=== PATIENT | female | born 2000 | race Caucasian/White ===

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

== ENCOUNTER 2022-04-24 11:17 | Emergency (ER) | payer BC, SELFPAY ==
--- NOTE | ~2022-04-24 | CT_ITS ---
EXAMINATION: CT abdomen pelvis w con DATE: 04/24/2022 15:12 INDICATION: Urinary tract infection TECHNIQUE: Computed tomography (CT) of the abdomen and pelvis was performed with 100 cc Omnipaque 350 intravenous contrast. The dose-length product was 177.50 mGy-cm. Automated exposure control and iter ative reconstruction technique were employed. COMPARISON: None. FINDINGS: Lung bases are unremarkable. Heart size normal. No significant pleural or pericardial effus ion. There is mild periportal edema. Gallbladder is contracted. There is an atrophic right kidney wit h compensatory hypertrophy of the left kidney. There are subtle geographic areas of hypoperfusion in the upper pole of the right kidney, suspicious for pyelonephritis. There is a left extrarenal pelvis. Bladder is unremarkable. The spleen, pancreas, adrenal glands are unremarkable. Nonobstructive bowel gas pattern. No free air or free fluid. No acute osseous abnormality. IMPRESSION: 1. Geographic hypoperfusion upper pole of the left kidney, suspicious for pyelonephritis. 2: Atrophic right kidney. Reviewed, dictated and finalized at location A. IMPRESSION: 1. Geographic hypoperfusion upper pole of the left kidney, suspicious for pyelo nephritis. 2: Atrophic right kidney.
[2022-04-24 11:53] VITALS: BP 138/84; PULSE 88; RESP 19; TEMP 36.7; O2SAT 100
[2022-04-24 13:29] LABS: Appearance Urine Slightly Cloudy (Clear); Bilirubin Urine 1+ (Negative); Blood Urine 2+ (Negative); Color Urine Yellow (Yellow); Glucose Urine UA Negative (Negative); Ketones Urine 3+ mg/dL (Negative); Leukocyte Esterase Ur 1+ LEU/UL (Negative); Nitrate Urine Negative (Negative); Protein Urine Negative (Negative); Specific Grav Ur 1.015 (1.001-1.035)
[2022-04-24 13:34] LABS: Mucus Urine Rare /lpf; Squamous Epithelial Cell Urine Moderate /hpf (Few); WBC Clumps Urine Present /HPF; WBC Urine 51-75 /hpf
[2022-04-24 13:36] LABS: Add Urine Microscopic? YES
[2022-04-24 13:36] LABS: Basophils Percent Auto 0.2 % (0.2-1.2); Eosinophils Absolute Auto 0.1 K/mm3 (0-0.3); Eosinophils Percent Auto 1.5 % (0-4.4); Hematocrit 34.9 % (37.0-47.0); Hemoglobin 10.5 g/dL (12.0-15.0); Immature Granulocyte Absolute 0.01 K/mm3 (0.00-0.031); Immature Granulocyte Percent A 0.1 % (0-0.5); Lymphocytes Absolute Auto 1.34 K/mm3 (0.9-3.2); Lymphocytes Percent Auto 16.6 % (18.3-44.2); Mean Corpuscular HGB Conc 30.1 g/dl (32-36); Mean Corpuscular Hemoglobin 22.1 pg (26-34); Mean Corpuscular Volume 73.5 fl (80-100); Mean Platelet Volume 11.2 fl (7.4-10.4); Monocytes Absolute Auto 0.8 K/mm3 (0.1-0.6); Monocytes Percent Auto 9.4 % (2.6-8.5); Neutrophils Absolute Auto 5.8 K/mm3 (1.3-6.7); Neutrophils Percent Auto 72.2 % (45.5-73.1); Platelet Count Result 364 k/mm3 (150-375); Red Blood Count 4.75 M/mm3 (4.2-5.4); Red Cell Distribution Width 14.6 % (11.5-14.5); White Blood Count 8.1 K/mm3 (4.5-10.0)
[2022-04-24 13:45] LABS: Alanine Aminotransferase 12 U/L (6-35); Alkaline Phosphatase 67 U/L (38-126); Anion Gap 9 mmol/L (8-16); Aspartate Amino Transferase 23 U/L (14-36); Bilirubin,Total 0.5 mg/dL (0.2-1.3); Blood Urea Nitrogen 8 mg/dL (7-17); Calcium 9.4 mg/dL (8.4-10.2); Carbon Dioxide 25 mmol/L (22-30); Chloride 103 mmol/L (98-107); Estimated CRCL calculation 110 ml/min; Estimated Glomerular Filt Rate > 60; Glucose 98 mg/dL (65-110); Potassium 3.7 mmol/L (3.4-5.0); Sodium 137 mmol/L (137-145)
--- NOTE | 2022-04-24 13:56 | ED.FEMALEGU ---
HPI - Female Genitourinary General Chief complaint: Urogenital-Female <Lisandra Pisano PA-C - Last Filed: 04/24/22 17:05> Stated complaint: bladder, kidney infection <ELÍAS Oakes Last Filed: 04/24/22 17:05> Time Seen by Provider: 04/24/22 13:23 <Lisandra Pisano PA-C - Last Filed: 04/24/22 17:05> Source: patient <ELÍAS Oakes Last Filed: 04/24/22 17:05> Mode of arrival: ambulatory <ELÍAS Oakes Last Filed: 04/24/22 17:05> Limitations: no limitations <ELÍAS Oakes Last Filed: 04/24/22 17:05> History of Present Illness HPI Narrative: Patient is a 22-year-old female who presents to the ED with report of bilateral flank pain. Patient reports she first developed flank pain, dysuria, urinary frequency 6 days ago. She was seen at an urgent care 3 days ago and told she had a urinary tract infection and possible kidney infection. She did not have lab work or imaging performed at that time. She was started on Macrobid and has been taking this as prescribed. Today, the pain became worse, prompting her evaluation in the ED. She has been taking Tylenol at home for the pain, but has not taken anything today. Also reports nausea, but denies vomiting, fever, chills, hematuria, diarrhea, constipation, abdominal pain. <Lisandra Pisano PA-C - Last Filed: 04/24/22 17:05> Related Data Allergies/Adverse reactions: Allergies Allergy/AdvReac Type Severity Reaction Status Date / Time No Known Allergies Allergy Mild Unverified 06/21/21 09:46 <ELÍAS Oakes Last Filed: 04/24/22 17:05> Review of Systems Review of Systems: CONSTITUTIONAL: Denies fever, chills, or sweats. CARDIOVASCULAR: Denies chest pain. RESPIRATORY: Denies cough or dyspnea. GASTROINTESTINAL: Reports nausea. Denies abdominal pain, constipation, vomiting, or diarrhea. GENITOURINARY: Reports dysuria, urinary frequency. Denies hematuria. MUSCULOSKELETAL: Reports bilateral flank pain. NEUROLOGIC: Denies headache, numbness, or weakness. <Lisandra Pisano PA-C - Last Filed: 04/24/22 17:05> All systems reviewed & are unremarkable except as noted in HPI and below <Lisandra Pisano PA-C - Last Filed: 04/24/22 17:05> PMFSH Past Medical History Medical History: Medical History Congenital tlizvv-hpoqaps-twxed reflux History of strep sore throat <Lisandra Pisano PA-C - Last Filed: 04/24/22 17:05> Surgical History Surgical History: Surgical History S/P tonsillectomy and adenoidectomy <Lisandra Pisano PA-C - Last Filed: 04/24/22 17:05> Family History Family History: Family History (Updated 06/21/21 @ 10:23 by Davina Gutierrez NP) Father Hypertension Heart disease Mother Asthma <Lisandra Pisano PA-C - Last Filed: 04/24/22 17:05> Social History Social History: Social History Tobacco type: e-cigarettes/vaping Alcohol intake: never Substance use: never Gender identity (if verbalized by the patient): Female <Lisandra Pisano PA-C - Last Filed: 04/24/22 17:05> Exam Narrative: GENERAL: Well appearing, well-nourished, non-toxic, in no acute distress. HEAD: Normocephalic, atraumatic. NECK: Supple. No adenopathy, no masses. RESPIRATORY: Airway patent, respirations nonlabored. Clear to auscultation bilaterally, no rales, rhonchi, wheezing. CARDIOVASCULAR: Regular rate and rhythm without murmurs, rubs, or gallops. Peripheral pulses 2+ and equal bilaterally. ABDOMINAL: Soft, mild tenderness palpation over suprapubic region. Nondistended, no hepatosplenomegaly. Normoactive BS. Bilateral CVA tenderness to percussion, L > R. MUSCULOSKELETAL: Moves all extremities. Strength/ROM intact without gross deformities. Mild tenderness to palpation in the lower lumbar region bilaterally. No midline thoracic or lumba
[2022-04-24 14:02] LABS: Anisocytosis 1+ (NORMAL); Hypochromasia 1+ (NORMAL); Platelet Estimate Adequate (Adequate)
[2022-04-24] MEDS: SODIUM CHLORIDE 0.9% IV 1,000 ML 999 ML IV CONT ×2 (14:11→15:15)
[2022-04-24] MEDS: ONDANSETRON INJ 4 MG/2 ML VIAL IV PUSH (14:12)
[2022-04-24 15:26] VITALS: BP 122/78; PULSE 76; RESP 18; O2SAT 99
== END 2022-04-24 16:34 | disposition home or self-care (01) ==
PROVIDERS: Physician Assistant; Emergency Provider Emergency Medicine
DX: N12 Tubulo-interstitial nephritis, not specified as acute or chronic (principal); F17.290 Nicotine dependence, other tobacco product, uncomplicated; Z87.718 Personal history of other specified (corrected) congenital malformations of genitourinary system; N26.1 Atrophy of kidney (terminal)
CPT/HCPCS: 36415; 74177; 80053; 81001; 81025; 85025; 87086; 87088; 96361; 96365; 96367; 96375; 99284; J0131; J0696; J2405; J7030; Q9967

== ENCOUNTER 2022-07-02 19:20 | Emergency (ER) | payer BC, SELFPAY ==
--- NOTE | ~2022-07-02 | CT_ITS ---
EXAMINATION: CT abdomen pelvis w con DATE: 07/02/2022 21:00 INDICATION: Left flank pain. TECHNIQUE: Computed tomography (CT) of the abdomen and pelvis was performed with 100 mL Omnipaque 350 intravenous contrast. Automated exposure control and iterative reconstruction technique were employe d. The dose-length product was 189.54 mGy-cm. COMPARISON: CT abdomen and pelvis 04/24/2022 FINDINGS: The visualized portions of the lung bases are clear without pneumonia or pleural effusion. The heart size is normal. No pericardial effusion. The liver, gallbladder, spleen, pancreas, and adre nal glands are normal. There is moderate atrophy of right kidney. There is mild atrophy of left kidne y. There is urothelial thickening and enhancement throughout the left ureter, consistent with pyeliti s. There are no dilated loops of bowel. The appendix is normal. There are no pathologically enlarged lymph nodes. There is physiologic fluid in the pelvis. There is a benign bone island in proximal righ t femur. IMPRESSION: 1. Left-sided pyelitis. 2. Moderate atrophy of right kidney and mild atrophy of left kidney. Reviewed, dictated and finalized at location A.
[2022-07-02 19:25] VITALS: BP 134/85; PULSE 102; RESP 18; TEMP 36.8; O2SAT 99
--- NOTE | 2022-07-02 19:44 | PC.NURSE ---
Patient states she is having pain in the left flank area. patient has history of kidney inflammation and bladder infections. patient denies pain with urination or urgency
[2022-07-02 20:16] LABS: Basophils Percent Auto 0.4 % (0.2-1.2); Eosinophils Absolute Auto 0.2 K/mm3 (0-0.3); Eosinophils Percent Auto 1.3 % (0-4.4); Hematocrit 35.3 % (37.0-47.0); Hemoglobin 10.4 g/dL (12.0-15.0); Immature Granulocyte Absolute 0.04 K/mm3 (0.00-0.031); Immature Granulocyte Percent A 0.4 % (0-0.5); Lymphocytes Absolute Auto 1.29 K/mm3 (0.9-3.2); Lymphocytes Percent Auto 11.5 % (18.3-44.2); Mean Corpuscular HGB Conc 29.5 g/dl (32-36); Mean Corpuscular Hemoglobin 21.1 pg (26-34); Mean Corpuscular Volume 71.7 fl (80-100); Mean Platelet Volume 10.8 fl (7.4-10.4); Monocytes Absolute Auto 0.9 K/mm3 (0.1-0.6); Monocytes Percent Auto 7.7 % (2.6-8.5); Neutrophils Absolute Auto 8.9 K/mm3 (1.3-6.7); Neutrophils Percent Auto 78.7 % (45.5-73.1); Platelet Count Result 412 k/mm3 (150-375); Red Blood Count 4.92 M/mm3 (4.2-5.4); Red Cell Distribution Width 15.8 % (11.5-14.5); White Blood Count 11.3 K/mm3 (4.5-10.0)
[2022-07-02 20:17] LABS: Appearance Urine Clear (Clear); Bilirubin Urine Negative (Negative); Color Urine Yellow (Yellow); Glucose Urine UA Negative (Negative); Ketones Urine Negative (Negative); Leukocyte Esterase Ur 1+ LEU/UL (Negative); Nitrate Urine Negative (Negative); Protein Urine 2+ mg/dL (Negative); Urobilinogen Urine 0.2 mg/dL (<2.0)
[2022-07-02] MEDS: ONDANSETRON INJ 4 MG/2 ML VIAL IV PUSH (20:20)
[2022-07-02] MEDS: KETOROLAC 15 MG/ML VIAL (*BKC) IV PUSH (20:20)
[2022-07-02 20:21] LABS: Bacteria Urine Trace /hpf; Mucus Urine Rare /lpf; Squamous Epithelial Cell Urine Rare /hpf (Few); WBC Urine >75 /hpf
[2022-07-02 20:26] LABS: Alanine Aminotransferase 17 U/L (6-35); Albumin Level 5.1 g/dL (3.5-5.1); Alkaline Phosphatase 49 U/L (38-126); Anion Gap 15 mmol/L (8-16); Aspartate Amino Transferase 33 U/L (14-36); Bilirubin,Total 0.4 mg/dL (0.2-1.3); Blood Urea Nitrogen 8 mg/dL (7-17); Calcium 9.8 mg/dL (8.4-10.2); Carbon Dioxide 22 mmol/L (22-30); Chloride 103 mmol/L (98-107); Estimated Glomerular Filt Rate > 60; Glucose 82 mg/dL (65-110); Potassium 3.8 mmol/L (3.4-5.0); Sodium 140 mmol/L (137-145)
[2022-07-02 20:28] LABS: Add Urine Microscopic? YES; Blood Urine Trace-Intact (Negative)
--- NOTE | 2022-07-02 20:29 | ED.BACK ---
HPI - Back Pain/Injury General Chief Complaint: Back Pain/Injury Stated Complaint: flank pain Time Seen by Provider: 07/02/22 19:35 History of Present Illness HPI Narrative: 22-year-old female here with history of congenital vesicoureteral reflux for evaluation of back pain over the past several days. States that the pain is present in her left flank and does not radiate. She notes a history of this pain when she was diagnosed with a kidney infection 3 months ago at this hospital. Patient reports dysuria but no urgency or frequency, hematuria, fevers or chills. Has not taken any medication for her pain. Reports some nausea but no vomiting or abdominal pain. Related Data Allergies Allergy/AdvReac Type Severity Reaction Status Date / Time No Known Allergies Allergy Mild Unverified 07/02/22 19:41 Review of Systems Review of Systems: Gen.: Denies fevers or chills Eyes: Denies eye pain or visual change ENT: Denies congestion Respiratory: Denies shortness of breath or cough CV: Denies chest pain or palpitations GI: Denies abdominal pain nausea, emesis or diarrhea reports burning. Musculoskeletal: Reports left sided flank pain. Neuro: Denies numbness, tingling, weakness or focal weakness Skin: Denies rash Except as documented, all other systems reviewed and negative PMFSH Past Medical History Medical History Congenital nhyfbs-zvqdkdm-fpoti reflux History of strep sore throat Surgical History Surgical History S/P tonsillectomy and adenoidectomy Family History Family History (Updated 06/21/21 @ 10:23 by Davina Gutierrez NP) Father Hypertension Heart disease Mother Asthma Social History Social History Tobacco type: e-cigarettes/vaping Alcohol intake: never Substance use: never Gender identity (if verbalized by the patient): Female Exam Narrative: APPEARANCE: Well appearing, no pain in distress, well-nourished. Head: Normocephalic and atraumatic. EYES: PERRLA/EOMI, conjunctivae clear NOSE: No nasal drainage EARS: External ear normal in appearance THROAT: Oropharynx is clear. Mucous membranes are moist. NECK: Supple. No adenopathy, no masses. RESPIRATORY: Airway patent, respirations nonlabored. Clear to auscultation bilaterally, no rales, rhonchi, wheezing. CARDIOVASCULAR: Regular rate and rhythm without murmurs, rubs, or gallops. ABDOMINAL: Normoactive bowel sounds. Soft, nontender, nondistended. No rebound tenderness or guarding. MUSCULOSKELETAL: Left-sided CVA tenderness. Extremities are warm and well-perfused. Moves all extremities well. No edema. NEURO: Normal speech. No focal neurologic deficits. SKIN: Skin is warm and dry. No rashes. PSYCHIATRIC: Normal affect/mood. Course Vital Signs Vital signs: Vital Signs Temperature 98.2 F 07/02/22 19:25 Pulse Rate 102 H 07/02/22 19:25 Respiratory Rate 18 07/02/22 19:25 Blood Pressure 134/85 07/02/22 19:25 Pulse Oximetry 99 07/02/22 19:25 Oxygen Delivery Room Air 07/02/22 19:25 Temperature 98.2 F 07/02/22 19:25 Pulse Rate 72 07/02/22 22:05 Respiratory Rate 18 07/02/22 22:05 Blood Pressure 132/85 07/02/22 22:05 Pulse Oximetry 100 07/02/22 22:05 Oxygen Delivery Room Air 07/02/22 19:25 MDM - Back Pain/Injury MDM Narrative Medical decision making narrative: 22-year-old female here for evaluation of left flank pain and urinary symptoms over the past several days. Here she is nontoxic-appearing, initially slightly tachycardic to 102 which resolved with IV fluids. She has left CVA tenderness. Work-up significant for leukocytosis to 11.3, urinalysis with over 75 white blood cells and leuks consistent with UTI. Normal lactic. Normal kidney function. CT abdomen pelvis with evidence of pyelitis and atrophy of the kidneys,
[2022-07-02 20:39] LABS: Hypochromasia 2+ (NORMAL)
[2022-07-02 20:40] LABS: Microcytosis 1+ (NORMAL)
[2022-07-02] MEDS: SODIUM CHLORIDE 0.9% IV 1,000 ML 999 ML IV CONT (21:28)
[2022-07-02 21:41] LABS: Lactic Acid Reflex 0.8 mmol/L (0.7-2.0)
[2022-07-02 22:05] VITALS: BP 132/85; PULSE 72; RESP 18; O2SAT 100
--- NOTE | 2022-07-20 08:23 | PC.NURSE ---
LATE ENTRY This note is being entered to document information to the patient's record. The following information was omitted on [07/02/22], by [Dinah CARLSON]. NS stopped at [id number].
== END 2022-07-02 22:15 | disposition home or self-care (01) ==
PROVIDERS: Physician Assistant; Emergency Provider Emergency Medicine
DX: N10 Acute pyelonephritis (principal); N39.0 Urinary tract infection, site not specified; B96.89 Other specified bacterial agents as the cause of diseases classified elsewhere; Z16.23 Resistance to quinolones and fluoroquinolones; Q62.7 Congenital vesico-uretero-renal reflux; F17.290 Nicotine dependence, other tobacco product, uncomplicated
CPT/HCPCS: 36415; 74177; 80053; 81001; 81025; 83605; 85025; 87077; 87086; 87147; 87181; 87186; 96361; 96365; 96375; 99284; J0696; J1885; J2405; J7030; Q9967

== ENCOUNTER 2022-07-14 18:31 | Emergency (ER) | payer BC, SELFPAY ==
[2022-07-14] VITALS (7 sets, daily range): BP systolic 122–138; BP diastolic 74–84; PULSE 80–93; RESP 16; TEMP 36.5; O2SAT 96–100
--- NOTE | ~2022-07-14 | CT_ITS ---
EXAMINATION: CT abdomen pelvis w con DATE: 07/14/2022 20:29 INDICATION: Bilateral flank pain. Recent pyelonephritis. TECHNIQUE: Computed tomography (CT) of the abdomen and pelvis was performed with 100 mL Omnipaque-350 intravenous contrast. Automated exposure control and iterative reconstruction technique were employe d. The dose-length product was 177.41 mGy-cm. COMPARISON: 07/02/2022 FINDINGS: Lung bases are clear. Heart size is normal. No pericardial or pleural effusion. Liver, gallbladder, s pleen, pancreas and bilateral adrenal glands are normal. Cortical atrophy at both kidneys, moderate o n the right and mild on the left. The prior thickening enhancing urothelium at the left renal pelvis has resolved. Bladder, uterus and bilateral adnexa are unremarkable. Tampon within vaginal vault. [place] els including the appendix are normal. No free intraperitoneal gas or fluid. No pathologically enlarg ed abdominal or pelvic lymphadenopathy. Bone island at the right femoral neck. IMPRESSION: 1. No acute intra-abdominal/pelvic process. 2. Cortical scarring at the bilateral kidneys, moderate on the right and mild on the left likely sequ geri of prior infections. Reviewed, dictated and finalized at location A. IMPRESSION: 1. No acute intra-abdominal/pelvic process. 2. Cortical scarring at the bilateral kidneys, moderate on the right and mild o n the left likely sequela of prior infections.
--- NOTE | 2022-07-14 19:06 | ED.GENADULT ---
HPI - General Adult General Chief complaint: Back Pain/Injury <Lisandra Key PA-C - Last Filed: 07/14/22 22:00> Stated complaint: lower back pain <ELÍAS Stanley Last Filed: 07/14/22 22:00> Time Seen by Provider: 07/14/22 18:46 <ELÍAS Stanley Last Filed: 07/14/22 22:00> Source: patient and old records reviewed <ELÍAS Stanley Last Filed: 07/14/22 22:00> Mode of arrival: ambulatory <ELÍAS Stanley Last Filed: 07/14/22 22:00> Limitations: no limitations <ELÍAS Stanley Last Filed: 07/14/22 22:00> History of Present Illness HPI narrative: Patient is a 22-year-old female, with PMHx of congenital vesicoureteral reflux, who presents the ED with report of bilateral flank pain. Per patient's records, patient was seen in the ED on 07/02 for similar symptoms and diagnosed with acute left-sided pyelitis with urinary tract infection. She was given a dose of Ceftriaxone in the ED and prescribed ciprofloxacin initially, however culture resulted to be resistant to Cipro. The provider tried to call patient to inform Bactrim being was being sent to the pharmacy however patient was unaware of this. Culture was sensitive to Ceftriaxone. Patient reports she has felt improved since the last time she was here, however over the last 2 days she has had worsening pain in her flanks bilaterally. Last took Tylenol earlier today without relief. Denies any fever, nausea, vomiting, dysuria, hematuria, abdominal pain. <ELÍAS Stanley Last Filed: 07/14/22 22:00> Related Data Allergies/adverse reactions: Allergies Allergy/AdvReac Type Severity Reaction Status Date / Time No Known Allergies Allergy Mild Verified 07/14/22 18:45 <ELÍAS Stanley Last Filed: 07/14/22 22:00> Review of Systems Review of Systems: CONSTITUTIONAL: Denies fever, chills, or sweats. CARDIOVASCULAR: Denies chest pain. RESPIRATORY: Denies dyspnea. GASTROINTESTINAL: Denies abdominal pain, nausea, vomiting, or diarrhea. GENITOURINARY: Denies dysuria or hematuria. MUSCULOSKELETAL: Reports bilateral flank pain. <Lisandra Key PA-C - Last Filed: 07/14/22 22:00> All systems reviewed & are unremarkable except as noted in HPI and below <Lisandra Key PA-C - Last Filed: 07/14/22 22:00> [facility] Past Medical History Medical History: Medical History Congenital bhiyhy-ftuausu-wehar reflux History of strep sore throat <Lisandra Key PA-C - Last Filed: 07/14/22 22:00> Surgical History Surgical History: Surgical History S/P tonsillectomy and adenoidectomy <Lisandra Key PA-C - Last Filed: 07/14/22 22:00> Family History Family History: Family History (Updated 06/21/21 @ 10:23 by Davina Gutierrez NP) Father Hypertension Heart disease Mother Asthma <Lisandra Key PA-C - Last Filed: 07/14/22 22:00> Social History Social History: Social History Tobacco type: e-cigarettes/vaping Alcohol intake: never Substance use: never Gender identity (if verbalized by the patient): Female <Lisandra Key PA-C - Last Filed: 07/14/22 22:00> Exam Narrative: GENERAL: Well appearing, thin, non-toxic, in no acute distress. HEAD: Normocephalic, atraumatic. NECK: Supple. No adenopathy, no masses. RESPIRATORY: Airway patent, respirations nonlabored. Clear to auscultation bilaterally, no rales, rhonchi, wheezing. CARDIOVASCULAR: Regular rate and rhythm without murmurs, rubs, or gallops. Peripheral pulses 2+ and equal bilaterally. ABDOMINAL: Soft, no significant tenderness palpation, nondistended, no hepatosplenomegaly. Normoactive BS. Bilateral CVA tenderness to percussion, worse on left. MUSCULOSKELETAL: M
[2022-07-14 19:19] LABS: Basophils Percent Auto 0.5 % (0.2-1.2); Eosinophils Absolute Auto 0.3 K/mm3 (0-0.3); Eosinophils Percent Auto 4.1 % (0-4.4); Hematocrit 37.4 % (37.0-47.0); Hemoglobin 11.1 g/dL (12.0-15.0); Immature Granulocyte Absolute 0.02 K/mm3 (0.00-0.031); Immature Granulocyte Percent A 0.3 % (0-0.5); Lymphocytes Absolute Auto 1.64 K/mm3 (0.9-3.2); Mean Corpuscular HGB Conc 29.7 g/dl (32-36); Mean Corpuscular Hemoglobin 21.4 pg (26-34); Mean Corpuscular Volume 72.1 fl (80-100); Mean Platelet Volume 11.3 fl (7.4-10.4); Monocytes Absolute Auto 0.7 K/mm3 (0.1-0.6); Monocytes Percent Auto 11.1 % (2.6-8.5); Neutrophils Absolute Auto 3.9 K/mm3 (1.3-6.7); Platelet Count Result 430 k/mm3 (150-375); Red Blood Count 5.19 M/mm3 (4.2-5.4); Red Cell Distribution Width 15.7 % (11.5-14.5); White Blood Count 6.6 K/mm3 (4.5-10.0)
[2022-07-14 19:37] LABS: Alanine Aminotransferase 19 U/L (6-35); Albumin Level 5.2 g/dL (3.5-5.1); Alkaline Phosphatase 51 U/L (38-126); Anion Gap 12 mmol/L (8-16); Aspartate Amino Transferase 36 U/L (14-36); Bilirubin,Total 0.4 mg/dL (0.2-1.3); Blood Urea Nitrogen 8 mg/dL (7-17); Carbon Dioxide 23 mmol/L (22-30); Chloride 105 mmol/L (98-107); Estimated CRCL calculation 91 ml/min; Estimated Glomerular Filt Rate > 60; Glucose 94 mg/dL (65-110); Potassium 3.8 mmol/L (3.4-5.0); Sodium 140 mmol/L (137-145)
[2022-07-14 19:51] LABS: Anisocytosis 1+ (NORMAL); Hypochromasia 1+ (NORMAL); Microcytosis 2+ (NORMAL); Ovalocytes 1+ (NORMAL); Platelet Estimate Increased (Adequate); Schistocytes None Seen (NORMAL)
[2022-07-14 19:59] LABS: Appearance Urine Clear (Clear); Bilirubin Urine Negative (Negative); Blood Urine 2+ (Negative); Color Urine Yellow (Yellow); Glucose Urine UA Negative (Negative); Ketones Urine Negative (Negative); Leukocyte Esterase Ur Negative LEU/UL (Negative); Nitrate Urine Negative (Negative); Protein Urine Negative (Negative); Specific Grav Ur >= 1.030 (1.001-1.035); Urobilinogen Urine 0.2 mg/dL (<2.0); pH Urine 6.5 (5.0-9.0)
[2022-07-14] MEDS: ONDANSETRON INJ 4 MG/2 ML VIAL IV PUSH (19:59)
[2022-07-14] MEDS: SODIUM CHLORIDE 0.9% IV 1,000 ML 999 ML IV CONT (19:59)
[2022-07-14 20:08] LABS: Bacteria Urine Trace /hpf; Mucus Urine Rare /lpf; RBC Urine 0-2 /hpf (0-2); Squamous Epithelial Cell Urine Occasional /hpf (Few); WBC Urine 0-3 /hpf
[2022-07-14 20:10] LABS: Add Urine Microscopic? YES
== END 2022-07-14 21:59 | disposition home or self-care (01) ==
PROVIDERS: Emergency Medicine; Emergency Provider Emergency Medicine
DX: R10.9 Unspecified abdominal pain (principal); F17.290 Nicotine dependence, other tobacco product, uncomplicated; Q62.7 Congenital vesico-uretero-renal reflux
CPT/HCPCS: 36415; 74177; 80053; 81001; 81025; 85025; 96361; 96365; 96375; 99284; J0131; J2405; J7030; Q9967

== ENCOUNTER 2022-08-27 11:06 | Emergency (ER) | payer SELFPAY ==
--- NOTE | ~2022-08-27 | CT_ITS ---
EXAMINATION: CT abdomen pelvis w con INDICATION: Bilateral flank pain, dysuria TECHNIQUE: Computed tomographic images of the abdomen and pelvis were obtained after the administrati on of 95 cc of Omnipaque 350 intravenous contrast. The dose-length product (DLP) was 177.74 mGy-cm. A utomated exposure control and iterative reconstruction technique were employed. COMPARISON: 07/14/2022 FINDINGS: The lung bases are clear. The heart size is normal. The liver, spleen, pancreas, gallbladde r, and adrenal glands are normal. There are multiple areas of chronic cortical scarring in the kidney s, right greater than left. There is mild inflammatory change surrounding the urinary bladder. The ap pendix is normal. No pathologically enlarged abdominal or pelvic lymph nodes are identified. There is no free intraperitoneal gas or evidence of bowel obstruction. IMPRESSION: 1. Mild inflammatory change surrounding the urinary bladder, consistent with cystitis. 2. Chronic cortical scarring of the kidneys. Reviewed, dictated and finalized at location B. T LINER IMPRESSION: 1. Mild inflammatory change surrounding the urinary bladder, consistent with cy stitis. 2. Chronic cortical scarring of the kidneys.
[2022-08-27 11:10] VITALS: BP 123/80; PULSE 97; RESP 16; TEMP 36.9; O2SAT 97
[2022-08-27 11:38] LABS: Alanine Aminotransferase 16 U/L (6-35); Albumin Level 4.9 g/dL (3.5-5.1); Alkaline Phosphatase 50 U/L (38-126); Anion Gap 11 mmol/L (8-16); Aspartate Amino Transferase 23 U/L (14-36); Bilirubin,Total 0.9 mg/dL (0.2-1.3); Blood Urea Nitrogen 13 mg/dL (7-17); Carbon Dioxide 22 mmol/L (22-30); Chloride 103 mmol/L (98-107); Estimated CRCL calculation 107 ml/min; Estimated Glomerular Filt Rate > 60; Glucose 103 mg/dL (65-110); Lipase 72 U/L (23-300); Potassium 3.9 mmol/L (3.4-5.0); Sodium 136 mmol/L (137-145)
[2022-08-27 11:43] LABS: Basophils Percent Auto 0.2 % (0.2-1.2); Eosinophils Absolute Auto 0.2 K/mm3 (0-0.3); Eosinophils Percent Auto 2.2 % (0-4.4); Hematocrit 35.7 % (37.0-47.0); Hemoglobin 10.4 g/dL (12.0-15.0); Immature Granulocyte Absolute 0.04 K/mm3 (0.00-0.031); Immature Granulocyte Percent A 0.4 % (0-0.5); Immature Platelet Fraction Pct 2.9 % (0.9-11.2); Lymphocytes Absolute Auto 0.43 K/mm3 (0.9-3.2); Lymphocytes Percent Auto 4.2 % (18.3-44.2); Mean Corpuscular HGB Conc 29.1 g/dl (32-36); Mean Corpuscular Hemoglobin 21.1 pg (26-34); Mean Corpuscular Volume 72.4 fl (80-100); Mean Platelet Volume 11.2 fl (7.4-10.4); Monocytes Absolute Auto 0.4 K/mm3 (0.1-0.6); Monocytes Percent Auto 4.3 % (2.6-8.5); Neutrophils Absolute Auto 9.1 K/mm3 (1.3-6.7); Neutrophils Percent Auto 88.7 % (45.5-73.1); Platelet Count Result 269 k/mm3 (150-375); Red Blood Count 4.93 M/mm3 (4.2-5.4); Red Cell Distribution Width 15.7 % (11.5-14.5); White Blood Count 10.3 K/mm3 (4.5-10.0)
[2022-08-27 11:45] LABS: Appearance Urine Clear (Clear); Bilirubin Urine 1+ (Negative); Blood Urine Trace-lysed (Negative); Color Urine Yellow (Yellow); Glucose Urine UA Negative (Negative); Ketones Urine 1+ mg/dL (Negative); Leukocyte Esterase Ur Trace LEU/UL (Negative); Nitrate Urine Negative (Negative); Protein Urine Negative (Negative); Urobilinogen Urine 0.2 mg/dL (<2.0); pH Urine 5.5 (5.0-9.0)
[2022-08-27 11:52] LABS: Mucus Urine Rare /lpf; Squamous Epithelial Cell Urine Few /hpf (Few); WBC Clumps Urine Present /HPF; WBC Urine 16-20 /hpf
[2022-08-27 12:12] LABS: Add Urine Microscopic? YES
[2022-08-27 12:47] LABS: Hypochromasia 2+ (NORMAL); Platelet Estimate Adequate (Adequate)
[2022-08-27 12:48] LABS: Anisocytosis 2+ (NORMAL); Ovalocytes 1+ (NORMAL); Schistocytes 1+ (NORMAL)
[2022-08-27 12:50] LABS: Poikilocytosis 1+ (NORMAL); Stomatocytes 1+ (NORMAL)
--- NOTE | 2022-08-27 14:50 | ED.GENADULT ---
HPI - General Adult General Chief complaint: Nausea/Vomiting/Diarrhea <ELÍAS Stalney Last Filed: 08/27/22 17:46> Stated complaint: vomiting <ELÍAS Stanley Last Filed: 08/27/22 17:46> Time Seen by Provider: 08/27/22 14:47 <ELÍAS Stanley Last Filed: 08/27/22 17:46> Source: patient and old records reviewed <ELÍAS Stanley Last Filed: 08/27/22 17:46> Mode of arrival: ambulatory <ELÍAS Stanley Last Filed: 08/27/22 17:46> Limitations: no limitations <ELÍAS Stanley Last Filed: 08/27/22 17:46> History of Present Illness HPI narrative: Patient is a 22 y/o female, with past medical history of ureterovesical reflux, frequent urinary tract infections/pyelonephritis, who presents to the ED with c/o bilateral flank pain. Patient reports having pain for the last 2 days. She took Tylenol yesterday for her pain, but has not taken anything else. Reports nausea and vomiting this morning and dysuria, denies hematuria, fevers, diarrhea, constipation. Denies abdominal pain. Patient has not followed up with urology. <ELÍAS Stanley Last Filed: 08/27/22 17:46> Related Data Allergies/adverse reactions: Allergies Allergy/AdvReac Type Severity Reaction Status Date / Time No Known Allergies Allergy Mild Verified 07/14/22 18:45 <ELÍAS Stanley Last Filed: 08/27/22 17:46> Review of Systems Review of Systems: CONSTITUTIONAL: Denies fever, chills, or sweats. CARDIOVASCULAR: Denies chest pain. RESPIRATORY: Denies dyspnea. GASTROINTESTINAL: Reports N/V. Denies abdominal pain, constipation, or diarrhea. GENITOURINARY: Reports dysuria. Denies hematuria. MUSCULOSKELETAL: Reports bilateral flank pain. <ELÍAS Stanley Last Filed: 08/27/22 17:46> All systems reviewed & are unremarkable except as noted in HPI and below <Lisandra Key PA-C - Last Filed: 08/27/22 17:46> [facility] Past Medical History Medical History: Medical History Congenital muqhrz-rlvxymd-pgzjv reflux History of strep sore throat <Lisandra Key PA-C - Last Filed: 08/27/22 17:46> Surgical History Surgical History: Surgical History S/P tonsillectomy and adenoidectomy <Lisandra Key PA-C - Last Filed: 08/27/22 17:46> Family History Family History: Family History (Updated 06/21/21 @ 10:23 by Davina Gutierrez NP) Father Hypertension Heart disease Mother Asthma <Lisandra Key PA-C - Last Filed: 08/27/22 17:46> Social History Social History: Social History Tobacco type: e-cigarettes/vaping Alcohol intake: never Substance use: never Gender identity (if verbalized by the patient): Female <Lisandra Key PA-C - Last Filed: 08/27/22 17:46> Exam Narrative: GENERAL: Well appearing, thin, non-toxic, in no acute distress. HEAD: Normocephalic, atraumatic. NECK: Supple. No adenopathy, no masses. RESPIRATORY: Airway patent, respirations nonlabored. Clear to auscultation bilaterally, no rales, rhonchi, wheezing. CARDIOVASCULAR: Regular rate and rhythm without murmurs, rubs, or gallops. Peripheral pulses 2+ and equal bilaterally. ABDOMINAL: Soft, no significant tenderness to palpation, nondistended, no hepatosplenomegaly. Normoactive BS. Bilateral CVA tenderness to palpation and percussion. MUSCULOSKELETAL: Moves all extremities. Strength/ROM intact without gross deformities. SKIN: Warm, dry, normal color. No rashes. NEURO: A&O X3. Speech clear. Cranial nerves II-XII grossly intact. Steady gait. No ataxic movements. PSYCHIATRIC: Appropriate mood and affect. Normal interaction. <Lisandra Key PA-C - Last Filed: 08/27/22 17:46> Course TAX COLLECTION COORDINATOR/PA Physician Supervis
[2022-08-27] MEDS: SODIUM CHLORIDE 0.9% IV 1,000 ML 999 ML IV CONT (16:08)
[2022-08-27] MEDS: ONDANSETRON INJ 4 MG/2 ML VIAL IV PUSH (16:09)
[2022-08-27 17:35] VITALS: TEMP 36.9
[2022-08-27 17:43] VITALS: BP 133/74; PULSE 90; RESP 18; O2SAT 99
== END 2022-08-27 17:43 | disposition home or self-care (01) ==
LOC: ANHED 16:36
PROVIDERS: Emergency Medicine; Emergency Provider Preventive Medicine Aerospace Medicine
DX: N30.01 Acute cystitis with hematuria (principal); F17.290 Nicotine dependence, other tobacco product, uncomplicated; Z87.718 Personal history of other specified (corrected) congenital malformations of genitourinary system
CPT/HCPCS: 36415; 74177; 80053; 81001; 81025; 83690; 85025; 85055; 87077; 87086; 87088; 96361; 96365; 96375; 99284; J0131; J0696; J2405; J7030; Q9967

== ENCOUNTER 2023-05-12 06:42 | Emergency (ER) | payer BC, SELFPAY ==
--- NOTE | ~2023-05-12 | CT_ITS ---
CT of the Abdomen and Pelvis: Indication: Bilateral flank pain Technique: 2.5 mm axial scans were obtained through the abdomen and pelvis following intravenous adm inistration of 100 cc of Omnipaque 350. Dose reduction technique was used on this scan by utilizing a utomated exposure control and iterative reconstruction technique. The dose-length product (DLP) was 1 90.62 mGy-cm. COMPARISON: 08/27/2022 Findings: Scans through the lung bases are unremarkable. The liver, spleen, pancreas, gallbladder, and adrenal glands are within normal limits. Stable areas o f chronic right renal parenchymal scarring are noted. Probable additional focal parenchymal scarring at the left upper renal pole. No evidence of aortic aneurysm. No lymphadenopathy. No bowel obstruction or bowel wall thickening. There is no evidence to suggest acute appendicitis. Images through the pelvis were performed. Urinary bladder unremarkable. No adnexal mass evident. Trac e free fluid present in the pelvis. Impression: No acute abnormality. Bilateral chronic renal parenchymal scarring, right worse than left, unchanged. Reviewed, dictated and finalized at [facility]. Impression: No acute abnormality. Bilateral chronic renal parenchymal scarring, right worse than left, unchanged.
[2023-05-12 06:49] VITALS: BP 144/106; PULSE 104; RESP 15; O2SAT 100
[2023-05-12 07:01] VITALS: BP 126/98; O2SAT 100
[2023-05-12 07:03] LABS: Basophils Percent Auto 0.3 % (0.2-1.2); Eosinophils Absolute Auto 0.2 K/mm3 (0-0.3); Eosinophils Percent Auto 3.4 % (0-4.4); Hematocrit 39.5 % (37.0-47.0); Hemoglobin 11.4 g/dL (12.0-15.0); Immature Granulocyte Absolute 0.02 K/mm3 (0.00-0.031); Immature Granulocyte Percent A 0.3 % (0-0.5); Lymphocytes Absolute Auto 2.01 K/mm3 (0.9-3.2); Lymphocytes Percent Auto 28.6 % (18.3-44.2); Mean Corpuscular HGB Conc 28.9 g/dl (32-36); Mean Corpuscular Hemoglobin 21.3 pg (26-34); Mean Corpuscular Volume 73.7 fl (80-100); Mean Platelet Volume 10.2 fl (7.4-10.4); Monocytes Absolute Auto 0.6 K/mm3 (0.1-0.6); Monocytes Percent Auto 8.9 % (2.6-8.5); Neutrophils Absolute Auto 4.1 K/mm3 (1.3-6.7); Neutrophils Percent Auto 58.5 % (45.5-73.1); Platelet Count Result 371 k/mm3 (150-375); Red Blood Count 5.36 M/mm3 (4.2-5.4); Red Cell Distribution Width 16.8 % (11.5-14.5)
[2023-05-12 07:14] LABS: Alanine Aminotransferase 17 U/L (6-35); Albumin Level 4.8 g/dL (3.5-5.1); Alkaline Phosphatase 55 U/L (38-126); Anion Gap 11 mmol/L (8-16); Aspartate Amino Transferase 33 U/L (14-36); Bilirubin,Total 0.5 mg/dL (0.2-1.3); Blood Urea Nitrogen 10 mg/dL (7-17); Calcium 9.2 mg/dL (8.4-10.2); Carbon Dioxide 25 mmol/L (22-30); Chloride 103 mmol/L (98-107); Estimated CRCL calculation 105 ml/min; Estimated Glomerular Filt Rate > 60; Glucose 98 mg/dL (65-110); Lipase 453 U/L (23-300); Potassium 3.7 mmol/L (3.4-5.0); Sodium 139 mmol/L (137-145)
--- NOTE | 2023-05-12 07:24 | ED.ABDPAIN ---
HPI - Abdominal Pain General Chief Complaint: Abdominal Pain Stated Complaint: flank pain Time Seen by Provider: 05/12/23 07:24 Source: patient Mode of arrival: ambulatory Limitations: no limitations History of Present Illness HPI narrative: Patient drove herself to the emergency room complaining of flank pain bilaterally mainly at the left side started yesterday, denies aggravating or relieving factors, working at [employer], was quite a bit of lifting and standing. She denies any fever, chills, nausea, vomiting, radiation of pain, urinary symptoms. Related Data Allergies Allergy/AdvReac Type Severity Reaction Status Date / Time No Known Allergies Allergy Mild Verified 05/12/23 06:52 Review of Systems Review of Systems: All systems reviewed & are unremarkable except as noted in HPI and below PMFSH Past Medical History Medical History Congenital dhgxum-noqhsqj-hplro reflux History of strep sore throat Surgical History Surgical History S/P tonsillectomy and adenoidectomy Family History Family History Father Hypertension Heart disease Mother Asthma Social History Social History Tobacco type: e-cigarettes/vaping Alcohol intake: never Substance use: never Living arrangements: with family Gender identity (if verbalized by the patient): Female Exam Narrative: General appearance: Well-developed, well-nourished Skin: Normal color Head: Normocephalic, nontraumatic Eyes: Clear conjunctiva ENT: Oropharynx normal, ears normal, nose normal Neck: Supple, nontender Chest and respiratory: Airway patent, no respiratory distress, no accessory muscle use Heart: Regular rate/rhythm Abdomen: Soft, nontender, no organomegaly, quiet bowel sounds Vascular: Normal peripheral pulses, normal capillary refill. Musculoskeletal: Diffuse tenderness of the lower back bilaterally in the flank area bilaterally. 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, no gross motor deficit Course Vital Signs Vital signs: Vital Signs Pulse Rate 104 H 05/12/23 06:49 Respiratory Rate 15 05/12/23 06:49 Blood Pressure 144/106 H 05/12/23 06:49 Pulse Oximetry 100 05/12/23 06:49 Oxygen Delivery Room Air 05/12/23 06:49 Pulse Rate 104 H 05/12/23 06:49 Respiratory Rate 15 05/12/23 06:49 Blood Pressure 126/98 H 05/12/23 07:01 Pulse Oximetry 100 05/12/23 07:01 Oxygen Delivery Room Air 05/12/23 06:49 MDM - Abdominal Pain MDM Narrative Medical decision making narrative: Patient presents with flank pain bilaterally mainly on the left side, physical exam is consistent with diffuse tenderness across lower back and flank area bilaterally. Work-up today include CBC, CMP, lipase, urine analysis which showed elevated lipase 453, patient does not have any nausea or vomiting or abdominal pain. CT abdomen and pelvis showed bilateral chronic renal parenchymal scarring, right worse than left, unchanged from previous CT scan. Musculoskeletal lower back pain is my concern. Patient to be discharged on naproxen and Flexeril and to be excused of work for 2 days. Differential Diagnosis Differential diagnosis: Likely calculus of kidney and other (Musculoskeletal pain, urinary tract infection) Medical Records Attestation: I reviewed the patient's medical records. Lab Data Attestation: I reviewed the patient's lab results. 05/12/23 06:57 05/12/23 06:57 Labs: Lab
[2023-05-12 07:25] LABS: Hypochromasia 1+ (NORMAL); Platelet Estimate Adequate (Adequate)
[2023-05-12 07:26] LABS: Anisocytosis 1+ (NORMAL); Microcytosis 1+ (NORMAL); Schistocytes None Seen (NORMAL)
[2023-05-12 07:33] LABS: Appearance Urine Clear (Clear); Bacteria Urine None Seen /hpf; Bilirubin Urine Negative (Negative); Blood Urine Negative (Negative); Color Urine Yellow (Yellow); Glucose Urine UA Negative (Negative); Ketones Urine Negative (Negative); Leukocyte Esterase Ur Trace LEU/UL (Negative); Nitrate Urine Negative (Negative); Non Pathogenic Casts 0-2; Protein Urine Negative (Negative); RBC Urine 0-2 /hpf (0-2); Squamous Epithelial Cell Urine Few /hpf (Few)
[2023-05-12 07:55] LABS: Add Urine Microscopic? YES
[2023-05-12 08:00] VITALS: BP 118/74; PULSE 76; RESP 16; TEMP 36.4; O2SAT 100
[2023-05-12] MEDS: SODIUM CHLORIDE 0.9% IV 1,000 ML 999 ML IV CONT (08:09)
[2023-05-12 09:00] VITALS: BP 116/68; PULSE 72; RESP 16; TEMP 36.6; O2SAT 99
== END 2023-05-12 09:50 | disposition home or self-care (01) ==
PROVIDERS: Emergency Medicine; Emergency Provider Emergency Medicine
DX: M54.50 Low back pain, unspecified (principal); F17.290 Nicotine dependence, other tobacco product, uncomplicated
CPT/HCPCS: 36415; 74177; 80053; 81001; 81025; 83690; 85025; 87086; 96360; 99284; J7030; Q9967

== ENCOUNTER 2023-08-27 16:15 | Emergency (ER) | payer BC, SELFPAY ==
[2023-08-27 16:16] VITALS: BP 133/96; PULSE 107; RESP 19; TEMP 36.9; O2SAT 99
--- NOTE | 2023-08-27 16:29 | ED.DENTAL ---
HPI - Dental/Oral General Chief complaint: Dental/Oral Stated complaint: mouth irritation Time Seen by Provider: 08/27/23 16:21 Source: patient Mode of arrival: ambulatory Limitations: no limitations History of Present Illness HPI Narrative: this is a 23-year-old female with a recent dental work and currently having tender and swollen submandibular glands with some gum inflammation and swelling with some pain with swallowing, currently no arch no fever chills, there is some nausea with no vomiting no headache no abdominal pain no chest pain no shortness of breath Complaint: tooth pain Onset (ago): day(s) Duration: constant Severity: moderate Relieving factors: nothing Exacerbating factors: nothing Context: other Associated symptoms: pain with swallowing Treatment prior to arrival: none Related Data Allergies Allergy/AdvReac Type Severity Reaction Status Date / Time No Known Allergies Allergy Mild Verified 08/27/23 16:19 Review of Systems Review of Systems: All systems reviewed & are unremarkable except as noted in HPI and below PMFSH Past Medical History Medical History Congenital karhaf-avlenns-uwwad reflux History of strep sore throat Surgical History Surgical History S/P tonsillectomy and adenoidectomy Family History Family History Father Hypertension Heart disease Mother Asthma Social History Social History Tobacco type: e-cigarettes/vaping Alcohol intake: never Substance use: never Living arrangements: with family Gender identity (if verbalized by the patient): Female Exam Const: General: healthy appearing and no acute distress HENMT: Other: has dental pain with some gum inflammation and swelling with tender swollen submandibular glands bilaterally Chest: Chest palpation & inspection: normal inspection of the chest Resp: Effort & Inspection: normal respiratory effort Auscultation: clear to auscultation bilaterally Cardio: Rate: regular rate Rhythm: regular rhythm GI: GI Palp: Yes Soft to palpation Course Course Emergency Course: patient received a dose of Augmentin, viscous lidocaine, patient is afebrile has tender submandibular glands advised patient to take Tylenol or Motrin along with prescribed medication. Vital Signs Vital signs: Vital Signs Temperature 36.9 C 08/27/23 16:16 Pulse Rate 107 H 08/27/23 16:16 Respiratory Rate 19 08/27/23 16:16 Blood Pressure 133/96 H 08/27/23 16:16 Pulse Oximetry 99 08/27/23 16:16 Oxygen Delivery Room Air 08/27/23 16:16 Temperature 36.9 C 08/27/23 16:16 Pulse Rate 107 H 08/27/23 16:16 Respiratory Rate 19 08/27/23 16:16 Blood Pressure 133/96 H 08/27/23 16:16 Pulse Oximetry 99 08/27/23 16:16 Oxygen Delivery Room Air 08/27/23 16:16 Critical Care Time Critical Care Time Critical Care Time: No Discharge Plan Discharge Clinical Impression: Dental abscess Patient Disposition: Home, Self-Care Condition: Stable Instructions: Antibiotic Form, Dental Abscess (ED) Additional Instructions: Advised take medicine as prescribed and follow-up with Primary/dentist within 1 to 2 weeks for further evaluation and treatment. can also take Tylenol or Motrin for pain and inflammation. Prescriptions: New lidocaine HCl [Lidocaine Viscous] 2 % solution 1 applic mucous membrane QID PRN (Reason: pain) 5 Days Qty: 100 0RF amoxicillin-pot clavulanate [Augmentin] 500-125 mg tablet 1 tablet PO TID Qty: 30 0RF ondansetron 4 mg tablet,disintegrating 4 mg PO Q6H PRN (Reason: nausea and vomiting) Qty: 14 0RF Follow-up/Referrals: PHYSICIAN,NURSE EXECUTIVE [Primary Care Provider] - Stand Alone Forms: Work/School Release IP Time of Disposition: 16:33
[2023-08-27] MEDS: LIDOCAINE HCL 2% VISC SOLN 15 ML UDC PO (16:33)
[2023-08-27] MEDS: AMOXICILLIN/CLAVULANATE K 875-125 MG TAB 1 TABLET PO (16:33)
--- NOTE | 2023-08-27 16:36 | PC.NURSE ---
On 08/27/23, the student, [sukh [email or web address] ], provided care and completed [facility] documentation on this patient. I have reviewed the student's documentation and agree with the findings.
[2023-08-27 17:02] VITALS: BP 124/85; PULSE 99; RESP 18; TEMP 36.8; O2SAT 98
== END 2023-08-27 17:07 | disposition home or self-care (01) ==
PROVIDERS: Emergency Provider Emergency Medicine
DX: K04.7 Periapical abscess without sinus (principal); F17.290 Nicotine dependence, other tobacco product, uncomplicated
CPT/HCPCS: 99283; A9270

== ENCOUNTER 2023-08-30 17:59 | Emergency (ER) | payer BC, SELFPAY ==
[2023-08-30 18:04] VITALS: BP 144/98; PULSE 129; RESP 18; TEMP 36.4; O2SAT 99
[2023-08-30 20:05] VITALS: BP 130/90; PULSE 72; RESP 15; TEMP 36.3; O2SAT 100
--- NOTE | 2023-08-30 20:06 | PC.NURSE ---
Patient states she has been on Amoxicillin PO, but she is not able to keep anything down. Patient states if possible she would like IV antibiotics or the liquid form.
[2023-08-30] MEDS: ONDANSETRON HCL ODT 4 MG TABLET PO (21:39)
--- NOTE | 2023-08-30 21:46 | PC.NURSE ---
Patient was given magic mouth wash and instructed to swish and spit.
--- NOTE | 2023-08-30 22:37 | ED.DENTAL ---
HPI - Dental/Oral General Chief complaint: Dental/Oral Stated complaint: mouth infection Time Seen by Provider: 08/30/23 20:11 History of Present Illness HPI Narrative: Patient had a tooth extracted at the dentist this week. She developed ulcers throughout the entire side of her mouth and lips. She has been unable to drink or eat anything due to the pain. She was given liquid lidocaine every time she tries she throws up. She cannot talk due to the swelling and pain. She appears very uncomfortable. Her friend contribute to the history for her. She is also having chest discomfort Related Data Allergies Allergy/AdvReac Type Severity Reaction Status Date / Time No Known Allergies Allergy Mild Verified 08/27/23 16:19 Review of Systems Review of Systems: Additional review of systems negative except for what is documented in the [facility] Past Medical History Medical History Congenital svklmr-abrnluw-muamj reflux History of strep sore throat Surgical History Surgical History S/P tonsillectomy and adenoidectomy Family History Family History Father Hypertension Heart disease Mother Asthma Social History Social History Tobacco type: e-cigarettes/vaping Alcohol intake: never Substance use: never Living arrangements: with family Gender identity (if verbalized by the patient): Female Exam Narrative: GENERAL: Well-appearing, uncomfortable HEAD: Normocephalic, atraumatic. EYES: PERRLA and EOMI. ENT: Nares clear, no rhinorrhea or epistaxis. Severe ulcers with yellow patches on lips and throughout mouth NECK: Supple. CHEST: Clear to auscultation. No respiratory distress. HEART: Tachycardic ABDOMEN: Soft, nontender, nondistended. EXTREMITIES: Normal range of motion. No edema. SKIN: Warm, dry, no rash. NEURO: No focal deficits. Alert and oriented x3. PSYCH: Normal mood and affect. Course Vital Signs Vital signs: Vital Signs Temperature 36.4 C L 08/30/23 18:04 Pulse Rate 129 H 08/30/23 18:04 Respiratory Rate 18 08/30/23 18:04 Blood Pressure 144/98 H 08/30/23 18:04 Pulse Oximetry 99 08/30/23 18:04 Temperature 36.3 C L 08/30/23 20:05 Pulse Rate 72 08/30/23 20:05 Respiratory Rate 15 08/30/23 20:05 Blood Pressure 130/90 08/30/23 20:05 Pulse Oximetry 100 08/30/23 20:05 MDM - Dental/Oral MDM Narrative Medical decision making narrative: The patient initially gargled Magic mouthwash then was able to take p.o. Zofran. She has now swallowed Magic mouthwash and is eating pudding. Overall feeling much better although still discomfort present. Concern for chest discomfort with mouth lesions. Will DC with clinda for infection. Also Vicodin for pain and Magic mouthwash as needed Discharge Plan Discharge Clinical Impression: Other oral mucositis (ulcerative) Patient Disposition: Home, Self-Care Condition: Stable Instructions: Gingivostomatitis (ED) Prescriptions: New Magic Mouthwash (Dr. Garber) 120 mL suspension 5 ml PO Q4-6H Qty: 120 0RF Rx Instructions: diphenhydramine 12.5 mg/5 mL oral elixir 40 mL; Lidocaine Viscous 2 % mucosal solution 40 mL; Maalox 200 mg-200 mg-20 mg/5 mL oral suspension 40 mL; Per 120 mL hydrocodone-acetaminophen 7.5-325 mg/15 mL solution 10 ml PO Q6H PRN (Reason: pain) Qty: 200 0RF clindamycin HCl 300 mg capsule 300 mg PO Q8H Qty: 20 0RF ondansetron 4 mg tablet,disintegrating 4 mg PO Q8H PRN (Reason: nausea and vomiting) Qty: 20 0RF No Action lidocaine HCl [Lidocaine Viscous] 2 % solution 1 applic mucous membrane QID PRN (Reason: pain) 5 Days Qty: 100 0RF amoxicillin-pot clavulanate [Augmentin] 500-125 mg tablet 1 tablet PO TID Qty: 30 0RF ondansetron
[2023-08-31] MEDS: CLINDAMYCIN HCL 150 MG CAP 300 MG PO
== END 2023-08-31 00:26 | disposition home or self-care (01) ==
PROVIDERS: Emergency Provider Emergency Medicine
DX: K12.39 Other oral mucositis (ulcerative) (principal); F17.290 Nicotine dependence, other tobacco product, uncomplicated
CPT/HCPCS: 99283; A9270

== ENCOUNTER 2024-01-22 19:50 | Emergency (ER) | payer BC, SELFPAY ==
[2024-01-22 19:52] VITALS: BP 140/73; PULSE 109; RESP 14; TEMP 36.2; O2SAT 100
[2024-01-22 20:26] LABS: Basophils Percent Auto 0.1 % (0.2-1.2); Eosinophils Absolute Auto 0.1 K/mm3 (0-0.3); Eosinophils Percent Auto 0.8 % (0-4.4); Hemoglobin 10.7 g/dL (12.0-15.0); Immature Granulocyte Absolute 0.02 K/mm3 (0.00-0.031); Immature Granulocyte Percent A 0.2 % (0-0.5); Lymphocytes Absolute Auto 1.25 K/mm3 (0.9-3.2); Lymphocytes Percent Auto 12.9 % (18.3-44.2); Mean Corpuscular HGB Conc 31.5 g/dl (32-36); Mean Corpuscular Hemoglobin 23.7 pg (26-34); Mean Corpuscular Volume 75.4 fl (80-100); Mean Platelet Volume 11.3 fl (7.4-10.4); Monocytes Absolute Auto 0.6 K/mm3 (0.1-0.6); Monocytes Percent Auto 5.7 % (2.6-8.5); Neutrophils Absolute Auto 7.8 K/mm3 (1.3-6.7); Neutrophils Percent Auto 80.3 % (45.5-73.1); Platelet Count Result 293 k/mm3 (150-375); Red Blood Count 4.51 M/mm3 (4.2-5.4); Red Cell Distribution Width 16.4 % (11.5-14.5); White Blood Count 9.7 K/mm3 (4.5-10.0)
[2024-01-22 20:36] LABS: Alanine Aminotransferase 20 U/L (6-35); Albumin Level 4.5 g/dL (3.5-5.1); Alkaline Phosphatase 48 U/L (38-126); Anion Gap 7 mmol/L (4-12); Aspartate Amino Transferase 29 U/L (14-36); Bilirubin,Total 0.4 mg/dL (0.2-1.3); Blood Urea Nitrogen 7 mg/dL (7-17); Calcium 9.7 mg/dL (8.4-10.2); Carbon Dioxide 24 mmol/L (22-30); Chloride 106 mmol/L (98-107); Estimated CRCL calculation 138 ml/min; Estimated Glomerular Filt Rate > 60; Glucose 103 mg/dL (65-110); Potassium 3.6 mmol/L (3.4-5.0); Sodium 137 mmol/L (137-145)
[2024-01-22 20:48] LABS: Appearance Urine Clear (Clear); Bacteria Urine 3+ /hpf; Bilirubin Urine Negative (Negative); Blood Urine Negative (Negative); Color Urine Yellow (Yellow); Glucose Urine UA Negative (Negative); Ketones Urine 2+ mg/dL (Negative); Leukocyte Esterase Ur 1+ LEU/UL (Negative); Nitrate Urine Negative (Negative); Non Pathogenic Casts 0-2; Protein Urine Trace mg/dL (Negative); RBC Urine 0-2 /hpf (0-2); Specific Grav Ur 1.022 (1.001-1.035); Squamous Epithelial Cell Urine Few /hpf (Few); WBC Urine 51-100 /hpf (0-3)
[2024-01-22 20:50] LABS: Add Urine Microscopic? YES
[2024-01-22 22:09] VITALS: PULSE 96; RESP 14; O2SAT 99
[2024-01-22 22:45] VITALS: BP 127/59; PULSE 102; RESP 18; O2SAT 100
--- NOTE | 2024-01-22 22:56 | ED.GENADULT ---
HPI - General Adult General Chief complaint: Back Pain/Injury Stated complaint: Lower back pain, 12 weeks preg Time Seen by Provider: 01/22/24 22:19 History of Present Illness HPI narrative: Patient 23-year-old female presents emergency department chief complaint of back pain. The patient reports that she is approximately 12 weeks and sees her 1st patient reports he has prior history of ureteral reflux through the reasons had kidney infections before in the past patient denies fever but does report that she has aching in her back similar to whenever she has had a strain and also had infection in the past. Patient denies discharge denies vomiting reports that she has been taking Tylenol without relief of the pain. Related Data Allergies Allergy/AdvReac Type Severity Reaction Status Date / Time No Known Allergies Allergy Mild Verified 01/22/24 22:09 Review of Systems Review of Systems: A 10 system review of systems was completed on the patient and is negative except for what is stated in the HPI. Nursing and ancillary documentation was reviewed. [facility] Past Medical History Medical History Congenital mbfloq-jwtawjp-arkar reflux History of strep sore throat Surgical History Surgical History S/P tonsillectomy and adenoidectomy Family History Family History Father Hypertension Heart disease Mother Asthma Social History Social History Tobacco type: e-cigarettes/vaping Alcohol intake: never Substance use: never Living arrangements: with family Gender identity (if verbalized by the patient): Female Exam Narrative: GENERAL: Well-appearing, well-nourished, and in no acute distress. HEAD: Normocephalic, atraumatic. EYES: PERRLA and EOMI. ENT: Nares clear, no rhinorrhea or epistaxis. Mucous membranes moist. NECK: Supple. CHEST: Clear to auscultation. No respiratory distress. HEART: Regular rate and rhythm. No murmur heard. Normal peripheral pulses. ABDOMEN: Soft, nontender, nondistended, normal active bowel sounds. Back: Bilateral CVA tenderness EXTREMITIES: Normal range of motion. No edema. SKIN: Warm, dry, no rash. NEURO: No focal deficits. Alert and oriented x3. PSYCH: Normal mood and affect. Course Vital Signs Vital signs: Vital Signs Temperature 36.2 C L 01/22/24 19:52 Pulse Rate 109 H 01/22/24 19:52 Respiratory Rate 14 01/22/24 19:52 Blood Pressure 140/73 01/22/24 19:52 Pulse Oximetry 100 01/22/24 19:52 Oxygen Delivery Room Air 01/22/24 19:52 Temperature 36.2 C L 01/22/24 19:52 Pulse Rate 94 01/23/24 00:28 Respiratory Rate 14 01/23/24 00:28 Blood Pressure 115/75 01/23/24 00:28 Pulse Oximetry 98 01/23/24 00:28 Oxygen Delivery Room Air 01/22/24 19:52 Medical Decision Making MDM Narrative Medical decision making narrative: Differential diagnosis includes pyelonephritis, UTI, kidney stone, Bedside ultrasound was performed by me and showed a intrauterine with good cardiac activity good movement. Laboratory studies were obtained the patient showed a normal CBC white count 9.7 electrolytes showed a creatinine of 0.4 and BUN of 7 liver enzymes are within normal limits urinalysis showed 2+ ketones 1+ leukocyte esterase and 51-100 white blood cells in the urine with 3+ bacteria. Patient was given a g Rocephin in the emergency department urine culture has been sent the patient was also given a L normal saline. The patient will be started on Keflex and a t.i.d. dosing and patient should follow-up with her OBGYN. Vital Signs Vital Signs: Vital Signs Temperature 36.2 C L 01/22/24 19:52 Pulse Rate 109 H 01/22/24 19:52 Respiratory Rate 14 01/22/24
[2024-01-22] MEDS: SODIUM CHLORIDE 0.9% IV 1,000 ML 999 ML IV CONT (23:15)
[2024-01-23 00:28] VITALS: BP 115/75; PULSE 94; RESP 14; O2SAT 98
== END 2024-01-23 00:44 | disposition home or self-care (01) ==
PROVIDERS: Emergency Provider Emergency Medicine; Referring Provider Family Medicine
DX: O23.41 Unspecified infection of urinary tract in pregnancy, first trimester (principal); N39.0 Urinary tract infection, site not specified; O26.891 Other specified pregnancy related conditions, first trimester; R10.9 Unspecified abdominal pain; O99.891 Other specified diseases and conditions complicating pregnancy; Q62.7 Congenital vesico-uretero-renal reflux; O99.331 Smoking (tobacco) complicating pregnancy, first trimester; F17.290 Nicotine dependence, other tobacco product, uncomplicated; Z3A.12 12 weeks gestation of pregnancy
CPT/HCPCS: 36415; 80053; 81001; 81025; 85025; 87077; 87086; 87186; 96365; 99284; J0696; J7030

== ENCOUNTER 2024-04-16 14:16 | Observation (INO) | payer BC, SELFPAY ==
[2024-04-16] VITALS (11 sets, daily range): BP systolic 109–131; BP diastolic 59–97; PULSE 67–103; TEMP 36.9; BMI 22.8
[2024-04-16 14:38] LABS: Appearance Urine Cloudy (Clear); Bacteria Urine 1+ /hpf; Bilirubin Urine Negative (Negative); Blood Urine Negative (Negative); Color Urine Yellow (Yellow); Glucose Urine UA Negative (Negative); Ketones Urine Negative (Negative); Leukocyte Esterase Ur Trace LEU/UL (Negative); Need Manual Microscopic Reviewed; Nitrate Urine Negative (Negative); Non Pathogenic Casts 0-2; Protein Urine 2+ mg/dL (Negative); RBC Urine 21-50 /hpf (0-2); Specific Grav Ur 1.019 (1.001-1.035); Squamous Epithelial Cell Urine Few /hpf (Few); Urobilinogen Urine 0.2 mg/dL (<2.0); WBC Urine 21-50 /hpf (0-3); pH Urine 6.5 (5.0-9.0)
[2024-04-16 14:39] LABS: Add Urine Microscopic? YES
[2024-04-16] MEDS: LACTATED RINGERS 500 ML 999 ML IV CONT (15:15)
--- NOTE | 2024-04-16 15:21 | OBADM ---
This patient, Carline Marti, admitted to the OB room OB Post [facility] for observation. Patient/family oriented to hospital policies and general routines including ID bracelet, bed and alarms, visiting hours, pain management, procedures, bathroom and other care routines, personal items, smoking policy, room service/diet, and visiting hours. Patient/Family are encouraged to report perceived risks to care and to ask questions if they do not understand what they are told or what they should do.
--- NOTE | 2024-04-16 16:31 | PC.NURSE ---
1630: RN phoned Dr. Bowie to inform OB of patient's pain of 7 out of 10, IV fluids are finished, and vital signs. Orders to discharge patient home with an order fro Keflex 500 mg 4 times daily for 5 days. Orders to stop the Cefalexin until the Keflex is finished, then restart the Cefalexin.
--- NOTE | 2024-04-19 10:48 | P.PNOB_ITS ---
OB - Triage/Final Diagnosis Visit Information Comments/Additional reasons for admission: I have assessed the risk for this patient, Carline Marti, and determined that she would benefit from observation care. Evaluation Laboratory results: Laboratory Tests 04/16/24 14:19 Urine Color Yellow Urine Appearance Cloudy H Urine pH 6.5 Ur Specific [place] 1.019 Urine Protein 2+ H Urine Glucose (UA) Negative Urine Ketones Negative Ur Blood (Man) Negative Urine Nitrate Negative Urine Bilirubin Negative Urine Urobilinogen 0.2 Add Ur Microanalysis Reviewed Leukocyte Esterase Rfl Trace H Urine RBC 21-50 H Urine WBC 21-50 H Ur Squamous Epith Cells Few Urine Bacteria 1+ H Urine Casts 0-2 Final Diagnosis (1) Back pain affecting : Code(s): O99.891 - Other specified diseases and conditions complicating ; M54.9 - Dorsalgia, unspecified Status: Acute
== END 2024-04-16 17:00 | disposition home or self-care (01) ==
PROVIDERS: Admitting Provider Obstetrics & Gynecology; PCP Nurse Practitioner Family; Visit Provider Obstetrics & Gynecology
DX: O99.891 Other specified diseases and conditions complicating pregnancy (principal); M54.9 Dorsalgia, unspecified; Z3A.24 24 weeks gestation of pregnancy
CPT/HCPCS: 59025; 81001; 87077; 87086; 87088; G0378; G0379; J7120

== ENCOUNTER 2024-04-27 12:50 | Outpatient (CLI) | payer BC, SELFPAY ==
--- NOTE | 2024-04-27 | ECHO_ITS ---
Patient Info Name: Carline Marti Age: 24 years : 2000 Gender: Female Ht: 61 in Wt: 121 lbs BSA: 1.54 m2 HR: 94 bpm BP: 130 / 99 mmHg Heart Rhythm: Sinus Rhythm Technical Quality: Good Exam Date: 04/27/2024 1:09 PM Exam Location: Echo Lab Patient Status: Outpatient Admit Date: 04/27/2024 Staff Ordering Physician: Rajinder Bowie MD Event Marketing Coordinator: Guadalupe Esteban RDCS Attending Provider: Rajinder Bowie MD Referring Physician: Jamir SMITH; Exam Type: CA echo doppler color flow Study Info Indications - fm hx heart disease Complete two-dimensional, color flow and Doppler transthoracic echocardiogram is performed. Summary 1. Complete two-dimensional, color flow and Doppler transthoracic echocardiogram is performed. 2. Left ventricular chamber dimension is normal. 3. Left ventricular systolic function is normal, estimated at 65-70%. 4. The left ventricular diastolic function is normal. 5. E/e' 5 is not elevated. 6. No pulmonary hypertension, estimated pulmonary arterial systolic pressure is 21 mmHg. Left Ventricle E/e' 5 is not elevated. Left ventricular chamber dimension is normal. Left ventricular systolic function is normal, estimated at 65-70%. The left ventricular diastolic function is normal. Right Ventricle Right ventricular systolic function is normal and with normal TAPSE 2.1 cm. Right ventricular chamber dimension is normal. Left Atria Left atrial chamber dimension is normal. Right Atria Right atrial chamber dimension is normal. Aortic Valve The aortic valve is trileaflet. There is no aortic valve stenosis. There is no aortic valve regurgitation. Pulmonic Valve There is no pulmonic regurgitation. Mitral Valve There is no mitral valve stenosis. There is no mitral valve regurgitation. Tricuspid Valve There is no tricuspid valve regurgitation. No pulmonary hypertension, estimated pulmonary arterial systolic pressure is 21 mmHg. Pericardium/Pleural There is no pericardial effusion. Inferior Vena Cava Normal inferior vena cava with >50% collapse upon inspiration consistent with normal right atrial pressure, 5 mmHg. Aorta The aortic root size at the sinus of Valsalva is normal. Left Ventricular Outflow Tract Name Value Normal LVOT 2D LVOT Diameter 2.0 cm LVOT Doppler LVOT Peak Gradient 5 mmHg LVOT Mean Gradient 3 mmHg LVOT VTI 17 cm LVOT VTI/AV VTI Ratio 0.9 LVOT Stroke Volume 55 ml LVOT CO 4.6 l/min LVOT CI 3.0 l/min/m2 Pulmonic Valve Name Value Normal RVOT Doppler RVOT Peak Gradient 2 mmHg PV Doppler PV Peak Gradient 3 mmHg Mitral Valve
== END 2024-04-27 12:51 | disposition home or self-care (01) ==
LOC: ANHCARD 12:52
PROVIDERS: PCP Nurse Practitioner Family; Visit Provider Obstetrics & Gynecology
DX: Z82.49 Family history of ischemic heart disease and other diseases of the circulatory system (principal)
CPT/HCPCS: 93306

== ENCOUNTER 2024-05-08 11:56 | Outpatient (CLI) | payer BC, SELFPAY ==
[2024-05-08] VITALS (8 sets, daily range): BP systolic 125–135; BP diastolic 61–95; PULSE 63–94; BMI 22.5
--- NOTE | 2024-05-08 12:30 | PC.NURSE ---
Dr. Bowie on unit and informed of this pt at 27 wks sent over from [facility] after having a non-reactive NST and BPP 6/8 in the office. Pt has had elevated BP's and IUGR.
[2024-05-08 12:57] LABS: Appearance Urine Clear (Clear); Bacteria Urine None Seen /hpf; Bilirubin Urine Negative (Negative); Blood Urine Negative (Negative); Color Urine Yellow (Yellow); Glucose Urine UA Negative (Negative); Ketones Urine Negative (Negative); Leukocyte Esterase Ur 1+ LEU/UL (Negative); Nitrate Urine Negative (Negative); Non Pathogenic Casts 0-2; Protein Urine Negative (Negative); RBC Urine 0-2 /hpf (0-2); Specific Grav Ur 1.011 (1.001-1.035); Squamous Epithelial Cell Urine Moderate /hpf (Few); Urobilinogen Urine 0.2 mg/dL (<2.0)
[2024-05-08 12:58] LABS: Creatinine Urine 82.3 mg/dL
[2024-05-08 12:58] LABS: Basophils Percent Auto 0.2 % (0.2-1.2); Eosinophils Percent Auto 0.2 % (0-4.4); Hematocrit 34.8 % (37.0-47.0); Hemoglobin 11.7 g/dL (12.0-15.0); Immature Granulocyte Absolute 0.01 K/mm3 (0.00-0.031); Immature Granulocyte Percent A 0.1 % (0-0.5); Lymphocytes Absolute Auto 1.36 K/mm3 (0.9-3.2); Lymphocytes Percent Auto 16.6 % (18.3-44.2); Mean Corpuscular HGB Conc 33.6 g/dl (32-36); Mean Corpuscular Hemoglobin 28.6 pg (26-34); Mean Corpuscular Volume 85.1 fl (80-100); Mean Platelet Volume 11.2 fl (7.4-10.4); Monocytes Absolute Auto 0.7 K/mm3 (0.1-0.6); Monocytes Percent Auto 8.7 % (2.6-8.5); Neutrophils Absolute Auto 6.1 K/mm3 (1.3-6.7); Neutrophils Percent Auto 74.2 % (45.5-73.1); Platelet Count Result 245 k/mm3 (150-375); Red Blood Count 4.09 M/mm3 (4.2-5.4); Red Cell Distribution Width 14.4 % (11.5-14.5); White Blood Count 8.2 K/mm3 (4.5-10.0)
[2024-05-08 13:02] LABS: Total Protein Urine Random < 5 mg/dL; Ur Ttl Prot Creatinine Ratio < 0.06 mg/mg (0-0.20)
[2024-05-08 13:02] LABS: Alanine Aminotransferase 17 U/L (6-35); Albumin Level 3.6 g/dL (3.5-5.1); Alkaline Phosphatase 74 U/L (38-126); Anion Gap 9 mmol/L (4-12); Aspartate Amino Transferase 25 U/L (14-36); Bilirubin,Total 0.3 mg/dL (0.2-1.3); Blood Urea Nitrogen 5 mg/dL (7-17); Calcium 8.9 mg/dL (8.4-10.2); Carbon Dioxide 21 mmol/L (22-30); Chloride 105 mmol/L (98-107); Estimated Glomerular Filt Rate > 60; Glucose 74 mg/dL (65-110); Sodium 135 mmol/L (137-145); Uric Acid 3.4 mg/dL (2.5-7.5)
[2024-05-08 13:14] LABS: Add Urine Microscopic? YES
--- NOTE | 2024-05-08 13:51 | PC.NURSE ---
Dr. Bowie reviewed FHR tracing from office- reactive with 10 beat accels and no signs of any decelerations. Informed of BP's and lab results. OK to discharge to home and keep scheduled appointments.
== END 2024-05-08 13:55 | disposition home or self-care (01) ==
LOC: ANHOBOP 12:03 → ANHOBPP 12:12
PROVIDERS: Visit Provider Obstetrics & Gynecology
DX: O13.9 Gestational [pregnancy-induced] hypertension without significant proteinuria, unspecified trimester (principal); Z3A.00 Weeks of gestation of pregnancy not specified
CPT/HCPCS: 36415; 59025; 80053; 81001; 82570; 84156; 84550; 85025; 87086; 99199

== ENCOUNTER 2024-05-21 14:19 | Outpatient (CLI) | payer BC, SELFPAY ==
[2024-05-21] VITALS (16 sets, daily range): BP systolic 134–147; BP diastolic 71–101; PULSE 90–112; O2SAT 97–100
[2024-05-21 14:55] LABS: Basophils Percent Auto 0.1 % (0.2-1.2); Eosinophils Percent Auto 0.1 % (0-4.4); Hematocrit 35.2 % (37.0-47.0); Hemoglobin 12.1 g/dL (12.0-15.0); Immature Granulocyte Absolute 0.02 K/mm3 (0.00-0.031); Immature Granulocyte Percent A 0.3 % (0-0.5); Lymphocytes Absolute Auto 1.09 K/mm3 (0.9-3.2); Lymphocytes Percent Auto 13.7 % (18.3-44.2); Mean Corpuscular HGB Conc 34.4 g/dl (32-36); Mean Corpuscular Hemoglobin 29.2 pg (26-34); Mean Platelet Volume 11.2 fl (7.4-10.4); Monocytes Absolute Auto 0.8 K/mm3 (0.1-0.6); Monocytes Percent Auto 10.5 % (2.6-8.5); Neutrophils Percent Auto 75.3 % (45.5-73.1); Platelet Count Result 255 k/mm3 (150-375); Red Blood Count 4.14 M/mm3 (4.2-5.4)
[2024-05-21 14:59] LABS: Add Urine Microscopic? YES; Appearance Urine Clear (Clear); Bacteria Urine None Seen /hpf; Bilirubin Urine Negative (Negative); Blood Urine Negative (Negative); Color Urine Yellow (Yellow); Glucose Urine UA Negative (Negative); Ketones Urine Negative (Negative); Leukocyte Esterase Ur 2+ LEU/UL (Negative); Nitrate Urine Negative (Negative); Non Pathogenic Casts 0-2; Protein Urine Negative (Negative); RBC Urine 0-2 /hpf (0-2); Specific Grav Ur 1.009 (1.001-1.035); Squamous Epithelial Cell Urine Occasional /hpf (Few); Urobilinogen Urine 0.2 mg/dL (<2.0); WBC Urine 21-50 /hpf (0-3); pH Urine 6.5 (5.0-9.0)
[2024-05-21 15:02] LABS: Creatinine Urine 79.2 mg/dL; Total Protein Urine Random 18 mg/dL; Ur Ttl Prot Creatinine Ratio 0.23 mg/mg (0-0.20)
[2024-05-21 16:06] LABS: Anion Gap 9 mmol/L (4-12); Aspartate Amino Transferase 29 U/L (14-36); Bilirubin,Total 0.3 mg/dL (0.2-1.3); Blood Urea Nitrogen 7 mg/dL (7-17); Carbon Dioxide 21 mmol/L (22-30); Chloride 104 mmol/L (98-107); Estimated Glomerular Filt Rate > 60; Glucose 58 mg/dL (65-110); Potassium 3.6 mmol/L (3.4-5.0); Sodium 134 mmol/L (137-145); Uric Acid 4.2 mg/dL (2.5-7.5)
[2024-05-21 16:07] LABS: Alanine Aminotransferase 23 U/L (6-35); Albumin Level 3.8 g/dL (3.5-5.1); Alkaline Phosphatase 90 U/L (38-126)
== END 2024-05-21 16:35 | disposition home or self-care (01) ==
LOC: ANHOBOP 14:26 → ANHLDR 14:30
PROVIDERS: Visit Provider Obstetrics & Gynecology
DX: O13.9 Gestational [pregnancy-induced] hypertension without significant proteinuria, unspecified trimester (principal); Z3A.00 Weeks of gestation of pregnancy not specified
CPT/HCPCS: 36415; 59025; 80053; 81001; 81050; 82570; 82575; 84156; 84550; 85025; 87086; 87088; 99199

== ENCOUNTER 2024-05-22 19:32 | Outpatient (NON) | payer BC, SELFPAY ==
[2024-05-22 20:16] VITALS: BMI 22.6
[2024-05-22 21:34] LABS: Collection Time Urine 24 HOURS; Total Volume 24 Hour Urine 575 ml
[2024-05-22 21:45] LABS: Total Protein Urine 24 Hr 74 mg/24hr (28-141); Total Protein Urine Random 13 mg/dL
[2024-05-22 22:00] LABS: Patient Weight 120 Lbs
[2024-05-22 22:16] LABS: Total Volume 24 Hour Urine 575 ml
== END 2024-05-22 19:33 | disposition home or self-care (01) ==
LOC: ANHOBOP 19:41
PROVIDERS: Visit Provider Obstetrics & Gynecology
DX: Z34.90 Encounter for supervision of normal pregnancy, unspecified, unspecified trimester (principal); Z3A.00 Weeks of gestation of pregnancy not specified
CPT/HCPCS: 81050; 82575; 84156

== ENCOUNTER 2024-06-06 17:09 | Emergency (ER) | payer BC, MEDICAID, SELFPAY ==
--- NOTE | 2024-06-06 17:13 | ED.ABDPAIN ---
HPI - Abdominal Pain General Chief Complaint: Wound/Laceration Stated Complaint: INCISION ISSUE Time Seen by Provider: 06/06/24 17:13 Source: patient Mode of arrival: ambulatory Limitations: no limitations History of Present Illness HPI narrative: 24-year-old female 6 days , status post for preeclampsia delivered healthy baby 10 weeks premature who is currently in NICU presents to the ED with -- redness around the supraumbilical incision. No fever or chills. No purulent discharge. No abdominal pain -- patient is hypertensive and is on hydralazine and Procardia. -- Patient was severely anemic and received 1 unit of packed red blood cells perioperatively. Patient denied headache. No focal neuro deficits. No nausea/ vomiting/ Diarrhea no urinary incontinence. Related Data Home Medications Medication Instructions Recorded Confirmed hydralazine 25 mg tablet 25 mg PO QID 06/06/24 06/06/24 nifedipine 30 mg tablet,extended 30 mg PO DAILY 06/06/24 06/06/24 release 24 hr (Procardia XL) Allergies Allergy/AdvReac Type Severity Reaction Status Date / Time No Known Allergies Allergy Mild Verified 06/06/24 17:25 [facility] Past Medical History Medical History Congenital buskyf-qzrogdt-fciql reflux History of strep sore throat Surgical History Surgical History S/P tonsillectomy and adenoidectomy Family History Family History Father Hypertension Heart disease Mother Asthma Social History Social History Tobacco type: e-cigarettes/vaping Alcohol intake: never Substance use: never Living arrangements: with family Gender identity (if verbalized by the patient): Female Course Course Emergency Course: wound infection-- patient is afebrile. Wound looks healthy. Anemia of -- patient is noted to have an H&H of 9.4/28.1 Vital Signs Vital signs: Vital Signs Temperature 36.7 C 06/06/24 17:16 Pulse Rate 127 H 06/06/24 17:16 Respiratory Rate 18 08/21/24 17:16 Blood Pressure 139/94 H 06/06/24 17:16 Pulse Oximetry 98 06/06/24 17:16 Oxygen Delivery Room Air 06/06/24 17:16 Temperature 36.7 C 06/06/24 17:16 Pulse Rate 127 H 06/06/24 17:16 Respiratory Rate 18 06/06/24 17:16 Blood Pressure 139/94 H 06/06/24 17:16 Pulse Oximetry 98 06/06/24 17:16 Oxygen Delivery Room Air 06/06/24 17:16 MDM - Abdominal Pain MDM Narrative Medical decision making narrative: anemia of abdominal wound pain preeclampsia-- patient continues to be on hydralazine and Procardia XL. The patient had normal blood counts with normal platelets, normal creatinine, normal liver chemistries and insignificant proteinuria. Differential Diagnosis Differential diagnosis: Likely endometriosis Lab Data Attestation: I reviewed the patient's lab results. 06/06/24 17:39 06/06/24 17:39 Labs: Lab Results 06/06/24 06/06/24 Range/Units 17:29 17:39 WBC 13.7 H (4.8-10.8) K/mm3 RBC 3.19 L (4.20-5.40) M/mm3 Hgb 9.4 L (12.0-15.0) g/dL Hct 28.1 L (35.0-49.0) % MCV 88.1 (78.0-102.0) fL MCH 29.5 (27.0-31.0) pg MCHC 33.5 (32-36) g/dL RDW 14.3 (11.6-14.4) % Plt Count 279 (150-420) K/mm3 MPV 9.1 L (9.2-11.8) fl Immature Gran % (Auto) 0.7 H (0.0-0.0) % Neut % (Auto) 82.8 H (50.0-70.0) % Lymph % (Auto) 8.8 L (18.0-42.0) % [place] % (Auto) 7.2 (2.0-11.0) % Eos % (Auto) 0.3 L (1.0-6.0) % Baso % (Auto) 0.2 (0.0-1.0) % Lymph # (Auto) 1.20 (1.10-4.50) K/mm3 [place] # (Auto) 0.99 H (0.10-0.90) K/mm3 Eos # (Auto) 0.04 (0.02-0.50) K/mm3 Baso # (Auto) 0.03 (0.00-0.10) K/mm3 Abs Immat Gran (auto) 0.09
[2024-06-06 17:16] VITALS: BP 139/94; PULSE 127; RESP 18; TEMP 36.7; O2SAT 98
[2024-06-06 17:42] LABS: Add Urine Microscopic? YES; Appearance Urine Clear (Clear); Bilirubin Urine Negative (Negative); Blood Urine Negative (Negative); Color Urine Light Yellow (Yellow); Glucose Urine UA Negative (Negative); Ketones Urine Negative (Negative); Leukocyte Esterase Ur Trace LEU/UL (Negative); Nitrate Urine Negative (Negative); Protein Urine Trace (Negative); pH Urine 7.5 (5.0-8.0)
[2024-06-06 17:55] LABS: Basophils Absolute Auto 0.03 K/mm3 (0.00-0.10); Basophils Percent Auto 0.2 % (0.0-1.0); Eosinophils Absolute Auto 0.04 K/mm3 (0.02-0.50); Eosinophils Percent Auto 0.3 % (1.0-6.0); Hematocrit 28.1 % (35.0-49.0); Hemoglobin 9.4 g/dL (12.0-15.0); Immature Granulocyte Absolute 0.09 K/mm3 (0.00-0.00); Immature Granulocyte Percent A 0.7 % (0.0-0.0); Lymphocytes Percent Auto 8.8 % (18.0-42.0); Mean Corpuscular HGB Conc 33.5 g/dL (32-36); Mean Corpuscular Hemoglobin 29.5 pg (27.0-31.0); Mean Corpuscular Volume 88.1 fL (78.0-102.0); Mean Platelet Volume 9.1 fl (9.2-11.8); Monocytes Absolute Auto 0.99 K/mm3 (0.10-0.90); Monocytes Percent Auto 7.2 % (2.0-11.0); Neutrophils Absolute Auto 11.33 K/mm3 (1.70-7.20); Neutrophils Percent Auto 82.8 % (50.0-70.0); Platelet Count Result 279 K/mm3 (150-420); Red Blood Count 3.19 M/mm3 (4.20-5.40); Red Cell Distribution Width 14.3 % (11.6-14.4); White Blood Count 13.7 K/mm3 (4.8-10.8)
[2024-06-06 18:09] LABS: Alanine Aminotransferase 51 U/L (14-59); Albumin Level 2.7 g/dL (3.4-5.0); Alkaline Phosphatase 92 U/L (46-116); Anion Gap 8 mmol/L (4-12); Aspartate Amino Transferase 24 U/L (15-37); Bilirubin,Total 0.6 mg/dL (0.00-1.00); Blood Urea Nitrogen 10 mg/dL (7-18); Calcium 8.8 mg/dL (8.5-10.1); Carbon Dioxide 25 mmol/L (21-32); Chloride 102 mmol/L (98-108); Estimated CRCL calculation 115 ml/min; Estimated Glomerular Filt Rate > 60; Glucose 82 mg/dL (70-99); Osmolality Calculated 278 mOsm/kg (285-295); Sodium 135 mmol/L (136-145); Total Protein 6.2 g/dL (6.4-8.2)
[2024-06-06 18:17] LABS: Amorphous Sediment Urine Few; Bacteria Urine 1+ /hpf; RBC Urine 0-2 /hpf (0-2); Squamous Epithelial Cell Urine Moderate /hpf (Few)
[2024-06-06 18:38] VITALS: BP 136/93; PULSE 122; RESP 20; TEMP 36.6; O2SAT 97
== END 2024-06-06 18:39 | disposition home or self-care (01) ==
PROVIDERS: Emergency Provider Internal Medicine Critical Care Medicine; PCP Obstetrics & Gynecology
DX: Z48.01 Encounter for change or removal of surgical wound dressing (principal); Z79.899 Other long term (current) drug therapy
CPT/HCPCS: 36415; 80053; 81001; 85025; 99283

== ENCOUNTER 2024-09-21 13:37 | Emergency (ER) | payer BC, OTHER, SELFPAY ==
--- NOTE | 2024-09-21 13:41 | ED.URI ---
HPI - URI/Sore Throat General Chief Complaint: Upper Respiratory Infection Stated Complaint: cough Time Seen by Provider: 09/21/24 13:40 Source: patient Mode of arrival: ambulatory Limitations: no limitations History of Present Illness HPI Narrative: patient is a 24-year-old female with cough congestion and not feeling well for the past 2 days. She had exposure to strep and influenza A. MD elicited complaint: cough, sore throat and nasal congestion Pertinent past history: other ( Recurrent kidney infections; no complaints today of UTI or kidney) Onset (ago): day(s) (2) Consistency: constant Severity: moderate Pain scale (0-10): 2 Description of mucous: clear and watery Able to tolerate fluids by mouth: Yes Exacerbating factors: nothing Relieving factors: nothing Context: sick contacts Associated symptoms: fever, chills, myalgias, headache, nasal congestion, sore throat and cough Treatments prior to arrival: none Related Data Home Medications Medication Instructions Recorded Confirmed No Home Medications 09/21/24 09/21/24 Allergies Allergy/AdvReac Type Severity Reaction Status Date / Time No Known Allergies Allergy Mild Verified 06/06/24 17:25 Review of Systems Review of Systems: All systems reviewed & are unremarkable except as noted in HPI and below Constitutional: Constitutional: Reports no additional constitutional complaints Eyes: Eyes: Reports no additional eye complaints ENT: Reports system reviewed and no additional complaints, except as documented Cardiovascular: Cardiovascular: Reports no additional cardiovascular complaints Respiratory: Respiratory: Reports no additional respiratory complaints Gastrointestinal: Gastrointestinal: Reports no additional gastrointestinal complaints Genitourinary: Genitourinary: Reports no additional female genitourinary complaints Musculoskeletal: Musculoskeletal: Reports no additional musculoskeletal complaints Integumentary/Breasts: Skin/Breast: Reports system reviewed and no additional complaints, except as docu Neurologic: Reports system reviewed and no additional complaints, except as documented Psychiatric: Psychiatric: Reports no additional psychiatric complaints Endocrine: Endocrine: Reports no additional endocrine complaints Hematologic/Lymphatic: Hematologic/Lymphatic: Reports no additional hematologic/lymphatic complaints Allergic/Immunologic: Allergic/Immunologic: Reports no additional allergic/immunologic complaints PMFSH Past Medical History Medical History Congenital xwxbcz-kxnzmgl-jgbjg reflux History of strep sore throat Surgical History Surgical History S/P tonsillectomy and adenoidectomy Family History Family History Father Hypertension Heart disease Mother Asthma Social History Social History Tobacco type: e-cigarettes/vaping Alcohol intake: never Substance use: never Living arrangements: with family Gender identity (if verbalized by the patient): Female Exam Const: General: ill appearing Nutritional Appearance: well nourished Orientation/consciousness: patient oriented x3 Limitations: no limitations HENMT: Head: normal to inspection Ears: external ears normal Face/Nose/Sinus: Normal external nose present Eyes: Conjunctivae: conjunctivae normal Pupils: Equal, round and reactive pupils present EOM: EOMs intact bilaterally Neck: Neck: normal visual inspection Chest: Chest palpation & inspection: normal inspection of the chest Resp: Effort & Inspection: normal respiratory effort and not labored Auscultation: clear to auscultation bilaterally and no crackles Cardio: Rate: abnormal rate and tachycardic Rhythm: regular rhythm Heart sounds: no murmurs GI: Inspection: non-distended GI Palp: Yes Soft to palpation and No Tenderness to palpation present (GI) Auscultation: normal bowel sounds : General: Yes bladder normal to palpation Back/Spine/Pelvis: Back: no CVA tenderness Skin: General skin exam: normal color Rashes: no rashes Wounds: no wounds Neuro: General: patient oriented x3 Cranial nerves: Yes Nystagmus not present Speech: normal speech Extrem: General: normal to inspection Psych: Mental Status: mental status grossly normal Affect: normal affect Attitude: cooperative Course Vital Signs Vital signs: Vital Signs Temperature 37.4 C 09/21/24 13:49 Pulse Rate 121 H 09/21/24 13:49 Respiratory Rate 20 09/21/24 13:49 Blood Pressure 139/88 09/21/24 13:49 Oxygen Delivery Room Air 09/21/24 13:49 Temperature 37.4 C 09/21/24 13:49 Pulse Rate 121 H 09/21/24 13:49 Respiratory Rate 20 09/21/24 13:49 Blood Pressure 139/88 09/21/24 13:49 Oxygen Delivery Room Air 09/21/24 13:49 MDM - URI/Sore Throat MDM Narrative Medical decision making narrative: patient is a 24-year-old female that is not feeling well for the past 2 days. She was positive for influenza A. We will add Tamiflu. No kidney or urinary complaints at this time. 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 Lab Data Attestation: I reviewed the patient's lab results. Labs: Lab Results 09/21/24 Range/Units 13:41 Influenza A (RT-PCR) Positive A (Negative) Influenza B (RT-PCR) Negative (Negative) RSV (RT-PCR) Negative (Negative) SARS-CoV-2 RNA (RT-PCR) Negative (Negative) Group A Strep (PCR) Not detected (Negative) Discharge Plan Discharge Clinical Impression: Influenza A Patient Disposition: Home, Self-Care Condition: Stable Instructions: Influenza (DC) Prescriptions: No Action No Home Medications Follow-up/Referrals: Hector Douglass MD [Primary Care Provider] - Time of Disposition: 14:30
[2024-09-21 13:49] VITALS: BP 139/88; PULSE 121; RESP 20; TEMP 37.4
[2024-09-21 14:21] LABS: Strep Group A RT-PCR NOT DETECTED (Negative)
[2024-09-21 14:25] LABS: Influenza A QL RT-PCR Positive (Negative); Influenza B QL RT-PCR Negative (Negative); SARS-CoV-2 RNA PCR Negative (Negative)
[2024-09-21 14:26] LABS: RSV RNA, RT-PCR Negative (Negative)
== END 2024-09-21 14:50 | disposition home or self-care (01) ==
PROVIDERS: Emergency Provider Emergency Medicine; PCP Family Medicine Adolescent Medicine
DX: J10.1 Influenza due to other identified influenza virus with other respiratory manifestations (principal); Z20.822 Contact with and (suspected) exposure to COVID-19
CPT/HCPCS: 87637; 87651; 99283

== ENCOUNTER 2025-03-04 08:44 | Emergency (ER) | payer BC, OTHER, SELFPAY ==
[2025-03-04 08:44] VITALS: BP 135/88; PULSE 99; RESP 16; TEMP 36.3; O2SAT 99
--- OUTSIDE RECORDS SUMMARY | 2025-03-04 08:50 | XMS_ITS | Clinical Summary ---
Author Organization [facility] Address [address] [place] [address] Care Team Providers Care Powder Operator Name Role Phone Unavailable Primary Care Provider Unavailabl e Source Comments [facility],non-owned Affiliates and Associated Physician Practices is amultiple site organization consisting of ambulatory clinics and hospital sitesin [place], [place], [place] and [place]. This disclosure is being madepursuant to the Care Everywhere program and may not contain all information available regarding this patient. Last updated 18.[facility] Allergies No known active allergies Medications * Be aware that medications may not be up to date on this document. Alwaysverify current medications with the patient. Vit-Fe Fumarate-FA ( vitamin) 28-0.8 MG tablet Take 1 (one) tablet by mouth once daily Active cephalexin (Keflex) 500 MG capsuleIndicati ons:Uncomplicat ed Urinary Tract Infection Take 1 (one) capsule by mouth 4 times daily Reasons: Simple Infection of the Urinary Tract Active famotidine (Pepcid) 20 MG tablet Take 1 (one) tablet by mouth 2 times daily 90 tablet 4 4 Active nitrofurantoin monohyd macro crystals (Macrobid) 100 MG capsule Take 1 (one) capsule by mouth once daily 90 capsule 1 4 Active ferrous sulfate 325 (65 FE) MG tablet Take 1 (one) tablet by mouth once daily 100 tablet 4 4 Active Active Problems Problem Noted Date Diagnosed Date growth restriction antepartum 05/06/2024 Overview (05/06/2024): 9.5% with elevated UADs at 24 weeks Iron deficiency 05/06/2024 Heartburn during , antepartum, second t rimester 05/06/2024 Recurrent UTI (urinary tract infection) complicating 05/06/2024 Family history of sleep apnea 05/06/2024 Elevated blood pressure affecting , ant epartum 05/06/2024 Overview (05/06/2024): BP 11 weeks 114/70 Vesicoureteric reflux 12/11/2023 Overview (05/06/2024): ppx keflex due to frequent UTIs Family history of cardiomyopathy 12/11/2023 Overview (05/06/2024): patient's father with hypertrophic cardiomyopathy Immunizations Immunization Administration Dates Next Due DTaP VACCINE IM (6wk-6yrs) 07/08/2006,,2002,07/16,2002 FLU, HISTORIC VACCINE 10/26/2005 HEP A PEDS 2 DOSE 10/26/2005,03/24/2005 HEP B VACCINE, PED/ADOL 06/27/2003,2002, HIB VACCINE 06/27/2003,2002,2002 INFLUENZA VACCINE, QUADR. (F LUZONE; FLULAVAL; FLUARIX; AFLURIA QUADRIVALENT; 6MO+), 0.5 ML (IIV4) 07/23/2016 MENINGOCOCCAL ACWY (MCV4P) VAC IM 07/31/2019,04/2016 MMR VACCINE 07/08/2006,03/20/2003 PNEUMOCOCCAL PCV7 CONJ, PEDS 06/27/2003, 2002,2002,05/08 POLIO IPV 07/08/2006, 3,2002,05/08 VARICELLA 07/08/2006,06/27/2003 Family History Medical History Relation Name Comments Cardiomyopathy Father Hypertension Father Hypertension Mother Relation Name Status Comments Father Alive Mother Alive Social History Tobacco Use Types Packs/Day Years Used Date Smoking Tobacco: Never Smokeless Tobacco: Never Tobacco Cessation:Counseling Given: Not Answered Alcohol Use Standard Drinks/Week Comments Not Currently 0 (1 standard drink = 0.6 oz pur e alcohol) Education Answer Date Recorded What is the highest level of school you have completed or the highest degree you have received? 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 Not on file Not on file Not on file Last Filed Vital Signs Vital Sign Reading Time Taken Comments Blood Pressure 135/92 05/22/2024 9:40 AM CDT Pulse 63 05/22/2024 9:40 AM CDT Temperature - - Respiratory Rate 18 05/16/2024 8:30 AM CDT Oxygen Saturation - - Inhaled Oxygen Concentration - - Weight 54 kg (119 lb) 05/01/2024 9:23 AM CDT Height 156.8 cm (5' 1.75 ) 05/01/2024 9:23 AM CD T Body Mass Index 21.94 05/01/2024 9:23 AM CDT Plan of Treatment Health Maintenance Due Date Last Done Comments PAP SMEAR 2002 DTAP/TDAP/TD VACCINES (6 - Tdap) 2013 07/08/2006, 03/20/2003, 2002, Additional history exists HPV VACCINE (1 - 3-dose series) 2017 CHLAMYDIA/GONORRHEA SCREENING 2018 MENINGOCOCCAL (Group B) VACC INE SHARED DECISION-MAKING (1 of 2 - Standard) 2018 HEPATITIS C SCREENING 03/02/2020 COVID-19 VACCINE ( - 2023-2 5 season) 2024 DEPRESSION SCREENING 10/17/2024 INFLUENZA VACCINE (Season Ended) 2025 07/23/20 16, 10/26/2005 ZOSTER VACCINE (1 of 2) 2052 HEPATITIS B VACCINE Completed 06/27/2003, 2002, 2002 HIB VACCINE Completed 06/27/2003, 06/19, 2002 PNEUMOCOCCAL VACCINE Completed 06/27/2003, 2002, 2002, Additional history exists MENINGOCOCCAL GROUPS A/C/Y/W VACCINE Completed 07/31/2019, 07/23/2016 HIV SCREENING Completed 05/18/2024 Insurance [facility] MEDICA[facility] - [id number]
--- OUTSIDE RECORDS SUMMARY | 2025-03-04 08:50 | XMS_ITS | Clinical Summary ---
Author Organization [facility] [address] Address [address] [place] [address] Care Team Providers Care Dairy Equipment Repairer Name Role Phone Dominique Escalera Primary Care Provider [phone] Allergies No known active allergies Active Problems Problem Noted Date Diagnosed Date Need for meningococcal vaccination 07/31/2019 Assessment & Plan (07/31/2019 10:49 AM CDT): Updated in office Right ear pain 07/31/2019 Assessment & Plan (07/31/2019 10:50 AM CDT): Canals are clear. Take Flonase, Claritin and mucinex daily. If sxs persist may consider ENT. Mom declines at this time because she has no limitations on the weekends. She wants to monitor. Immunizations Immunization Administration Dates Next Due DTaP 07/08/2006, 3,2002,07/16,2002 Hep A, Pediatric 10/26/2005,03/24/2005 Hep B, Adolescent or Pediatric 06/27/2003,2001,2002 HiB 06/27/2003,2002,2002 IPV 07/08/2006, 3,2002,05/08 Influenza, Quadrivalent, Spl it, Preservative Free, Intramuscular 07/23/2016 Influenza, Whole 10/26/2005 MMR 07/08/2006,03/20/2003 Meningococcal MCV4P (Menactra) 07/31/2019,2015 Pneumococcal Conjugate 7-Valent 06/27/20 03,2002,2002,05/08 Varicella 07/08/2006,06/27/2003 Social History Tobacco Use Types Packs/Day Years Used Date Smoking Tobacco: Never Assessed Personal Safety Answer Date Recorded Have you ever been in or are you currently in a harmful physical or emotional relationship or is someone making you feel afraid or unsafe? 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 Gender Identity Not on file Sexual Orientation Not on file Last Filed Vital Signs Vital Sign Reading Time Taken Comments Blood Pressure 137/88 08/24/2023 11:00 PM DINKEY DISPATCHER Pulse 103 08/24/2023 11:00 PM DINKEY DISPATCHER Temperature 36.9 C (98.4 F) 08/24/2023 11:00 PM DINKEY DISPATCHER Respiratory Rate 18 08/24/2023 8:13 PM DINKEY DISPATCHER Oxygen Saturation 99% 08/24/2023 11:00 PM DINKEY DISPATCHER Inhaled Oxygen Concentration - - Weight 52 kg (114 lb 10.2 oz) 08/24/2023 8:13 PM DINKEY DISPATCHER Height 151.1 cm (4' 11.5 ) 07/23/2016 9:00 AM CD T Body Mass Index - - Plan of Treatment Health Maintenance Due Date Last Done Comments Cervical Cancer Screening 2002 Depression Screening 2002 Hepatitis C Screening 2002 DTaP/Tdap/Td Vaccine (6 - Tdap) 2013 07/08/2006, 03/20/2003, 2002, Additional history exists HPV Vaccines (1 - 3-dose series) 2017 Meningococcal B Vaccine (1 o f 2 - Standard) 2018 Regular Well Visit/Exam 18-64 2020 Influenza Vaccine (#1) 2024 07/23/2016, 2005 Hepatitis B Screening Completed 06/27/2003 , 2002, 2002 Pneumococcal vaccine <65 Completed 003, 2002, 2002, Additional history exists Varicella Vaccines Completed 07/08/2006, 06/27/2003 Insurance ANTHEM ACCESS ANTHEM ACCESS CHOICE Care Teams Dairy Equipment Repairer Relationship Specialty Start Date End Date Dominique Escalera PA [address] [place] [address] PCP - General Internal Medicine 07/31/19
--- OUTSIDE RECORDS SUMMARY | 2025-03-04 08:50 | XMS_ITS | Data Portability ---
Author Organization [facility] Address [address] [place] [address] Assessment Encounter Date Assessment Date Assessment LastModified by Organization Details LastModified Time 04/05/2024 04/05/2024 Patient is ___weeks . Discussed plan. [email or web address] Not available 04/05/2024 13:05:23 05/18/2024 05/18/2024 Patient is ___weeks . Discussed plan. [email or web address] Not available 05/18/2024 11:14:30 Plan of Treatment Reminders Order Date Submit Date Provider Last Modified By Organization Details Last Modified Time Details Appointments None recorded. Lab None recorded. Referral None recorded. Procedures None recorded. Surgeries None recorded. Imaging US, obstetric, follow-up 2023 [address], [address], [place], [address], 20:10:07 US, doppler, umbilical artery velocimetry [address], [address], [place], [address], 20:10:07 US, obstetric, transvagina l [address], [address], [place], [address], 20:10:07 US, obstetric, limited 2023 024 [email or web address] [place], [address], [place], [address], 4 19:11:08 US, obstetric, transvagina l 2023 024 [email or web address] [place], [address], [place], [address], 4 19:11:08 Medication Orders None recorded. Patient TargetsNo targets recorded. Patient InstructionsNo instructions recorded. Reason for Referral None Reported. Results Created Date Observation Date Name Description Value Unit Range Abnormal Flag Note LastModifiedBy Organization Detail LastModifiedTime 05/18/2005/18/2024 HEMAT OCRIT (HCT) HCT 37.6 % (based on docume nted legal sex) 34.0-[address] [facility] (Lab) [address] [facility], [place], [address], 05/19/2024 15:57:55 05/18/20 24 05/18/2024 HEMOG LOBIN (HGB) HGB 12.1 g/dL (based on docume nted legal sex) 11.6-[address] [facility] (Lab) [address] [place], [address], 05/19/2024 15:57:56 05/18/20 24 05/18/2024 GTT - GESTA MARGIE L SCREE N, ACOG OB glucose, 1 hour screen 151 mg/dL 70-135 high Not Available [facility] (Lab) [address] [place], [address], 05/19/2024 15:57:56 05/18/20 24 05/18/2024 HIV 1/2 ANTIG EN/AN TIBOD Y, REFLE X CONFI RMATI ON HIV antigen/anti body Nonrea ctive nonrea ctive HIV-1 antig en and HIV-1 /HIV- 2 antib odies were not detec nikhil. No labor atory evide nce of HIV infec tion. Not Available [facility] (Lab) [address] [facility], [place], [address], 05/19/2024 15:57:57 05/18/20 24 05/18/2024 RPR SCREE N, REFLE X TITER /CONF IRMAT ION RPR screen Nonrea ctive nonrea ctive Not Available [facility] (Lab) [address] [facility], [place], [address], 05/19/2024 15:57:57 05/21/20 24 05/21/2024 GTT - GESTA MARGIE L, 3 HOUR, ACOG glucose, fasting acog 80 mg/dL Not Available [facility] (Lab) [address] [facility], [place], [address], 05/24/2024 08:16:43 05/21/20 24 05/21/2024 GTT - GESTA MARGIE L, 3 HOUR, ACOG glucose, 1 hour acog 171 mg/dL 70-179 Not Available [facility] (Lab) [address] [facility], [place], [address], 05/24/2024 08:16:43 05/21/20 24 05/21/2024 GTT - GESTA MARGIE L, 3 HOUR, ACOG glucose, 2 hour acog 137 mg/dL 70-154 Not Available [facility] (Lab) [address] [facility], [place], [address], 05/24/2024 08:16:43 05/21/20 24 05/21/2024 GTT - GESTA MARGIE L, 3 HOUR, ACOG glucose, 3 hour acog 112 mg/dL 70-139 Not Available [facility] (Lab) [address] [facility], [place], [address], 05/24/2024 08:16:43 03/20/20 24 03/20/2024 US, obste tric, 2nd or 3rd trime ster No observ ation record ed. [email or web address] [place] [address], [place], [address], 03/20/2024 12:55:14 03/20/20 24 03/20/2024 US, obste tric, trans vagin al No observ ation record ed. [email or web address] [place] [address], [place], [address], 03/20/2024 12:55:05 03/20/20 24 03/20/2024 US, obste tric, 2nd or 3rd trime ster No observ ation record ed. GEENA Diane [address], [place], [address], 05/11/2024 13:39:18 03/20/20 24 03/20/2024 US, obste tric, 2nd or 3rd trime ster No observ ation record ed. [email or web address] [address], [place], [address], 03/21/2024 07:32:38 04/05/20 24 04/05/2024 US, obste tric, limit ed No observ ation record ed. [email or web address] [place] [address], [place], [address], 04/05/2024 16:43:01 04/05/20 24 04/05/2024 US, obste tric, trans vagin al No observ ation record ed. [email or web address] [place] [address], [place], [address], 04/05/2024 16:42:49 04/05/20 24 04/05/2024 US, obste tric, limit ed No observ ation record ed. [email or web address] [address], [place], [address], 04/05/2024 19:38:22 04/18/20 24 04/18/2024 US, obste tric, follo w-up No observ ation record ed. [facility] [address], [place], [address], 04/18/2024 18:19:22 04/18/20 24 04/18/2024 US, doppl er, umbil ical arter y veloc imetr y No observ ation record ed. [facility] [address], [place], [address], 04/18/2024 18:19:36 04/18/20 24 04/18/2024 US, obste tric, trans vagin al No observ ation record ed. [facility] [address], [place], [address], 04/18/2024 18:19:48 04/18/20 24 04/18/2024 US, obste tric, follo w-up No observ ation record ed. [email or web address] [address] [facility], [place], [address], 04/19/2024 00:12:16 04/27/20 24 04/27/2024 US, echoc ardio gram No observ ation record ed. [facility] [address], [place], [address], 05/11/2024 13:39:17 05/01/20 24 05/01/2024 US, obste tric, follo w-up No observ ation record ed. [email or web address] [facility] [address], [place], [address], 05/02/2024 16:22:30 05/01/20 24 05/01/2024 US, obste tric, follo w-up No observ ation record ed. [email or web address] [facility] [address], [place], [address], 05/01/2024 11:31:42 05/08/20 24 05/08/2024 US, obste tric, follo w-up No observ ation record ed. [email or web address] [place] [address], [place], [address], 05/08/2024 14:23:50 05/08/20 24 05/08/2024 non-s tress test No observ ation record ed. [email or web address] [facility] [address], [place], [address], 05/18/2024 17:20:47 05/17/20 24 05/16/2024 US, obste tric, follo w-up No observ ation record ed. [email or web address] [facility] [address] [facility] [address], [place], [address], 05/18/2024 11:08:47 05/22/20 24 05/22/2024 US, obste tric, follo w-up No observ ation record ed. [email or web address] [facility] [address] [place] [address], [address], 05/28/2024 11:19:44 05/22/20 24 05/22/2024 US, obste tric, follo w-up No observ ation record ed. [email or web address] [place] [address], [place], [address], 05/25/2024 11:05:41 05/22/20 24 05/22/2024 US, obste tric, follo w-up No observ ation record ed. [email or web address] [facility] [address] [facility] [address] [place], [place] [address], [place], [address], 05/25/2024 11:05:35 05/23/20 24 05/23/2024 imagi ng/di agnos tic resul t No observ ation record ed. [email or web address] [facility] [address], [place], [address], 05/24/2024 11:51:05 05/24/2005/24/2024 US, obste tric No observ ation record ed. [email or web address] [facility] [address], [place], [address], 05/25/2024 10:42:15 05/28/20 24 05/28/2024 US, obste tric No observ ation record ed. [email or web address] [facility] [address], [place], [address], 05/30/2024 10:40:01 Result Notes None recorded. Problems Name Problem SNOMED Code Status Onset Date Resolution Date Notes Provider Name and Address Organization Details Recorded Time Vesicour eteric reflux Active 2023 ppx keflex due to frequent UTIs Rosio cota, [facility] 4 16:23:34 Family history of Cardiomy opathy 657669138 Active 2023 patient' s father with hypertro phic cardiomy opathy NATALIIA CRUZ MD [address], [place], [address], [facility] 4 21:52:17 Pregnanc y 67724887 Completed 202308/09/2024 Ricci Martin null, [facility] 4 14:14:15 Vesicour eteric reflux 565217707 Completed 2023 ppx keflex due to frequent UTIs Rosio cota [facility] 4 16:23:34 Family history of Congenit al heart disease 182037323 Completed pt's father with HCM; will order maternal echo oRsio cota, [facility] 4 16:23:34 Family history of Congenit al heart disease 910738575 Active pt's father with HCM; will order maternal echo Rosio cota, [facility] 4 16:23:34 growth restrict ion 01703246 Completed 9.5% with elevated UADs at 24 weeks Rosio cota, [facility] 4 16:23:34 growth restrict ion 90325707 Active 9.5% with elevated UADs at 24 weeks Rosio cota, [facility] 4 16:23:34 Pregnanc y-induce d hyperten halie 72341771 Completed 2023 twice weekly antenata l testing, weekly labs, 37 week inductio n NATALIIA CRUZ MD [address], [place], [address], [facility] 4 14:20:41 Problem Notes None recorded. Procedures Surgical History None recorded. Imaging Results Imaging Date Name Status LastModified by Organization Details LastModified Time 03/20/2024 US, obstetric, 2nd or 3rd trimester completed [email or web address] [place] [address], [place], [address], 03/20/2024 12:55:14 03/20/2024 US, obstetric, transvaginal completed [email or web address] [place] [address], [place], [address], 03/20/2024 12:55:05 03/20/2024 US, obstetric, 2nd or 3rd trimester completed GEENA Diane [address], [place], [address], 05/11/2024 13:39:18 03/20/2024 US, obstetric, 2nd or 3rd trimester completed [email or web address] [address], [place], [address], 03/21/2024 07:32:38 04/05/2024 US, obstetric, limited completed [email or web address] [place] [address], [place], [address], 04/05/2024 16:43:01 04/05/2024 US, obstetric, transvaginal completed [address], [place], [address], 04/05/2024 16:42:49 04/05/2024 US, obstetric, limited completed [email or web address] [address], [place], [address], 04/05/2024 19:38:22 04/18/2024 US, obstetric, follow-up completed [facility] [address], [place], [address], 04/18/2024 18:19:22 04/18/2024 US, doppler, umbilical artery velocimetry completed [facility] [address], [place], [address], 04/18/2024 18:19:36 04/18/2024 US, obstetric, transvaginal completed [facility] [address], [place], [address], 04/18/2024 18:19:48 04/18/2024 US, obstetric, follow-up completed [email or web address] [address], [place], [address], 04/19/2024 00:12:16 04/27/2024 US, echocardiogram completed GEENA Green [address], [place], [address], 05/11/2024 13:39:17 05/01/2024 US, obstetric, follow-up completed [email or web address] [place] [address] [facility] [address] , [place], [address], 05/02/2024 16:22:30 05/01/2024 US, obstetric, follow-up completed [email or web address] [facility] [address] [facility] [address], [place], [address], 05/01/2024 11:31:42 05/08/2024 US, obstetric, follow-up completed [email or web address] [place] [address], [place], [address], 05/08/2024 14:23:50 05/08/2024 non-stress test completed [email or web address] [place] [address] [facility] [address], [place], [address], 05/18/2024 17:20:47 05/16/2024 US, obstetric, follow-up completed [email or web address] [facility] [address] [facility] [address], [place], [address], 05/18/2024 11:08:47 05/22/2024 US, obstetric, follow-up completed [email or web address] [facility] [address], [place], [address], 05/28/2024 11:19:44 05/22/2024 US, obstetric, follow-up completed [email or web address] [facility] [address] [address], [place], [address], 05/25/2024 11:05:41 05/22/2024 US, obstetric, follow-up completed [email or web address] [facility] [address] [address] [place], [address], 05/25/2024 11:05:35 05/23/2024 imaging/diagnostic result completed [email or web address] [facility] [address] [facility], [place], [address], 05/24/2024 11:51:05 05/24/2024 US, obstetric completed [email or web address] [facility] [address], [place], [address], 05/25/2024 10:42:15 05/28/2024 US, obstetric completed [email or web address] [facility] [address] [facility], [place], [address], 05/30/2024 10:40:01 Procedure Notes None recorded. Medical Equipment None Reported. Allergies No known drug allergies Medications Name Sig Start Date Stop Date Status Note LastModified by Organization Details LastModified Time cyclobenzap rine 10 mg tablet Take 1 tablet 3 times a day by oral route. 04/05 completed Not Available Not Available Not Available clindamycin HCl 300 mg capsule 300 MG ORALLY EVERY 8 HOURS 12/07 completed Not Available Not Available Not Available cephalexin 250 mg capsule Take 1 capsule every day by oral route, for UTI preventio n. 04/05 completed Not Available Not Available Not Available ondansetron 8 mg disintegrat ing tablet Place 1 tablet twice a day by transling ual route. 2023 active Not Available Not Available Not Avai lable lidocaine HCl 2 % mucosal solution APPLY TO AFFECTED MUCOSAL AREA FOUR TIMES DAILY NEEDED FOR PAIN FOR 5 DAYS 12/07 completed Not Available Not Available Not Available ondansetron 4 mg disintegrat ing tablet 4 MG ORALLY EVERY 8 HOURS NEEDED FOR NAUSEA AND VOMITING 04/05 completed Not Available Not Available Not Available amoxicillin 500 mg-potassiu m clavulanate 125 mg tablet TAKE 1 TABLET BY MOUTH 3 TIMES A DAY 12/07 completed Not Available Not Available Not Available Gummies active Not Available Not Available Not Available Vitals Date Recorded Body height Body mass index (BMI) Body weight Systolic blood pressure Diastolic blood pressure Provider Name and Address Organization Details Last Updated DateTime 04/05/2024 155.58 cm 22.3 kg/m2 14253.49 203 g 131 mm[Hg] 84 mm[Hg] Luanne Moncada [place] - [facility] 13:06:04 Date Recorded Body height Body mass index (BMI) Systolic blood pressure Diastolic blood pressure Provider Name and Address Organization Details Last Updated DateTime 04/18/2024 155.58 cm 22.7 kg/m2 134 mm[Hg] 85 mm[Hg] Enriqueta Laboy [facility] 04/18/2024 17:22:54 Date Recorded Body weight Provider Name an d Address Organization Details Last Updated DateTime 04/18/2024 52294.08694 g Arthur MORAES [address], [place], [address], [facility] 04/18/2024 17:46:42 Date Recorded Body height Body mass index (BMI) Body weight Systolic blood pressure Diastolic blood pressure Systolic blood pressure Diastolic blood pressure Provider Name and Address Organization Details Last Updated DateTime 155.58 cm 22.7 kg/m2 09730.4 g 183 mm[Hg] 107 mm[Hg] 140 mm[Hg] 90 mm[Hg] Enriqueta Laboy [facility] 11:32:11 Social History Question Answer Notes LastModified by Organizat ion Details LastModified Time In The 14 Days Before Symptom Onset, Have You Had Close Contact With A Laboratory-confirmed COVID-19 While That Case Was Ill? No Information not available 12/07/2023 In The 14 Days Before Symptom Onset, Have You Had Close Contact With A Person Who Is Under Investigation For COVID-19 While That Person Was Ill? No Information not available 12/07/2023 Have You Been To An Area Known To Be High Risk For COVID-19? No Information not available 12/07/2023 Sex: Unknown Functional Status None recorded. Mental Status None recorded. Family History Relationship Description Onset Age of this Age Resolved Age Notes LastModified by Organization Details LastModified Time Father Heart disease [email or web address] Not available 2023 17:39:08 Father Hypercholest erolemia [email or web address] Not available 2023 17:39:21 Father Essential hypertension [email or web address] Not available 17:39:29 Medical History Condition Response Allergies (Food, seasonal, environmental ) N Other N Breast Cancer N Drug/Latex Allergies/Reactions N Blood Transfusion N Dermatologic Disorders N Lung Disease N Defects or Inherited Disease N Breast Problem N Gestational Diabetes N Hematologic disorders N Anesthesia Complications N History of STI N Deep Vein Thrombosis N Polycystic ovary syndrome N Anxiety Disorder N Autoimmune disease N Arthritis N Infertility N Polyps N Acid Reflux (GERD) N History of abnormal pap N Cancer N Stroke N Varicosities N Neurologic/Epilepsy N Endometriosis N High Cholesterol N Headaches N Fibromyalgia N Kidney Disease Y Heart Problems N Kidney or Bladder Problems N Thyroid Problems N GI Problems N Eating Disorder N Anemia N Art (IVF or FET) N Psychiatric Illness N Ovarian Cancer N Diabetes N Pulmonary (TB, Asthma) N Hepatitis/Liver Disease N No Past Medical History N Eczema N Urinary Tract Infection N Abuse/Domestic Violence N Asthma N Trauma/Violence N Depression/ depression N Heart Disease N Pre-Eclampsia N Hypertension N Osteoporosis N Thrombophilias N Gynecological History Statement/Question Response Date of LMP Sexually Active? Y STIs/STDs N HPV Vaccine N Date of Last Pap Smear Sexual Problems? N Current Control Method Desired Control Method None LMP Unknown Obstetrics History GPAL:G 1 P 0 0 0 0 Past Encounters Encounter ID Performer Location Encounter Start Date Encounter Closed Date Diagnosis/Indication Diagnosis SNOMED-CT Code Diagnosis ICD10 Code Diagnosis Note [id number] Kenton Carmichael MD [place] [address],[facility] [place] [address] 12/07/2023 15:57:07 12/07/2023 16:45:33 screening 514208151 Z36.87 Z3A.01 [id number] NATALIIA CRUZ MD [place] [address],[facility] [place] [address] 12/07/2023 16:07:50 12/13/2023 09:00:23 test positive 390933457 Z32.01 1. Exam today within normal limits.2. Ultrasound today shows GS and YS but no FP; will repeat US in 1 week3. GC/Clamydi a testing done: will f/u as indicated. 4. ACOG guidelines and plan of care for reviewed with patient. All questions answered.5 . Return to office in 4 weeks for new OB visit6. Genetic screening: desires. Family his tory of Congenital heart disease 122019629 Z82.79 - patient's father with hypertroph ic cardiomyop athy- plan for maternal echo to evaluate patient Vesicoureteric reflux 19 0909918 N13.9 - pending new OB urine culture, consider ppx abx due to history of recurrent UTIs [id number] Kenton Carmichael MD [place] [address],[place] [address] 12/15/2023 15:53:13 12/15/2023 16:30:54 [id number] NATALIIA CRUZ MD [place] [address],[place] [address] 12/28/2023 14:23:44 01/04/2024 15:23:53 Recurrent urinary tract infection 212063013 N39.0 Family his tory of Cardiomyopathy 098173281 Z82.49 Vesicoureteric reflux 19 1766374 N13.9 - pending new OB urine culture, consider ppx abx due to history of recurrent UTIs Gestation period, 8 weeks 45077298 Z3A.08 [id number] Kenton Carmichael MD [place] [address],[place] [address] 01/23/2024 13:49:16 01/23/2024 14:31:16 screening 825311650 Z36.82 Gestation period, 11 weeks 89797830 Z3A.11 [id number] NATALIIA CRUZ MD [place] [address],[place] [address] 01/23/2024 13:50:40 01/23/2024 16:01:12 Vesicoureteric reflux 646315472 N13.9 Low back p ain in 3696615176 106 O26.899 Gestation period, 11 weeks 71413204 Z3A.11 Recurrent urinary tract infection 154135895 N39.0 [id number] NATALIIA CRUZ MD [place] [address],[place] [address] 02/20/2024 13:53:30 02/20/2024 15:20:10 Family history of Cardiomyopathy 543705345 Z82.49 Vesicoureteric reflux 19 7965300 N13.9 Gestation period, 15 weeks 6078546 Z3A.15 [id number] Kenton Carmichael MD [place] [address],[place] [address] 03/20/2024 10:58:01 03/20/2024 14:27:44 screening for malformation 846823684 Z36.3 Z3A.20 [id number] ANTALIIA CRUZ MD [place] [address],[place] [address] 03/20/2024 10:59:32 03/20/2024 14:02:18 Family history of Cardiomyopathy 693782218 Z82.49 Family his tory of Congenital heart disease 956024477 Z82.79 - patient's father with hypertroph ic cardiomyop athy- plan for maternal echo to evaluate patient Short cerv ical length in 245238271 O26.879 Gestation period, 20 weeks 82080896 Z3A.20 [id number] Kenton Carmichael MD [place] [address],[place] [address] 04/05/2024 12:29:19 04/05/2024 13:34:49 Routine care 692345279 Z34.02 [id number] Kenton Carmichael MD [place] [address],[place] [address] 04/05/2024 12:34:44 04/05/2024 13:54:34 Short cervical length in 416981523 O26.872 Z3A.22 [id number] Kenton Carmichael MD [place] [address],[place] [address] 04/18/2024 16:24:13 04/18/2024 17:12:56 Small for gestational age fetus 520068511 O36.5920 O26.879 Z3A.24 [id number] NATALIIA CRUZ MD [place] [address],[place] [address] 04/18/2024 16:32:26 04/19/2024 08:28:36 Family history of Cardiomyopathy 354962501 Z82.49 Family his tory of Congenital heart disease 277773764 Z82.79 - patient's father with hypertroph ic cardiomyop athy- plan for maternal echo to evaluate patient grow th restriction 12777544 O36.5999 Vesicoureteric reflux 19 9984010 N13.9 Gestation period, 24 weeks 119204862 Z3A.24 [id number] NATALIIA CRUZ MD [place] [address],[place] [address] 05/18/2024 10:56:25 05/22/2024 03:59:04 Family history of Cardiomyopathy 407566426 Z82.49 Family his tory of Congenital heart disease 752278033 Z82.79 - patient's father with hypertroph ic cardiomyop athy- plan for maternal echo to evaluate patient grow th restriction 94371421 O36.5999 - followed by MFM- weekly BPP/UADs, serial growth US - induced hypertension 64060627 O13.9 - twice weekly testing- weekly labs- 37 week induction of labor if stable- discussed risk of progressio n to preeclamps ia and warning signs Gestation period, 28 weeks 57058919 Z3A.28 Health Concerns Section Related Observation LastModified by Organization Detai ls LastModified Time None Recorded Concern Status LastModified by Organization Details LastModified Time None Recorded Advance Directives Directive None Recorded Payers Encounter Date Sequence Insurance Name Policy Number Policy Nash Covered Member ID Nash Member ID Guarantor Name 04/05/2024 1 [place] [id number] 8 Matt E Merritt [id number] BY [id number] Carline Merritt 04/05/2024 1 [place] [id number] Matt E Merritt [id number] BY [id number] Carline Merritt 04/18/2024 1 [place] [id number] 8 Matt E Merritt [id number] BY [id number] Carline Merritt 04/18/2024 1 [place] [employer] [id number] Matt E Merritt [id number] BY [id number] 8BY Carline Merritt 05/18/2024 1 [place] [id number] 8 Matt E Merritt [id number] BY [id number] 8BY Carline Marti OBGyn Episode Ob Episode Information Episode Created Date Number of Fetuses Patient Bloodtype Patient rh Status Prepregnancy Weight lbs Domestic Partner Domestic Partner Phone Father Name 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 Address [address] [place] [address] Care Team Providers Care Human Projectile Name Role Phone None, Provider Primary Care Provider Unavaila ble Allergies No known active allergies Social History Tobacco Use Types Packs/Day Years Used Date Smoking Tobacco: Never Assessed Comments Unknown Sex and Gender Information Value Date Recorded Sex Assigned at Not on file Legal Sex Female 7:42 PM VP CORPORATE DEVELOPMENT Gender Identity Not on file Sexual Orientation Not on file Last Filed Vital Signs Vital Sign Reading Time Taken Comments Blood Pressure 130/94 12/06/2022 7:48 PM VP CORPORATE DEVELOPMENT Pulse 106 12/06/2022 7:48 PM VP CORPORATE DEVELOPMENT Temperature 36.6 C (97.9 F) 12/06/2022 7:48 PM VP CORPORATE DEVELOPMENT Respiratory Rate 20 12/06/2022 7:48 PM VP CORPORATE DEVELOPMENT Oxygen Saturation 98% 12/06/2022 7:48 PM VP CORPORATE DEVELOPMENT Inhaled Oxygen Concentration - - Weight 45.4 kg (100 lb) 12/06/2022 7:48 PM VP CORPORATE DEVELOPMENT Height 154.9 cm (5' 1 ) 12/06/2022 7:48 PM VP CORPORATE DEVELOPMENT Body Mass Index 18.89 12/06/2022 7:48 PM VP CORPORATE DEVELOPMENT Plan of Treatment Health Maintenance Due Date Last Done Comments Cervical Cancer Screening Pap Smear (Age 21 to 29) Every 3 Years 2002 Cervical Cancer Screening 2002 Annual Physical 2005 DTaP, Tdap and Td Vaccines (6 - Tdap) 2013 07/08/2006, 03/20/2003, 2002, Additional history exists HPV Vaccines (1 - 3-dose series) 2017 Meningococcal B Vaccine (1 of 2 - Standard) 2018 Hepatitis C 2020 COVID-19 Vaccine (2023- season) 2024 Hepatitis B Vaccines Completed 06/27/2003, 2002, 2002 Pneumococcal Vaccine: Pediatrics (0 to 5 Years) and At-Risk Patients (6 to 49 Years) Aged Out 06/27/2003, 2002, 2002, Additional history exists No longer eligible based on patient's age to complete this topic Meningococcal Vaccine Completed 07/31/2019 RSV Immunizations Under 20 Months Aged Out No longer eligible based on patient's age to complete this topic Care Teams Human Projectile Relationship Specialty Start Date End Date None, Provider, PCP - General UNKNOWN PHYSICIAN SPECIALTY 12/06/22 "
--- OUTSIDE RECORDS SUMMARY | 2025-03-04 08:50 | XMS_ITS | Referral Summary ---
Author Organization [facility] [address] Address [address] [place] [address] Care Team Providers Care Equipment Service Lead Name Role Phone Dominique Escalera Primary Care Provider +1- [phone] Allergies No known active allergies Active Problems [...] on file Legal Sex Female 7:15 PM DIAPER FOLDER Gender Identity Not on file Sexual Orientation Not on file Last Filed Vital Signs Vital Sign Reading Time Taken Comments Blood Pressure 137/88 08/24/2023 11:00 PM DIAPER FOLDER Pulse 103 08/24/2023 11:00 PM DIAPER FOLDER Temperature 36.9 C (98.4 F) 08/24/2023 11:00 PM DIAPER FOLDER Respiratory Rate 18 08/24/2023 8:13 PM DIAPER FOLDER Oxygen Saturation 99% 08/24/2023 11:00 PM DIAPER FOLDER Inhaled Oxygen Concentration - - Weight 52 kg (114 lb 10.2 oz) 08/24/2023 8:13 PM DIAPER FOLDER Height 151.1 cm (4' 11.5 ) 07/23/2016 9:00 AM CD T Body Mass Index - - Plan of Treatment Not on file Insurance [facility] ANTHEM ACCESS CHOICE Care Teams Equipment Service Lead Relationship Specialty Start Date End Date Dominique Escalera PA [address] [place] [address] PCP - General Internal Medicine 07/31/19
--- OUTSIDE RECORDS SUMMARY | 2025-03-04 08:50 | XMS_ITS | Clinical Summary ---
Author Organization [facility] Address [address] [facility] [place] [address] Phone Care Team Providers Care Director Of Design Name Role Phone Unavailable Primary Care Provider Unavailabl e Allergies No known active allergies Medications vits15/iron/folic /dss ( VIT 59-[id number]-DSS ORAL) Take by mouth daily. Active famotidine (PEPCID) 20 mg tablet Take 20 mg by mouth 2 times daily. Active nitrofurantoin macrocrystaL (MACRODANTIN) 100 mg Capsule Take 100 mg by mouth 4 times daily with meals and at bedtime. Active ferrous sulfate 325 mg (65 mg iron) tablet Take 325 mg by mouth daily. Active docusate sodium (COLACE) 100 mg capsule Starting 06/06: Take 1 Capsule (100 mg) by mouth 2 times daily. 60 Capsule 06/05/2024 11:01 PM CDT 4 Active hydrALAZINE (APRESOLINE) 25 mg tablet Starting 06/06: Take 1 Tablet (25 mg) by mouth every 6 hours. 120 Tablet 06/05/2024 11:01 PM CDT 4 Active NIFEdipine (PROCARDIA XL) 30 mg Extended Release 24 hour tablet Starting 06/06: Take 1 Tablet (30 mg) by mouth every 12 hours. 60 Tablet 06/05/2024 11:01 PM CDT 4 Active oxyCODONE (ROXICODONE) 5 mg tabletIndications :Delivery of by section Take 1 Tablet (5 mg) by mouth every 4 hours as needed for pain. Max Daily Amount: 6 tablets 5 Tablet 06/05/2024 11:01 PM CDT Active Active Problems Problem Noted Date Diagnosed Date Preeclampsia in period 06/04/2024 Delivery of by section 2023 Severe pre-eclampsia in third trimester 05/28/20 24 Gestational hypertension, third trimester 2023 MFMtx(Jose Francisco)/OBH: pLTCS, PreE w SF, boy (nicu ) 05/23/2024 Encounters Date Type Department Care Team Description 02/19/2025 External Device Data [facility] ABSTRACTION Provider, Abstract 02/19/2025 External Device Data [facility] ABSTRACTION Provider, Abstract 01/08/2025 External Device Data [facility] ABSTRACTION Provider, Abstract 01/02/2025 External Device Data [facility] ABSTRACTION Provider, Abstract 12/24/2024 External Device Data [facility] ABSTRACTION Provider, Abstract 12/22/2024 External Device Data [facility] ABSTRACTION Provider, Abstract 12/21/2024 External Device Data [facility] ABSTRACTION Provider, Abstract 12/18/2024 External Device Data [facility] ABSTRACTION Provider, Abstract 12/05/2024 External Device Data [facility] ABSTRACTION Provider, Abstract from Last 3 Months Social History Tobacco Use Types Packs/Day Years Used Date Smoking Tobacco: Never Passive Smoke Exposure: Never Smokeless Tobacco: Never Tobacco Cessation:Counseling Given: Yes Alcohol Use Standard Drinks/Week Comments Not Currently 0 (1 standard drink = 0.6 oz pur e alcohol) Feeling Safe Answer Date Recorded Are you in a relationship wi th someone who hurts you emotionally and/or physically? Patient unable to answer 05/24/2024 Comments No Sex and Gender Information Value Date Recorded Sex Assigned at Not on file Legal Sex Female 11:40 AM CDT Gender Identity Not on file Sexual Orientation Not on file Last Filed Vital Signs Vital Sign Reading Time Taken Comments Blood Pressure 137/85 06/05/2024 9:14 PM CDT Pulse 123 06/05/2024 9:14 PM CDT Temperature 36.7 C (98 F) 06/05/2024 9:14 PM CDT Respiratory Rate 18 06/05/2024 9:14 PM CDT Oxygen Saturation 100% 06/05/2024 9:14 PM CDT Inhaled Oxygen Concentration - - Weight 55.3 kg (122 lb) 05/24/2024 7:46 PM CDT Height 154.9 cm (5' 1 ) 05/24/2024 7:46 PM CDT Body Mass Index 23.05 05/24/2024 7:46 PM CDT Plan of Treatment Health Maintenance Due Date Last Done Comments CHLAMYDIA SCREENING (ANNUAL) 11-24 YEARS 2013 DTAP/TDAP/TD VACCINES (6 - Tdap) 2013 07/08/2006, 03/20/2003, 2002, Additional history exists HPV VACCINES (1 - 3-dose series) 2017 CERVICAL CANCER SCREENING 2023 HPV/Cotest (21-29) 2023 PAP SMEAR 2023 INFLUENZA VACCINE (#1) 2024 07/23/2016 HEPATITIS B VACCINES Completed 06/27/2003, 2002, 2002 Insurance [employer] [place] Member Subscriber Plan / Payer (Ef fective 2024-Present) Name:Bryn Martinzimacy Maradiagaal Relation to Subscriber:Self Name:Bryn Martinzie Mccartney Payer ID:[id number] (NAIC) Type:PPO Address: [address] OUT OF [facility] RX CABRALES PLANS (INTERNAL) [facility] Internal Plans Advance Directives For more information, please contact: [phone] * Full Code (Latest Code Status on File) Date Activated Date Inactivated Comments 06/01/2024 4:09 AM 06/06/2024 1:26 AM * Full Code Date Activated Date Inactivated Comments 06/01/2024 4:09 AM 06/01/2024 4:09 AM * Full Code Date Activated Date Inactivated Comments 05/27/2024 12:17 AM 05/27/2024 1:09 PM * Full Code Date Activated Date Inactivated Comments 05/24/2024 11:22 PM 05/27/2024 12:17 AM
[2025-03-04 09:05] LABS: Add Urine Microscopic? YES; Bilirubin Urine Negative (Negative); Blood Urine 3+ (Negative); Color Urine Light Yellow (Yellow); Glucose Urine UA Negative (Negative); Ketones Urine Negative (Negative); Leukocyte Esterase Ur 3+ LEU/UL (Negative); Nitrate Urine Negative (Negative); Protein Urine 2+ (Negative); Urobilinogen Urine 0.2 mg/dL (0.2-1.0)
[2025-03-04 09:27] LABS: Appearance Urine Turbid (Clear); Bacteria Urine Trace /hpf; Squamous Epithelial Cell Urine Moderate /hpf (Few); WBC Urine >100 /hpf (0-3)
--- OUTSIDE RECORDS SUMMARY | 2025-03-04 09:48 | XMS_ITS | Clinical Summary ---
Author Organization [facility] [place] [address] Address [address] [place] [address] Care Team Providers Care Link Trainer Name Role Phone Dominique Escalera Primary Care Provider +1- [phone] Allergies No known active allergies Active Problems [...] on file Legal Sex Female 7:15 PM GENERAL LABOR Gender Identity Not on file Sexual Orientation Not on file Last Filed Vital Signs Vital Sign Reading Time Taken Comments Blood Pressure 137/88 08/24/2023 11:00 PM GENERAL LABOR Pulse 103 08/24/2023 11:00 PM GENERAL LABOR Temperature 36.9 C (98.4 F) 08/24/2023 11:00 PM GENERAL LABOR Respiratory Rate 18 08/24/2023 8:13 PM GENERAL LABOR Oxygen Saturation 99% 08/24/2023 11:00 PM GENERAL LABOR Inhaled Oxygen Concentration - - Weight 52 kg (114 lb 10.2 oz) 08/24/2023 8:13 PM GENERAL LABOR Height 151.1 cm (4' 11.5 ) 07/23/2016 [...] ANTHEM ACCESS ANTHEM ACCESS CHOICE Care Teams Link Trainer Relationship Specialty Start Date End Date Dominique Escalera PA [address] [place] [address] PCP - General Internal Medicine 07/31/19
--- OUTSIDE RECORDS SUMMARY | 2025-03-04 09:48 | XMS_ITS | Clinical Summary ---
Author Organization [email or web address] Address [address] [facility] [place] [address] Care Team Providers Care Senior Director Name Role Phone Unavailable Primary Care Provider Unavailabl e Source Comments [email or web address],non-owned Affiliates and Associated Physician Practices is amultiple site organization consisting of ambulatory clinics and hospital sitesin [place], [place], [place] and [place]. This disclosure is being madepursuant to the Care Everywhere program and may not contain all information available regarding this patient. 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
--- OUTSIDE RECORDS SUMMARY | 2025-03-04 09:48 | XMS_ITS | Clinical Summary ---
Author Organization [facility] Address [address] [place] [facility] [place] [address] Phone Care Team Providers Care Data Software Engineer Name Role Phone Unavailable Primary Care Provider Unavailabl e Allergies No known active allergies Medications vits15/iron/folic /dss ( VIT 35-IROR-ZRUBB-DSS ORAL) Take by mouth daily. Active famotidine [...] Martinzie Mccartney Payer ID:[id number] (NAIC) Type:PPO Address: [address] OUT OF [facility] RX CABRALES PLANS (INTERNAL) [facility] Internal Plans Advance Directives For more information, please contact: [phone] * Full Code (Latest Code Status on [...]
--- OUTSIDE RECORDS SUMMARY | 2025-03-04 09:48 | XMS_ITS | Referral Summary ---
Author Organization [facility] [place] [address] Address [address] [place] [address] Care Team Providers Care Manager Of Exhibitions And Collections Name Role Phone Dominique Escalera Primary Care Provider +1- [phone] Allergies No known active allergies Active Problems [...] on file Legal Sex Female 7:15 PM UNDERGROUND ELECTRICIAN Gender Identity Not on file Sexual Orientation Not on file Last Filed Vital Signs Vital Sign Reading Time Taken Comments Blood Pressure 137/88 08/24/2023 11:00 PM UNDERGROUND ELECTRICIAN Pulse 103 08/24/2023 11:00 PM UNDERGROUND ELECTRICIAN Temperature 36.9 C (98.4 F) 08/24/2023 11:00 PM UNDERGROUND ELECTRICIAN Respiratory Rate 18 08/24/2023 8:13 PM UNDERGROUND ELECTRICIAN Oxygen Saturation 99% 08/24/2023 11:00 PM UNDERGROUND ELECTRICIAN Inhaled Oxygen Concentration - - Weight 52 kg (114 lb 10.2 oz) 08/24/2023 8:13 PM UNDERGROUND ELECTRICIAN Height 151.1 cm (4' 11.5 ) 07/23/2016 9:00 AM CD T Body Mass Index - - Plan of Treatment Not on file Insurance [facility] ANTHEM ACCESS CHOICE Care Teams Manager Of Exhibitions And Collections Relationship Specialty Start Date End Date Dominique Escalera PA [address] [place] [address] PCP - General Internal Medicine 07/31/19
--- OUTSIDE RECORDS SUMMARY | 2025-03-04 09:49 | XMS_ITS | Clinical Summary ---
Author Organization [facility] Address [address] [place] [address] Care Team Providers Care Senior Naval Parachutist Name Role Phone None, Provider MD Primary Care Provider Unavaila ble Allergies No known active allergies Social History Tobacco Use Types Packs/Day Years Used Date Smoking Tobacco: Never Assessed Comments Unknown Sex and Gender Information Value Date Recorded Sex Assigned at Not on file Legal Sex Female 7:42 PM INTERNAL GRINDER SET UP OPERATOR Gender Identity Not on file Sexual Orientation Not on file Last Filed Vital Signs Vital Sign Reading Time Taken Comments Blood Pressure 130/94 12/06/2022 7:48 PM INTERNAL GRINDER SET UP OPERATOR Pulse 106 12/06/2022 7:48 PM INTERNAL GRINDER SET UP OPERATOR Temperature 36.6 C (97.9 F) 12/06/2022 7:48 PM INTERNAL GRINDER SET UP OPERATOR Respiratory Rate 20 12/06/2022 7:48 PM INTERNAL GRINDER SET UP OPERATOR Oxygen Saturation 98% 12/06/2022 7:48 PM INTERNAL GRINDER SET UP OPERATOR Inhaled Oxygen Concentration - - Weight 45.4 kg (100 lb) 12/06/2022 7:48 PM INTERNAL GRINDER SET UP OPERATOR Height 154.9 cm (5' 1 ) 12/06/2022 7:48 PM INTERNAL GRINDER SET UP OPERATOR Body Mass Index 18.89 12/06/2022 7:48 PM INTERNAL GRINDER SET UP OPERATOR Plan of Treatment Health Maintenance Due Date [...] age to complete this topic Care Teams Senior Naval Parachutist Relationship Specialty Start Date End Date None, Provider, PCP - General UNKNOWN PHYSICIAN SPECIALTY 12/06/22
--- NOTE | 2025-03-04 10:19 | ED.GENADULT ---
HPI - General Adult General Chief complaint: Urogenital-Female Stated complaint: UTI Source: patient Mode of arrival: ambulatory Limitations: no limitations History of Present Illness HPI narrative: patient is a 24-year-old white female with history of reflux kidney disease gets multiple urinary tract infections. Complains of dysuria and back pain for last week urinary frequency and she thinks she has another urinary tract infection. Otherwise denies fever cough runny nose sore throat shortness of breath swelling lumps or bumps bleeding or bruising dizziness lightheadedness weakness or numbness or any other complaints. She says she is not sexually active and can not be . She comes in with her 9-month-old child. Related Data Allergies Allergy/AdvReac Type Severity Reaction Status Date / Time No Known Allergies Allergy Mild Verified 03/04/25 09:13 Review of Systems Review of Systems: All systems reviewed & are unremarkable except as noted in HPI and below PMFSH Past Medical History Medical History History of strep sore throat Congenital vkpovt-ggbcsze-talur reflux Surgical History Surgical History S/P tonsillectomy and adenoidectomy Family History Family History Father Hypertension Heart disease Mother Asthma Social History Social History Tobacco type: e-cigarettes/vaping Alcohol intake: never Substance use: never Living arrangements: with family Gender identity (if verbalized by the patient): Female Exam Narrative: White female patient with no apparent distress. Head normocephalic, atraumatic. Eyes conjunctiva pink sclera nonicteric. Extraocular movements are intact. Ears externally normal. Back is nontender. Lungs are clear. Heart is regular rate and rhythm without murmurs gallops or rubs. Chest wall nontender. Abdomen is soft and Has mild suprapubic tenderness. She has no hepatosplenomegaly or masses no CVA tenderness no abdominal bruits. Extremities no cyanosis clubbing or edema. Skin is warm and dry without rashes or lesions. Neurological patient is alert and oriented x4. Motor and sensory grossly intact. Gait is normal. Course Vital Signs Vital signs: Vital Signs Temperature 36.3 C L 03/04/25 08:44 Pulse Rate 99 03/04/25 08:44 Respiratory Rate 16 03/04/25 08:44 Blood Pressure 135/88 03/04/25 08:44 Pulse Oximetry 99 03/04/25 08:44 Oxygen Delivery Room Air 03/04/25 08:44 Temperature 36.3 C L 03/04/25 08:44 Pulse Rate 99 03/04/25 08:44 Respiratory Rate 16 03/04/25 08:44 Blood Pressure 135/88 03/04/25 08:44 Pulse Oximetry 99 03/04/25 08:44 Oxygen Delivery Room Air 03/04/25 08:44 Medical Decision Making MDM Narrative Medical decision making narrative: Patient was placed in Room # 3 History and physical was performed. Urinalysis consistent with a UTI Independent Historian: patient External Source Review: Differential Dx includes but not limited to: urinary tract infection cystitis Medications were Reviewed: Independently Interpreted by me: labs independently interpreted by me. Meds, treatment, ED course: Social Situation Impacting Patients Care: reflux kidney disease Shared decision Making: evaluation was discussed all questions were asked and answered patient agreed with the plan she would follow up with Dr. Haji her primary care provider and get a referral to urologist or machine clerical verifier to discuss preventive treatment for her frequent UTIs. DISCHARGE DIAGNOSIS: acute urinary tract infection DISPOSITION: discharge home CONDITION AT DISCHARGE: stable Vital Signs Vital Signs: Vital Signs Temperature 36.3 C L 03/04/25 08:44 Pulse Rate 99 03/04/25 08:44 Respiratory Rate 16 03/04/25 08:44 Blood Pressure 135/88 03/04/25 08:44 Pulse Oximetry 99 03/04/25 08:44 Oxygen Delivery Room Air 03/04/25 08:44 Temperature 36.3 C L 03/04/25 08:44 Pulse Rate 99 03/04/25 08:44 Respiratory Rate 16 03/04/25 08:44 Blood Pressure 135/88 03/04/25 08:44 Pulse Oximetry 99 03/04/25 08:44 Oxygen Delivery Room Air 03/04/25 08:44 Lab Data Labs: Lab Results 03/04/25 Range/Units 08:56 Urine Color Light yellow (Yellow) Urine Appearance Turbid A (Clear) Urine pH 6.0 (5.0-8.0) Ur Specific [place] 1.020 (1.010-1.020) Urine Protein 2+ H (Negative) Urine Glucose (UA) Negative (Negative) Urine Ketones Negative (Negative) Ur Blood (Man) 3+ H (Negative) Urine Nitrate Negative (Negative) Urine Bilirubin Negative (Negative) Urine Urobilinogen 0.2 (0.2-1.0) mg/dL Leukocyte Esterase Rfl 3+ H (Negative) YEIMY/UL Urine RBC 11-20 H (0-2) /hpf Urine WBC >100 (0-3) /hpf Ur Squamous Epith Cells Moderate H (Few) /hpf Urine Bacteria Trace (None) /hpf Discharge Plan Discharge Clinical Impression: Urinary tract infection Qualifiers: Urinary tract infection type: acute cystitis Hematuria presence: without hematuria Qualified Code(s): N30.00 - Acute cystitis without hematuria Patient Disposition: Home Condition: Stable Instructions: Urinary Tract Infection in Women (ED) Additional Instructions: cephalexin 250 mg 3 times a day for 7 days. Pyridium 200 mg 3 times a day for 2 days with food. Increase her fluids by mouth discussed with your primary care provider Dr. Haji about per medications to prevent your urinary tract infections and possibly seeing machine clerical verifier or urologist. Return if you get worse or develops any new symptoms. Patient Language: [place] Prescriptions: New cephalexin 250 mg capsule 250 mg PO TID 7 Days Qty: 21 0RF phenazopyridine [Pyridium] 200 mg tablet 200 mg PO TID 2 Days Qty: 6 0RF No Action oseltamivir [Tamiflu] 75 mg capsule 75 mg PO BID 5 Days Qty: 10 0RF Follow-up/Referrals: Hector Douglass MD [Primary Care Provider] - Time of Disposition: 10:41
[2025-03-04 10:43] VITALS: BP 135/88; PULSE 99; RESP 16; TEMP 36.3; O2SAT 99
== END 2025-03-04 10:43 | disposition home or self-care (01) ==
PROVIDERS: Emergency Provider Emergency Medicine; PCP Family Medicine Adolescent Medicine
DX: N30.00 Acute cystitis without hematuria (principal)
CPT/HCPCS: 81001; 99283

== ENCOUNTER 2025-03-22 11:21 | Outpatient (CLI) | payer BC, SELFPAY ==
--- OUTSIDE RECORDS SUMMARY | 2025-03-22 11:23 | XMS_ITS | Clinical Summary ---
Author Organization [facility] Address [address] [facility] [place] [address] Phone Care Team Providers Care Dual Rate Supervisor Name Role Phone Unavailable Primary Care Provider Unavailabl e Allergies No known active allergies Medications vits15/iron/folic /dss ( VIT 67-XUUK-ZDIDK-DSS ORAL) Take by mouth daily. Active famotidine [...] Encounters Date Type Department Care Team Description 03/12/2025 External Device Data [facility] ABSTRACTION Provider, Abstract 2025 External Device Data [facility] ABSTRACTION Provider, Abstract 2025 External Device Data [facility] ABSTRACTION Provider, Abstract 03/06/2025 External Device Data [facility] ABSTRACTION Provider, Abstract [...] 7:46 PM CDT Height 154.9 cm (5' 1) 05/24/2024 7:46 PM CDT Body Mass Index [...] Subscriber Plan / Payer (Ef fective 2024-Present) Name:KaiaCarline Mccartney Relation to Subscriber:Self Name:Carline Marti Payer ID:[id number] (NAIC) Type:[facility] Address: [address] OUT OF [place] RX CABRALES PLANS (INTERNAL) [facility] Internal Plans Advance Directives For more information, please contact: [phone] * Full Code (Latest Code Status on [...]
--- OUTSIDE RECORDS SUMMARY | 2025-03-22 11:23 | XMS_ITS | Clinical Summary ---
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5) 07/23/2016 9:00 AM CD T Body Mass [...] Regular Well Visit/Exam 18-64 2020 Influenza Vaccine (Season Ended) 2025 07/23/20 16, 10/26/2005 Hepatitis B Screening Completed 06/27/2003 , 2002, 2002 Pneumococcal vaccine <65 Completed 003, 2002, 2002, Additional history exists Varicella Vaccines Completed 07/08/2006, 06/27/2003 Insurance ANTHEM ACCESS ANTHEM ACCESS CHOICE Care Teams Public Works Manager Relationship Specialty Start Date End Date Dominique Escalera PA [address] [place] [address] PCP - General Internal Medicine 07/31/19
--- OUTSIDE RECORDS SUMMARY | 2025-03-22 11:23 | XMS_ITS | Clinical Summary ---
Author Organization [facility] Address [address] [place] [address] Care Team Providers Care Heat Curer Name Role Phone Unavailable Primary Care Provider Unavailabl e Source Comments [facility],non-owned Affiliates and Associated Physician Practices is amultiple site organization consisting of ambulatory clinics and hospital sitesin [place], [place], [place] and [place]. This disclosure is being madepursuant to the Care Everywhere program and may not contain all information available regarding this patient. 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
--- OUTSIDE RECORDS SUMMARY | 2025-03-22 11:24 | XMS_ITS | Referral Summary ---
Author Organization [facility] [address] Address [address] [place] [address] Care Team Providers Care Internal Auditor Name Role Phone Dominique Escalera Primary Care Provider [phone]- [phone] Allergies No known active allergies Active Problems [...] on file Legal Sex Female 7:15 PM APPLIED RESEARCH DIRECTOR Gender Identity Not on file Sexual Orientation Not on file Last Filed Vital Signs Vital Sign Reading Time Taken Comments Blood Pressure 137/88 08/24/2023 11:00 PM APPLIED RESEARCH DIRECTOR Pulse 103 08/24/2023 11:00 PM APPLIED RESEARCH DIRECTOR Temperature 36.9 C (98.4 F) 08/24/2023 11:00 PM APPLIED RESEARCH DIRECTOR Respiratory Rate 18 08/24/2023 8:13 PM APPLIED RESEARCH DIRECTOR Oxygen Saturation 99% 08/24/2023 11:00 PM APPLIED RESEARCH DIRECTOR Inhaled Oxygen Concentration - - Weight 52 kg (114 lb 10.2 oz) 08/24/2023 8:13 PM APPLIED RESEARCH DIRECTOR Height 151.1 cm (4' 11.5) 07/23/2016 9:00 AM CD T Body Mass Index - - Plan of Treatment Not on file Insurance [facility] ACCESS CHOICE Care Teams Internal Auditor Relationship Specialty Start Date End Date Dominique Escalera PA [address] [place] [address] PCP - General Internal Medicine 07/31/19
[2025-03-22 11:44] LABS: Basophils Absolute Auto 0.02 K/mm3 (0.00-0.10); Basophils Percent Auto 0.3 % (0.0-1.0); Eosinophils Absolute Auto 0.04 K/mm3 (0.02-0.50); Eosinophils Percent Auto 0.7 % (1.0-6.0); Hematocrit 37.6 % (35.0-49.0); Hemoglobin 11.4 g/dL (12.0-15.0); Immature Granulocyte Absolute 0.01 K/mm3 (0.00-0.00); Immature Granulocyte Percent A 0.2 % (0.0-0.0); Lymphocytes Absolute Auto 1.29 K/mm3 (1.10-4.50); Lymphocytes Percent Auto 21.3 % (18.0-42.0); Mean Corpuscular HGB Conc 30.3 g/dL (32-36); Mean Corpuscular Volume 75.8 fL (78.0-102.0); Mean Platelet Volume 10.3 fl (9.2-11.8); Monocytes Absolute Auto 0.46 K/mm3 (0.10-0.90); Monocytes Percent Auto 7.6 % (2.0-11.0); Neutrophils Absolute Auto 4.24 K/mm3 (1.70-7.20); Neutrophils Percent Auto 69.9 % (50.0-70.0); Platelet Count Result 348 K/mm3 (150-420); Red Blood Count 4.96 M/mm3 (4.20-5.40); White Blood Count 6.1 K/mm3 (4.8-10.8)
[2025-03-22 12:28] LABS: Alanine Aminotransferase 32 U/L (6-35); Albumin Level 4.8 g/dL (3.5-5.1); Alkaline Phosphatase 73 U/L (38-126); Anion Gap 8 mmol/L (4-12); Aspartate Amino Transferase 29 U/L (14-36); Bilirubin,Total 0.7 mg/dL (0.2-1.3); Blood Urea Nitrogen 10 mg/dL (7-17); Calcium 9.8 mg/dL (8.4-10.2); Carbon Dioxide 24 mmol/L (22-30); Chloride 105 mmol/L (98-107); Cholesterol 143 mg/dL (0-200); Estimated Glomerular Filt Rate > 60; Glucose 83 mg/dL (65-110); HDL Direct 65 mg/dL; LDL Cholesterol Calculated 65 mg/dL (<130); Osmolality Calculated 282 mOsm/kg (285-295); Potassium 4.1 mmol/L (3.4-5.0); Sodium 137 mmol/L (137-145); Total Protein 7.7 g/dL (6.3-8.2); Triglycerides 66 mg/dL (<150)
[2025-03-22 15:00] LABS: Hemoglobin A1C 4.7 % (<5.7)
== END 2025-03-22 11:22 | disposition home or self-care (01) ==
LOC: CHSLAB 11:21
PROVIDERS: PCP Nurse Practitioner Family; Visit Provider Nurse Practitioner Family
DX: Z00.00 Encounter for general adult medical examination without abnormal findings (principal)
CPT/HCPCS: 36415; 80053; 80061; 83036; 84443; 85025

== ENCOUNTER 2025-04-15 11:29 | Emergency (ER) | payer BC, OTHER, SELFPAY ==
[2025-04-15 11:30] VITALS: BP 155/91; PULSE 100; RESP 18; TEMP 36.6; O2SAT 97
--- NOTE | 2025-04-15 11:45 | ED_ITS ---
HPI - URI/Sore Throat General Chief Complaint: Upper Respiratory Infection Stated Complaint: sore throat Time Seen by Provider: 04/15/25 11:45 Source: patient Mode of arrival: ambulatory Limitations: no limitations History of Present Illness HPI Narrative: 25 years old white female came to the ED with sore throat, productive cough of clear sputum, nasal congestion, postnasal discharge started 4 days ago. Patient denies sick contact. She denies any fever or chills or nausea or vomiting. Related Data Allergies Allergy/AdvReac Type Severity Reaction Status Date / Time No Known Allergies Allergy Mild Verified 03/22/25 10:35 Review of Systems Review of Systems: All systems reviewed & are unremarkable except as noted in HPI and below PMFSH Past Medical History Medical History History of strep sore throat Congenital lbwyny-smqulem-ooein reflux Surgical History Surgical History S/P tonsillectomy and adenoidectomy Family History Family History Father Hypertension Heart disease Mother Asthma Hypertension Social History Social History Smoking status: Current some day smoker (vaping) Tobacco type: e-cigarettes/vaping Alcohol intake: current Alcohol use details: socially Substance use: never Do You Feel Safe in your Home?: Yes Lack of Transportation: No Lack of Food: Never True Current Housing: I Have Housing Concerned About Future Housing: No Difficulty Paying Gas/Electric Bills: No Difficulty Paying for Meds: No Living arrangements: with family Gender identity (if verbalized by the patient): Female Exam Narrative: General appearance: Well-developed, well-nourished Skin: Normal color Head: Normocephalic, nontraumatic Eyes: Clear conjunctiva ENT: Oropharyngeal erythema, nasal congestion, runny nose Neck: Supple, nontender Chest and respiratory: Airway patent, no respiratory distress, no accessory muscle use Heart: Regular rate/rhythm Neurologic: Alert and oriented ?3 Course Vital Signs Vital signs: Vital Signs Temperature 36.6 C 04/15/25 11:30 Pulse Rate 100 04/15/25 11:30 Respiratory Rate 18 04/15/25 11:30 Blood Pressure 155/91 H 04/15/25 11:30 Pulse Oximetry 97 04/15/25 11:30 Oxygen Delivery Room Air 04/15/25 11:30 Temperature 36.6 C 04/15/25 11:30 Pulse Rate 100 04/15/25 11:30 Respiratory Rate 18 04/15/25 11:30 Blood Pressure 155/91 H 04/15/25 11:30 Pulse Oximetry 97 04/15/25 11:30 Oxygen Delivery Room Air 04/15/25 11:30 MDM - URI/Sore Throat Lab Data Labs: Lab Results 04/15/25 Range/Units 11:45 Influenza A (RT-PCR) Pending Influenza B (RT-PCR) Pending RSV (RT-PCR) Pending SARS-CoV-2 RNA (RT-PCR) Pending Group A Strep (PCR) Pending Critical Care Time Critical Care Time Critical Care Time: No Discharge Plan Discharge Clinical Impression: Upper respiratory infection, viral Patient Disposition: Home Condition: Stable Instructions: Upper Respiratory Infection (ED) Additional Instructions: Return if symptoms are worsening , call your family physician for appointment, take Tyleno, ibuprofen as as needed for aches and pain, continue home medications. Get waro-yrp-ilsyais Afrin nasal spray and Robitussin cough and cold Patient Language: Cymraes Prescriptions: No Action cyclobenzaprine 10 mg tablet 10 mg PO TID PRN (Reason: muscle spasm) Qty: 60 0RF Follow-up/Referrals: Jessy Kinsey APRN [Primary Care Provider] -
--- NOTE | 2025-04-15 11:47 | PC.NURSE ---
Covid culture sent to lab
--- OUTSIDE RECORDS SUMMARY | 2025-04-15 11:54 | XMS_ITS | Clinical Summary ---
Author Organization [facility] Address [address] [place] [address] Phone Care Team Providers Care Trimmer Meat Name Role Phone Unavailable Primary Care Provider Unavailabl e Allergies No known active allergies Medications vits15/iron/folic /dss ( VIT [id number] ORAL) Take by mouth daily. Active famotidine [...] 2023 Severe pre-eclampsia in third trimester 05/28/20 Gestational hypertension, third trimester 2023 MFMtx(Jose Francisco)/OBH: pLTCS, PreE w SF, boy (nicu ) 05/23/2024 Encounters Date Type Department Care Team Description 04/09/2025 External Device Data [facility] ABSTRACTION Provider, Abstract 04/02/2025 External Device Data [facility] ABSTRACTION Provider, Abstract 03/26/2025 External Device Data [facility] ABSTRACTION Provider, Abstract 03/12/2025 External Device Data [facility] ABSTRACTION Provider, [...] Martinzie Mccartney Payer ID:[id number] (NAIC) Type:PPO Address: [address] OUT OF [facility] [employer] (INTERNAL) [facility] Internal Plans Advance Directives For more information, please contact: [phone] * Full Code (Latest Code Status on [...]
--- OUTSIDE RECORDS SUMMARY | 2025-04-15 11:54 | XMS_ITS | Data Portability ---
Author Organization [facility] Address [address] [place] [address] [place] [address] Assessment Encounter Date Assessment Date Assessment LastModified [...] recorded. Imaging US, obstetric, follow-up 2023 024 [address], [address], [place], [address], 20:10:07 US, doppler, umbilical artery velocimetry 2023 [address], [address], [place], [address], 4 20:10:07 US, obstetric, transvagina l 2023 [address], [address], [place], [address], 4 20:10:07 US, obstetric, limited 2023 024 [email or web address] [place], [address], [place], [address], 19:11:08 US, obstetric, transvagina l 2023 024 [email or web address] [place], [address], [place], [address], 4 19:11:08 Medication Orders None recorded. Patient TargetsNo targets recorded. Patient InstructionsNo instructions recorded. Reason for Referral None Reported. Results Created Date Observation Date Name Description Value Unit Range Abnormal Flag Note LastModifiedBy Organization Detail LastModifiedTime 05/18/20 24 05/18/2024 HEMAT OCRIT (HCT) HCT 37.6 % (based on docume nted legal sex) 34.0-4 5.0 Not Available [facility] (Lab) [address], [place], [address], 05/19/2024 15:57:55 05/18/20 24 05/18/2024 HEMOG LOBIN (HGB) HGB 12.1 g/dL (based on docume nted legal sex) 11.6-1 5.4 Not Available [facility] (Lab) [address] [place], [address], 05/19/2024 15:57:56 05/18/20 24 05/18/2024 GTT - GESTA MARGIE L SCREE N, ACOG OB glucose, 1 hour screen 151 mg/dL 70-135 high Not Available [facility] (Lab) [address] [place], [address], 05/19/2024 15:57:56 05/18/20 24 05/18/2024 HIV 1/2 ANTIG EN/AN TIBOD Y, REFLE X CONFI RMATI ON HIV antigen/anti body Nonrea ctive nonrea ctive HIV-1 antig en and HIV-1 /HIV- 2 antib odies were not detec nikhil. No labor atory evide nce of HIV infec tion. Not Available [facility] (Lab) [address], [place], [address], 05/19/2024 15:57:57 05/18/20 24 05/18/2024 RPR SCREE N, REFLE X TITER /CONF IRMAT ION RPR screen Nonrea ctive nonrea ctive Not Available [facility] (Lab) [address], [place], [address], 05/19/2024 15:57:57 05/21/20 24 05/21/2024 GTT - GESTA MARGIE L, 3 HOUR, ACOG glucose, fasting acog 80 mg/dL Not Available [facility] (Lab) [address], [place], [address], 05/24/2024 08:16:43 05/21/20 24 05/21/2024 GTT - GESTA MARGIE L, 3 HOUR, ACOG glucose, 1 hour acog 171 mg/dL 70-179 Not Available [facility] (Lab) [address], [place], [address], 05/24/2024 08:16:43 05/21/20 24 05/21/2024 GTT - GESTA MARGIE L, 3 HOUR, ACOG glucose, 2 hour acog 137 mg/dL 70-154 Not Available [facility] (Lab) [address], [place], [address], 05/24/2024 08:16:43 05/21/20 24 05/21/2024 GTT - GESTA MARGIE L, 3 HOUR, ACOG glucose, 3 hour acog 112 mg/dL 70-139 Not Available [facility] (Lab) [address], [place], [address], 05/24/2024 08:16:43 03/20/20 24 03/20/2024 US, obste tric, 2nd or 3rd trime ster No observ ation record ed. [email or web address] [place] [address], [place], [address], 03/20/2024 12:55:14 03/20/20 24 03/20/2024 US, obste tric, trans vagin al No observ ation record ed. [email or web address] [place] [address], [place], [address], 03/20/2024 12:55:05 03/20/20 24 03/20/2024 US, obste tric, 2nd or 3rd trime ster No observ ation record ed. GEENA [address], [place], [address], 05/11/2024 13:39:18 03/20/20 24 03/20/2024 US, obste tric, 2nd or 3rd trime ster No observ ation record ed. [email or web address] [address], [place], [address], 03/21/2024 07:32:38 04/05/20 24 04/05/2024 US, obste tric, limit ed No observ ation record ed. [email or web address] [place] [address], [place], [address], 04/05/2024 16:43:01 04/05/20 24 04/05/2024 US, obste tric, trans vagin al No observ ation record ed. [email or web address] [place] [address], [place], [address], 04/05/2024 16:42:49 04/05/20 24 04/05/2024 US, obste tric, limit ed No observ ation record ed. [email or web address] [address], [place], [address], 04/05/2024 19:38:22 04/18/20 24 04/18/2024 US, obste tric, follo w-up No observ ation record ed. [facility] [address], [place], [address], 04/18/2024 18:19:22 04/18/20 24 04/18/2024 US, doppl er, umbil ical arter y veloc imetr y No observ ation record ed. [facility] [address], [place], [address], 04/18/2024 18:19:36 04/18/20 24 04/18/2024 US, obste tric, trans vagin al No observ ation record ed. [facility] [address], [place], [address], 04/18/2024 18:19:48 04/18/20 24 04/18/2024 US, obste tric, follo w-up No observ ation record ed. [email or web address] [address] [facility], [place], [address], 04/19/2024 00:12:16 04/27/20 24 04/27/2024 US, echoc ardio gram No observ ation record ed. [facility] [address], [place], [address], 05/11/2024 13:39:17 05/01/20 24 05/01/2024 US, obste tric, follo w-up No observ ation record ed. [facility] [address], [place], [address], 05/02/2024 16:22:30 05/01/20 24 05/01/2024 US, obste tric, follo w-up No observ ation record ed. [email or web address] [facility] [address], [place], [address], 05/01/2024 11:31:42 05/08/20 24 05/08/2024 US, obste tric, follo w-up No observ ation record ed. [email or web address], [place], [address], 05/08/2024 14:23:50 05/08/20 24 05/08/2024 non-s tress test No observ ation record ed. [email or web address] [facility] [address], [place], [address], 05/18/2024 17:20:47 05/17/20 24 05/16/2024 US, obste tric, follo w-up No observ ation record ed. [email or web address] [facility] [address], [place], [address], 05/18/2024 11:08:47 05/22/20 24 05/22/2024 US, obste tric, follo w-up No observ ation record ed. [email or web address] [facility] [place], [address], 05/28/2024 11:19:44 05/22/20 24 05/22/2024 US, obste tric, follo w-up No observ ation record ed. [email or web address] [address], [place], [address], 05/25/2024 11:05:41 05/22/20 24 05/22/2024 US, obste tric, follo w-up No observ ation record ed. [email or web address] [facility] [place], [place], [address], 05/25/2024 11:05:35 05/23/20 24 05/23/2024 imagi ng/di agnos tic resul t No observ ation record ed. [email or web address] [facility] [address], [place], [address], 05/24/2024 11:51:05 05/24/2005/24/2024 US, obste tric No observ ation record ed. [email or web address] [facility] [place] [address], [place], [address], 05/25/2024 10:42:15 05/28/2005/28/2024 US, obste tric No observ ation record ed. [email or web address] [facility] [address], [place], [address], 05/30/2024 10:40:01 Result Notes None recorded. Problems Name Problem SNOMED Code Status Onset Date Resolution Date Notes Provider Name and Address Organization Details Recorded Time Vesicour eteric reflux Active 2023 ppx keflex due to frequent UTIs Rosio cota, [facility] 4 16:23:34 Family history of Cardiomy opathy 266512018 Active 2023 patient' s father with hypertro phic cardiomy opathy NATALIIA CRUZ MD [address], [place], [address], [facility] 4 21:52:17 Pregnanc y 16091924 Completed 202308/09/2024 Ricci Martin null, [facility] 4 14:14:15 Vesicour eteric reflux 775262612 Completed 2023 ppx keflex due to frequent UTIs Rosio cota [facility] 4 16:23:34 Family history of Congenit al heart disease 490040517 Completed pt's father with HCM; will order maternal echo Rosio cota, [facility] 4 16:23:34 Family history of Congenit al heart disease 230237244 Active pt's father with HCM; will order maternal echo Rosio cota, [facility] 4 16:23:34 growth restrict ion 81225052 Completed 9.5% with elevated UADs at 24 weeks Rosio Juarez null, [facility] 4 16:23:34 growth restrict ion 08388516 Active 9.5% with elevated UADs at 24 weeks Rosio Juarez null, [facility] 4 16:23:34 Pregnanc y-induce d hyperten halie 50690376 Completed 2023 twice weekly antenata l testing, weekly labs, 37 week inductio n NATALIIA CRUZ MD [address], [place], [address], [facility] 4 14:20:41 Problem Notes None recorded. Medical Equipment None Reported. [...] Updated DateTime 04/05/2024 155.58 cm 22.3 kg/m2 41074.49 203 g 131 mm[Hg] 84 mm[Hg] Luanne Moncada [facility] 13:06:04 Date Recorded Body weight Provider Name an d Address Organization Details Last Updated DateTime 04/18/2024 66943.97546 g Arthur MORAES [address], [place], [address], [facility] 04/18/2024 17:46:42 Date Recorded Body height Body mass index (BMI) Systolic blood pressure Diastolic blood pressure Provider Name and Address Organization Details Last Updated DateTime 04/18/2024 155.58 cm 22.7 kg/m2 134 mm[Hg] 85 mm[Hg] Enriqueta [facility] 04/18/2024 17:22:54 Date Recorded Body height Body mass index (BMI) Body weight Systolic blood pressure Diastolic blood pressure Systolic blood pressure Diastolic blood pressure Provider Name and Address Organization Details Last Updated DateTime 155.58 cm 22.7 kg/m2 82193.4 g 183 mm[Hg] 107 mm[Hg] 140 mm[Hg] 90 mm[Hg] [facility] 11:32:11 Social History Question Answer Notes [...] SNOMED-CT Code Diagnosis ICD10 Code Diagnosis Note [id number] Kenton Carmichael MD [place] [address] [address] 12/07/2023 15:57:07 12/07/2023 16:45:33 screening 235894127 Z36.87 Z3A.01 [id number] NATALIIA CRUZ MD [place] [address] [address] 12/07/2023 16:07:50 12/13/2023 09:00:23 test positive 924238838 Z32.01 1. Exam today within normal limits.2. Ultrasound today shows GS and YS but no FP; will repeat US in 1 week3. GC/Rohan a testing done: will f/u as indicated. 4. ACOG guidelines and plan of care for reviewed with patient. All questions answered.5 . Return to office in 4 weeks for new OB visit6. Genetic screening: desires. Family his tory of Congenital heart disease 084286080 Z82.79 - patient's father with hypertroph ic cardiomyop athy- plan for maternal echo to evaluate patient Vesicoureteric reflux 19 7481711 N13.9 - pending new OB urine culture, consider ppx abx due to history of recurrent UTIs [id number] Kenton Carmichael MD [place] [address],[place] [address] 12/15/2023 15:53:13 12/15/2023 16:30:54 [id number] NATALIIA CRUZ MD [place] [address],[place] [address] 12/28/2023 14:23:44 01/04/2024 15:23:53 Recurrent urinary tract infection 641549015 N39.0 Family his tory of Cardiomyopathy 443431211 Z82.49 Vesicoureteric reflux 19 4599200 N13.9 - pending new OB urine culture, consider ppx abx due to history of recurrent UTIs Gestation period, 8 weeks 39273359 Z3A.08 [id number] Kenton Carmichael MD [place] [address],[place] [address] 01/23/2024 13:49:16 01/23/2024 14:31:16 screening 722173998 Z36.82 Gestation period, 11 weeks 63220557 Z3A.11 [id number] NATALIIA CRUZ MD [place] [address],[place] [address] 01/23/2024 13:50:40 01/23/2024 16:01:12 Vesicoureteric reflux 158955248 N13.9 Low back p ain in 7055750944 106 O26.899 Gestation period, 11 weeks 74263287 Z3A.11 Recurrent urinary tract infection 545122392 N39.0 [id number] NATALIIA CRUZ MD [place] [address],[place] [address] 02/20/2024 13:53:30 02/20/2024 15:20:10 Family history of Cardiomyopathy 885644720 Z82.49 Vesicoureteric reflux 19 2942078 N13.9 Gestation period, 15 weeks 9227546 Z3A.15 [id number] Kenton Carmichael MD [place] [address],[place] [address] 03/20/2024 10:58:01 03/20/2024 14:27:44 screening for malformation 118316242 Z36.3 Z3A.20 [id number] NATALIIA CRUZ MD [place] [address],[place] [address] 03/20/2024 10:59:32 03/20/2024 14:02:18 Family history of Cardiomyopathy 898705253 Z82.49 Family his tory of Congenital heart disease 265165139 Z82.79 - patient's father with hypertroph ic cardiomyop athy- plan for maternal echo to evaluate patient Short cerv ical length in 256167751 O26.879 Gestation period, 20 weeks 02067028 Z3A.20 [id number] Kenton Carmichael MD [place] [address],[place] [address] 04/05/2024 12:29:19 04/05/2024 13:34:49 Routine care 807922379 Z34.02 [id number] Kenton Carmichael MD [place] [address],[place] [address] 04/05/2024 12:34:44 04/05/2024 13:54:34 Short cervical length in 606193500 O26.872 Z3A.22 [id number] Kenton Carmichael MD [place] [address],[place] [address] 04/18/2024 16:24:13 04/18/2024 17:12:56 Small for gestational age fetus 137261274 O36.5920 O26.879 Z3A.24 [id number] NATALIIA CRUZ MD [place] [address],[facility] [address] 04/18/2024 16:32:26 04/19/2024 08:28:36 Family history of Cardiomyopathy 387527726 Z82.49 Family his tory of Congenital heart disease 342255968 Z82.79 - patient's father with hypertroph ic cardiomyop athy- plan for maternal echo to evaluate patient grow th restriction 53905843 O36.5999 Vesicoureteric reflux 19 8315270 N13.9 Gestation period, 24 weeks 523028218 Z3A.24 [id number] NATALIIA CRUZ MD [place] [address],[facility] [place] [address] 05/18/2024 10:56:25 05/22/2024 03:59:04 Family history of Cardiomyopathy 113595300 Z82.49 Family his tory of Congenital heart disease 722246202 Z82.79 - patient's father with hypertroph ic cardiomyop athy- plan for maternal echo to evaluate patient grow th restriction 12852116 O36.5999 - followed by MFM- weekly BPP/UADs, serial growth US - induced hypertension 65231479 O13.9 - twice weekly testing- weekly labs- 37 week induction of labor if stable- discussed risk of progressio n to preeclamps ia and warning signs Gestation period, 28 weeks 30174072 Z3A.28 Health Concerns Section Related Observation LastModified by Organization Detai ls LastModified Time None Recorded Concern Status LastModified by Organization Details LastModified Time None Recorded Advance Directives Directive None Recorded Payers Insurance Date Sequence Insurance Name Policy Number Policy Nash Covered Member ID Nash Member ID Guarantor Name 12/12/2024 1 REX CAMPBELL (PPO) [id number] Matt E [place] [id number] Carline [place] 06/27/2024 3 MED[place] Carline Marti [id number] Carline Marti 07/18/2024 1 *SELF PAY* Ak justus Marti 12/12/2024 2 [facility] (MEDICAID HMO) [id number] Carline Marti [id number] Carline Marti 12/12/2024 1 [facility] [id number] Matt Marti [id number] Carline Marti OBGyn Episode Ob Episode Information Episode Created Date Number of Fetuses Patient Bloodtype Patient rh Status Prepregnancy Weight lbs Domestic Partner Domestic Partner Phone Father Name Gang Supervisor Status 12/30/19 24 1 B Positive 113 CLOSED Fetus Data First Name Last Name Admitted to NICU Weight (g) Sex Living Outcome Pediatric Complications Fetus ID Race Codes Race Delivery Type 1039.85 966 M Prematur e [id number] Primary Problems Problem Notes MFM referral sent 04/23 [facility]05/16 US, NST & Office visit05/30 US, NST & OV Problem Name Start Date End Date Resolution Snomed Code Not e growth restriction 39798 007 9.5% with elevated UADs at 24 weeks -induced hypertension 05/18/2024 98841954 twice weekly testing, weekly labs, 37 week induction Vesicoureteric reflux 12/12/2023 7583592 07 ppx keflex due to frequent UTIs Family history of Congenital heart disease 161950705 pt' s father with HCM; will order maternal echo Mejia Calculation Initial Mejia Date Initial Exam Date Initial Exam Provider Initial Ultrasound Date Last Menstrual Period Date Ultra Sound Weeks Gestation 08/07/2024 12/30/2023 12/15/2023 6 Eighteen To Twenty Week Mejia Update Ultra Sound Date Fundal Height At Umbil Quickening Date Ultra Sound Latest Weeks Gestation Final Mejia Confirmed By Final Mejia Confirmed Date Final Mejia Date Ultra Sound Latest Days Gestation 0 01/04/2024 08/07/20 24 0 Pre- Flowsheet Flowsheet Date 12/28/2023 Elaine Score Blood Edema Fundus Height Fundus Units Glucose Ketones Leukocytes Nitrite Labor Signs Protein Cervic Dilation Cervic Effacement Cervic Station Type Weight in lbs Pre/Post Dialysis Refused BP Diastolic BP Location Tested BP Systolic BP Type Fetus Heart Rate Present Fetus Movement A No Comments Patient presents to tonsil hospital care. uncomplicated thus far. No nausea or vomiting, cramping or bleeding. Doing well overall. PMH significant for vesicoureteral reflux since childhood with hx of frequent UTIs. Discussed ppx antibiotics to avoid pyelonephritis in given hx of recurrent UTIs. Family hx significant for patient's father with hypertrophic cardiomyopathy; plan for maternal echo as patient has not been evaluated. RTC at 12 weeks for NT/NB US. Flowsheet Date 01/23/2024 Elaine Score Blood Edema Fundus Height Fundus Units Glucose Ketones Leukocytes Nitrite Labor Signs Protein Cervic Dilation Cervic Effacement Cervic Station Type Weight in lbs Pre/Post Dialysis Refused BP Diastolic BP Location Tested BP Systolic BP Type Fetus Heart Rate Present Fetus Movement Comments Flowsheet Date 01/23/2024 Elaine Score Blood Edema Fundus Height Fundus Units Glucose Ketones Leukocytes Nitrite Labor Signs Protein Cervic Dilation Cervic Effacement Cervic Station Type Weight in lbs Pre/Post Dialysis Refused Weight 116.798451354128 BP Diastolic BP Location Tested BP Systolic BP Type 70 114 Fetus Heart Rate Present A 164 Fetus Movement Comments Doing well, nausea minimal. Strained her back, will send flexeril. Was diagnosed with UTI while in ER yesterday, taking treatment dose keflex. Did not start suppression, instructed to start after she finishes treatment. NIPT LR. Gender given in envelope. NT/NB wnl. RTC 4 weeks. Flowsheet Date 02/20/2024 Elaine Score Blood Edema Fundus Height Fundus Units Glucose Ketones Leukocytes Nitrite Labor Signs Protein Cervic Dilation Cervic Effacement Cervic Station Type Weight in lbs Pre/Post Dialysis Refused Weight 117.870138081927 BP Diastolic BP Location Tested BP Systolic BP Type 83 127 Fetus Heart Rate Present A 160 Fetus Movement A No Comments Doing well, some fatigue. No movement yet. Still having some low back pain, flexeril did not help. On keflex suppression. Ordered maternal echo today, due to hx of hypertrophic cardiomyopathy in patient's father. Discussed anatomy US for next visit. RTC 4 weeks. Flowsheet Date 03/20/2024 Elaine Score Blood Edema Fundus Height Fundus Units Glucose Ketones Leukocytes Nitrite Labor Signs Protein Cervic Dilation Cervic Effacement Cervic Station Type Weight in lbs Pre/Post Dialysis Refused BP Diastolic BP Location Tested BP Systolic BP Type Fetus Heart Rate Present Fetus Movement Comments Flowsheet Date 03/20/2024 Elaine Score Blood Edema Fundus Height Fundus Units Glucose Ketones Leukocytes Nitrite Labor Signs Protein Cervic Dilation Cervic Effacement Cervic Station Type Weight in lbs Pre/Post Dialysis Refused Weight 117.239795891838 BP Diastolic BP Location Tested BP Systolic BP Type 77 125 Fetus Heart Rate Present A 149 Fetus Movement A Yes Comments Doign well. Not feeling much movement. No cramping or bleeding. Anatomy complete and normal today aside from borderline shortened cervical length with valsalva. Will repeat cervical length in 2 weeks. Will resend order for maternal echo. RTC 2 weeks. Flowsheet Date 04/05/2024 Elaine Score Blood Edema Fundus Height Fundus Units Glucose Ketones Leukocytes Nitrite Labor Signs Protein Cervic Dilation Cervic Effacement Cervic Station Type Weight in lbs Pre/Post Dialysis Refused BP Diastolic BP Location Tested BP Systolic BP Type Fetus Heart Rate Present Fetus Movement Comments Flowsheet Date 04/05/2024 Elaine Score Blood Edema Fundus Height Fundus Units Glucose Ketones Leukocytes Nitrite Labor Signs Protein Cervic Dilation Cervic Effacement Cervic Station none 22 Type Weight in lbs Pre/Post Dialysis Refused Weight 119.363967041962 BP Diastolic BP Location Tested BP Systolic BP Type 84 L arm 131 sitting Fetus Heart Rate Present A 145 Fetus Movement A Yes Comments cervical length measurement is much improved, to repeat in 2 weeks with estimated weight, some below average growth. Very small mother, likely constitutional, no contractions, loss of fluid, vaginal bleeding. No pelvic pressure. Flowsheet Date 04/18/2024 Elaine Score Blood Edema Fundus Height Fundus Units Glucose Ketones Leukocytes Nitrite Labor Signs Protein Cervic Dilation Cervic Effacement Cervic Station Type Weight in lbs Pre/Post Dialysis Refused BP Diastolic BP Location Tested BP Systolic BP Type Fetus Heart Rate Present Fetus Movement Comments Flowsheet Date 04/18/2024 Elaine Score Blood Edema Fundus Height Fundus Units Glucose Ketones Leukocytes Nitrite Labor Signs Protein Cervic Dilation Cervic Effacement Cervic Station Type Weight in lbs Pre/Post Dialysis Refused Weight 121.761535707006 BP Diastolic BP Location Tested BP Systolic BP Type 85 134 Fetus Heart Rate Present A 142 Fetus Movement A Yes Comments Doing well, no cramping or b leeding. Baby active. Growth US today demonstrates EFW 9.5%, with elevated UADs. Discussed growth restriction, will send referral to [facility] for evaluation. Cervical length wnl. Back pain somewhat improved, urine culture negative from hospital visit earlier this week. Discussed conservative measures. Discussed GCT and labs for next visit. Maternal echo scheduled. RTC 4 weeks. Flowsheet Date 05/18/2024 Elaine Score Blood Edema Fundus Height Fundus Units Glucose Ketones Leukocytes Nitrite Labor Signs Protein Cervic Dilation Cervic Effacement Cervic Station Type Weight in lbs Pre/Post Dialysis Refused Weight 121.554028571125 BP Diastolic BP Location Tested BP Systolic BP Type 107 183 90 140 Fetus Heart Rate Present A 150 Fetus Movement A Yes Comments Good movement. No cram ping or bleeding. Recently saw [facility], who confirmed FGR with elevated UADs. Patient desires transfer of [facility] care to [facility], will change referral. Also discussed new diagnosis of gestational hypertension and implications for the remaining . Would recommend twice weekly testing (ok to split between [facility] and [facility]), weekly labwork, as well as 37 week induction of labor. Warning signs of preeclampsia reviewed. Also discussed that this may be related to FGR. Recent labwork wnl. GCT and 28 week labs today. Will also order PC ratio. RTC 1 week for testing. Menstrual History Last Menstrual Date Menses Monthly On Bcp Conception Prior Menses Frequency Hcg Plus Date Menarche Onset Age Genetic Screening And Infection History Question Response Note Mental Retardation/Autism false Patient's Age Will Be 35 Years Or Older At Estim ated Date of Delivery false Thalassemia (Afghan, Dutch, Mediterranean, Or Background): MCV < 80 false Neural Tube Defect (Meningomyelocele, Spina Bifi da, Or Anencephaly) false Congenital Heart Defect false Down Syndrome false Jarek-Sachs (eg, Mormon, Cajun, Kinyarwanda-Sanders) f alse Alia Disease false Sickle Cell Disease Or Trait () false Hemophilia Or Other Blood Disorders false Muscular Dystrophy false Cystic Fibrosis false Anoop's Chorea false Intellectual Disability/Autism false If Yes, Was Person Tested For Fragile X? false Other Inherited Genetic Or Chromosomal Disorder false Maternal Metabolic Disorder (eg, Type 1 Diabetes , PKU) false Patient Or Baby's Father Had A Child With Defects Not Listed Above false Recurrent Loss, Or A Stillbirth false Medications (including Suppl ements, Vitamins, Herbs, OTC Drugs), Illicit/Recreational Drugs, Alcohol false If Yes, Agent(s) And Strength/Dosage false Any Other Genetic History false Live With Someone With TB Or Exposed To TB false Patient Or Partner Has History Of Genital Herpes false Rash Or Viral Illness Since Last Menstrual Perio d false History Of STD, Gonorrhea, Chlamydia, HPV, Syphi lis false Other Infection History false History of HIV false History of Hepatitis false Prior GBS-infected child false Hemoglobinopathy Or Carrier false Other Structural Defect false Recent Travel History Outside of Country false Delivery Information Delivery Date Delivery Type Labor Anesthesia Weeks Gestation Incision Type Labor Labor Length Hrs Delivered By Post Complications Tubal Sterilization Discharge Date Comments 4 Regional-Sp inal 30.2 Low Transvers e Discharge Information Feeding Method Contraceptive Method Maternal HG B and HCT Levels
--- OUTSIDE RECORDS SUMMARY | 2025-04-15 11:54 | XMS_ITS | Clinical Summary ---
Author Organization [facility] [place] [address] Address [address] [place] [address] Care Team Providers Care Vamp Marker Name Role Phone Dominique Escalera Primary Care Provider +1- [phone] Allergies No known active allergies Active Problems [...] on file Legal Sex Female 7:15 PM NURSING OFFICER Gender Identity Not on file Sexual Orientation Not on file Last Filed Vital Signs Vital Sign Reading Time Taken Comments Blood Pressure 137/88 08/24/2023 11:00 PM NURSING OFFICER Pulse 103 08/24/2023 11:00 PM NURSING OFFICER Temperature 36.9 C (98.4 F) 08/24/2023 11:00 PM NURSING OFFICER Respiratory Rate 18 08/24/2023 8:13 PM NURSING OFFICER Oxygen Saturation 99% 08/24/2023 11:00 PM NURSING OFFICER Inhaled Oxygen Concentration - - Weight 52 kg (114 lb 10.2 oz) 08/24/2023 8:13 PM NURSING OFFICER Height 151.1 cm (4' 11.5) 07/23/2016 9:00 [...] ANTHEM ACCESS ANTHEM ACCESS CHOICE Care Teams Vamp Marker Relationship Specialty Start Date End Date Dominique Escalera PA [address] [place] [address] PCP - General Internal Medicine 07/31/19
--- OUTSIDE RECORDS SUMMARY | 2025-04-15 11:54 | XMS_ITS | Clinical Summary ---
Author Organization [facility] Address [address] [facility] [place] [address] Care Team Providers Care Book Reviewer Name Role Phone Unavailable Primary Care Provider Unavailabl e Source Comments [facility],non-owned Affiliates and Associated Physician Practices is amultiple site organization consisting of ambulatory clinics and hospital sitesin [place], [place], [place] and [place]. This disclosure is being madepursuant to the Care Everywhere program and may not contain all information available regarding this patient. Last updated 18.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 Not on file Not on [...] Health Maintenance Due Date Last Done Comments DTAP/TDAP/TD VACCINES (6 - Tdap) 2013 07/08/2006, 03/20/2003, 2002, Additional history exists HPV VACCINE (1 - 3-dose series) 2017 CHLAMYDIA/GONORRHEA SCREENING 2018 MENINGOCOCCAL (Group B) VACC INE SHARED DECISION-MAKING (1 of 2 - Standard) 2018 HEPATITIS C SCREENING 03/02/2020 PAP SMEAR 2023 COVID-19 VACCINE ( - 2023-2 5 season) 2024 DEPRESSION SCREENING 10/17/2024 INFLUENZA VACCINE (Season Ended) 2025 07/23/20 16, 10/26/2005 ZOSTER VACCINE (1 of 2) 2052 HEPATITIS B VACCINE Completed 06/27/2003, 2002, 2002 HIB VACCINE Completed 06/27/2003, 06/19, 2002 PNEUMOCOCCAL VACCINE Completed 06/27/2003, 2002, 2002, Additional history exists MENINGOCOCCAL GROUPS A/C/Y/W VACCINE Completed 07/31/2019, 07/23/2016 HIV SCREENING Completed 05/18/2024 Insurance [facility] MEDICA[facility] [place]
--- OUTSIDE RECORDS SUMMARY | 2025-04-15 11:54 | XMS_ITS | Referral Summary ---
Author Organization [facility] [place] [address] Address [address] [place] [address] Care Team Providers Care Entrepreneurial Finance Professor Name Role Phone Dominique Escalera Primary Care Provider +1- [phone] Allergies No known active allergies Active Problems [...] on file Legal Sex Female 7:15 PM FURNACE UTILITY OPERATOR Gender Identity Not on file Sexual Orientation Not on file Last Filed Vital Signs Vital Sign Reading Time Taken Comments Blood Pressure 137/88 08/24/2023 11:00 PM FURNACE UTILITY OPERATOR Pulse 103 08/24/2023 11:00 PM FURNACE UTILITY OPERATOR Temperature 36.9 C (98.4 F) 08/24/2023 11:00 PM FURNACE UTILITY OPERATOR Respiratory Rate 18 08/24/2023 8:13 PM FURNACE UTILITY OPERATOR Oxygen Saturation 99% 08/24/2023 11:00 PM FURNACE UTILITY OPERATOR Inhaled Oxygen Concentration - - Weight 52 kg (114 lb 10.2 oz) 08/24/2023 8:13 PM FURNACE UTILITY OPERATOR Height 151.1 cm (4' 11.5) 07/23/2016 9:00 AM CD T Body Mass Index - - Plan of Treatment Not on file Insurance [facility] ANTHEM ACCESS CHOICE Care Teams Entrepreneurial Finance Professor Relationship Specialty Start Date End Date Dominique Escalera PA [address] [place] [address] PCP - General Internal Medicine 07/31/19
--- OUTSIDE RECORDS SUMMARY | 2025-04-15 12:09 | XMS_ITS | Clinical Summary ---
Author Organization [facility] Address [address] [place] [address] Care Team Providers Care Sharemilker Name Role Phone None, Provider MD Primary Care Provider Unavaila ble Allergies No known active allergies Social History Tobacco Use Types Packs/Day Years Used Date Smoking Tobacco: Never Assessed Comments Unknown Sex and Gender Information Value Date Recorded Sex Assigned at Not on file Legal Sex Female 7:42 PM RESTORATIVE COORDINATOR Gender Identity Not on file Sexual Orientation Not on file Last Filed Vital Signs Vital Sign Reading Time Taken Comments Blood Pressure 130/94 12/06/2022 7:48 PM RESTORATIVE COORDINATOR Pulse 106 12/06/2022 7:48 PM RESTORATIVE COORDINATOR Temperature 36.6 C (97.9 F) 12/06/2022 7:48 PM RESTORATIVE COORDINATOR Respiratory Rate 20 12/06/2022 7:48 PM RESTORATIVE COORDINATOR Oxygen Saturation 98% 12/06/2022 7:48 PM RESTORATIVE COORDINATOR Inhaled Oxygen Concentration - - Weight 45.4 kg (100 lb) 12/06/2022 7:48 PM RESTORATIVE COORDINATOR Height 154.9 cm (5' 1) 12/06/2022 7:48 PM RESTORATIVE COORDINATOR Body Mass Index 18.89 12/06/2022 7:48 PM RESTORATIVE COORDINATOR Plan of Treatment Health Maintenance Due Date [...] age to complete this topic Care Teams Sharemilker Relationship Specialty Start Date End Date None, Provider, PCP - General UNKNOWN PHYSICIAN SPECIALTY 12/06/22
[2025-04-15 12:17] LABS: Strep Group A RT-PCR NOT DETECTED (Negative)
[2025-04-15 12:29] LABS: Influenza A QL RT-PCR Negative (Negative); Influenza B QL RT-PCR Negative (Negative); RSV RNA, RT-PCR Negative (Negative); SARS-CoV-2 RNA PCR Negative (Negative)
[2025-04-15 12:43] VITALS: BP 140/90; PULSE 89; RESP 18; TEMP 36.6; O2SAT 98
== END 2025-04-15 12:44 | disposition home or self-care (01) ==
PROVIDERS: Emergency Provider Emergency Medicine; PCP Nurse Practitioner Family
DX: J06.9 Acute upper respiratory infection, unspecified (principal); F17.290 Nicotine dependence, other tobacco product, uncomplicated; Z20.822 Contact with and (suspected) exposure to COVID-19
CPT/HCPCS: 87637; 87651; 99283

== ENCOUNTER 2025-04-17 11:59 | Outpatient (CLI) | payer BC, OTHER, SELFPAY ==
--- OUTSIDE RECORDS SUMMARY | 2025-04-17 12:03 | XMS_ITS | Clinical Summary ---
Author Organization [facility] Address [address] [place] [address] Care Team Providers Care Recoater Name Role Phone None, Provider MD Primary Care Provider Unavaila ble Allergies No known active allergies Social History Tobacco Use Types Packs/Day Years Used Date Smoking Tobacco: Never Assessed Comments Unknown Sex and Gender Information Value Date Recorded Sex Assigned at Not on file Legal Sex Female 7:42 PM CONDITIONING MACHINE OPERATOR Gender Identity Not on file Sexual Orientation Not on file Last Filed Vital Signs Vital Sign Reading Time Taken Comments Blood Pressure 130/94 12/06/2022 7:48 PM CONDITIONING MACHINE OPERATOR Pulse 106 12/06/2022 7:48 PM CONDITIONING MACHINE OPERATOR Temperature 36.6 C (97.9 F) 12/06/2022 7:48 PM CONDITIONING MACHINE OPERATOR Respiratory Rate 20 12/06/2022 7:48 PM CONDITIONING MACHINE OPERATOR Oxygen Saturation 98% 12/06/2022 7:48 PM CONDITIONING MACHINE OPERATOR Inhaled Oxygen Concentration - - Weight 45.4 kg (100 lb) 12/06/2022 7:48 PM CONDITIONING MACHINE OPERATOR Height 154.9 cm (5' 1) 12/06/2022 7:48 PM CONDITIONING MACHINE OPERATOR Body Mass Index 18.89 12/06/2022 7:48 PM CONDITIONING MACHINE OPERATOR Plan of Treatment Health Maintenance Due [...] age to complete this topic Care Teams Recoater Relationship Specialty Start Date End Date None, Provider, PCP - General UNKNOWN PHYSICIAN SPECIALTY 12/06/22
--- OUTSIDE RECORDS SUMMARY | 2025-04-17 12:03 | XMS_ITS | Clinical Summary ---
Author Organization [facility] Address [address] [facility] [place] [address] Care Team Providers Care Outpatient Program Coordinator Name Role Phone Unavailable Primary Care Provider Unavailabl e Source Comments [facility],non-owned Affiliates and Associated Physician Practices is amultiple site organization consisting of ambulatory clinics and hospital sitesin [place], [place], [place] and [place]. This disclosure is being madepursuant to the Care Everywhere program and may not contain all information available regarding this patient. 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
--- OUTSIDE RECORDS SUMMARY | 2025-04-17 12:03 | XMS_ITS | Clinical Summary ---
Author Organization [facility] [place] [address] Address [address] [place] [address] Care Team Providers Care Vice President Of Software Engineering Name Role Phone Dominique Escalera Primary Care Provider +1- [phone] Allergies No known active allergies Active Problems [...] on file Legal Sex Female 7:15 PM TECHNICAL SUPPORT REPRESENTATIVE Gender Identity Not on file Sexual Orientation Not on file Last Filed Vital Signs Vital Sign Reading Time Taken Comments Blood Pressure 137/88 08/24/2023 11:00 PM TECHNICAL SUPPORT REPRESENTATIVE Pulse 103 08/24/2023 11:00 PM TECHNICAL SUPPORT REPRESENTATIVE Temperature 36.9 C (98.4 F) 08/24/2023 11:00 PM TECHNICAL SUPPORT REPRESENTATIVE Respiratory Rate 18 08/24/2023 8:13 PM TECHNICAL SUPPORT REPRESENTATIVE Oxygen Saturation 99% 08/24/2023 11:00 PM TECHNICAL SUPPORT REPRESENTATIVE Inhaled Oxygen Concentration - - Weight 52 kg (114 lb 10.2 oz) 08/24/2023 8:13 PM TECHNICAL SUPPORT REPRESENTATIVE Height 151.1 cm (4' 11.5) 07/23/2016 9:00 [...] ANTHEM ACCESS ANTHEM ACCESS CHOICE Care Teams Vice President Of Software Engineering Relationship Specialty Start Date End Date Dominique Escalera PA [address] [place] [address] PCP - General Internal Medicine 07/31/19
--- OUTSIDE RECORDS SUMMARY | 2025-04-17 12:03 | XMS_ITS | Referral Summary ---
Author Organization [facility] [place] [address] Address [address] [place] [address] Care Team Providers Care Press Clippings Cutter And Paster Name Role Phone Dominique Escalera Primary Care Provider +1- [phone] Allergies No known active allergies Active Problems [...] on file Legal Sex Female 7:15 PM ALLIED HEALTH INSTRUCTOR Gender Identity Not on file Sexual Orientation Not on file Last Filed Vital Signs Vital Sign Reading Time Taken Comments Blood Pressure 137/88 08/24/2023 11:00 PM ALLIED HEALTH INSTRUCTOR Pulse 103 08/24/2023 11:00 PM ALLIED HEALTH INSTRUCTOR Temperature 36.9 C (98.4 F) 08/24/2023 11:00 PM ALLIED HEALTH INSTRUCTOR Respiratory Rate 18 08/24/2023 8:13 PM ALLIED HEALTH INSTRUCTOR Oxygen Saturation 99% 08/24/2023 11:00 PM ALLIED HEALTH INSTRUCTOR Inhaled Oxygen Concentration - - Weight 52 kg (114 lb 10.2 oz) 08/24/2023 8:13 PM ALLIED HEALTH INSTRUCTOR Height 151.1 cm (4' 11.5) 07/23/2016 9:00 AM CD T Body Mass Index - - Plan of Treatment Not on file Insurance [facility] ANTHEM ACCESS CHOICE Care Teams Press Clippings Cutter And Paster Relationship Specialty Start Date End Date Dominique Escalera PA [address] [place] [address] PCP - General Internal Medicine 07/31/19
[2025-04-17 12:15] LABS: Negative Monotest Control Negative (Negative); Positive Monotest Control Positive (Positive)
== END 2025-04-17 12:00 | disposition home or self-care (01) ==
LOC: CHSLAB 12:01
PROVIDERS: PCP Nurse Practitioner Family; Visit Provider Nurse Practitioner Family
DX: R07.0 Pain in throat (principal)
CPT/HCPCS: 36415; 86308

== ENCOUNTER 2025-05-13 10:45 | Outpatient (CLI) | payer BC, OTHER, SELFPAY ==
[2025-05-13 11:07] LABS: Pregnancy On Board Control Positive
--- OUTSIDE RECORDS SUMMARY | 2025-05-13 11:10 | XMS_ITS | Referral Summary ---
Author Organization [facility] [place] [address] Address [address] [place] [address] Care Team Providers Care Child Day Care Teacher Name Role Phone Dominique Escalera Primary Care Provider +1- [phone] Allergies No known active allergies Active Problems [...] on file Legal Sex Female 7:15 PM FOURCHETTE SEWER Gender Identity Not on file Sexual Orientation Not on file Last Filed Vital Signs Vital Sign Reading Time Taken Comments Blood Pressure 137/88 08/24/2023 11:00 PM FOURCHETTE SEWER Pulse 103 08/24/2023 11:00 PM FOURCHETTE SEWER Temperature 36.9 C (98.4 F) 08/24/2023 11:00 PM FOURCHETTE SEWER Respiratory Rate 18 08/24/2023 8:13 PM FOURCHETTE SEWER Oxygen Saturation 99% 08/24/2023 11:00 PM FOURCHETTE SEWER Inhaled Oxygen Concentration - - Weight 52 kg (114 lb 10.2 oz) 08/24/2023 8:13 PM FOURCHETTE SEWER Height 151.1 cm (4' 11.5) 07/23/2016 9:00 AM CD T Body Mass Index - - Plan of Treatment Not on file Insurance [facility] Member Subscriber Plan / Payer (Ef fective 2023-Present) Name:Carline Marti Member ID:[id number] Relation to Subscriber:Child Name:JONOAUSTIN E Subscriber ID:[id number] Date of :1972 Address: [address] [place] [address] Payer ID:[id number] ([facility]) Type:[employer] Address: [facility] [address] [place] [address] ANTHEM ACCESS CHOICE Care Teams Child Day Care Teacher Relationship Specialty Start Date End Date Dominique Escalera PA [address] [place] [address] PCP - General Internal Medicine 07/31/19
--- OUTSIDE RECORDS SUMMARY | 2025-05-13 11:10 | XMS_ITS | Clinical Summary ---
Author Organization [facility] [place] [address] Address [address] [place] [address] Care Team Providers Care Ticket Taker Name Role Phone Dominique Escalera Primary Care Provider +1- [phone] Allergies No known active allergies Active Problems [...] on file Legal Sex Female 7:15 PM DISTANCE LEARNING TECHNICIAN Gender Identity Not on file Sexual Orientation Not on file Last Filed Vital Signs Vital Sign Reading Time Taken Comments Blood Pressure 137/88 08/24/2023 11:00 PM DISTANCE LEARNING TECHNICIAN Pulse 103 08/24/2023 11:00 PM DISTANCE LEARNING TECHNICIAN Temperature 36.9 C (98.4 F) 08/24/2023 11:00 PM DISTANCE LEARNING TECHNICIAN Respiratory Rate 18 08/24/2023 8:13 PM DISTANCE LEARNING TECHNICIAN Oxygen Saturation 99% 08/24/2023 11:00 PM DISTANCE LEARNING TECHNICIAN Inhaled Oxygen Concentration - - Weight 52 kg (114 lb 10.2 oz) 08/24/2023 8:13 PM DISTANCE LEARNING TECHNICIAN Height 151.1 cm (4' 11.5) 07/23/2016 9:00 [...] Well Visit/Exam 18-64 2020 Influenza Vaccine (#1) 2025 07/23/2016, 2005 Hepatitis B Screening Completed 06/27/2003 , 2002, 2002 Pneumococcal vaccine <65 Completed 003, 2002, 2002, Additional history exists Varicella Vaccines Completed 07/08/2006, 06/27/2003 Insurance ANTHEM ACCESS ANTHEM ACCESS CHOICE Care Teams Ticket Taker Relationship Specialty Start Date End Date Dominique Escalera PA [address] [place] [address] PCP - General Internal Medicine 07/31/19
--- OUTSIDE RECORDS SUMMARY | 2025-05-13 11:10 | XMS_ITS | Clinical Summary ---
Author Organization [facility] Address [address] [place] [address] Care Team Providers Care Protein Scientist Name Role Phone None, Provider MD Primary Care Provider Unavaila ble Allergies No known active allergies Social History Tobacco Use Types Packs/Day Years Used Date Smoking Tobacco: Never Assessed Comments Unknown Sex and Gender Information Value Date Recorded Sex Assigned at Not on file Legal Sex Female 7:42 PM ENDOSCOPE TECHNICIAN Gender Identity Not on file Sexual Orientation Not on file Last Filed Vital Signs Vital Sign Reading Time Taken Comments Blood Pressure 130/94 12/06/2022 7:48 PM ENDOSCOPE TECHNICIAN Pulse 106 12/06/2022 7:48 PM ENDOSCOPE TECHNICIAN Temperature 36.6 C (97.9 F) 12/06/2022 7:48 PM ENDOSCOPE TECHNICIAN Respiratory Rate 20 12/06/2022 7:48 PM ENDOSCOPE TECHNICIAN Oxygen Saturation 98% 12/06/2022 7:48 PM ENDOSCOPE TECHNICIAN Inhaled Oxygen Concentration - - Weight 45.4 kg (100 lb) 12/06/2022 7:48 PM ENDOSCOPE TECHNICIAN Height 154.9 cm (5' 1) 12/06/2022 7:48 PM ENDOSCOPE TECHNICIAN Body Mass Index 18.89 12/06/2022 7:48 PM ENDOSCOPE TECHNICIAN Plan of Treatment Health Maintenance Due Date [...] age to complete this topic Care Teams Protein Scientist Relationship Specialty Start Date End Date None, Provider, PCP - General UNKNOWN PHYSICIAN SPECIALTY 12/06/22
--- OUTSIDE RECORDS SUMMARY | 2025-05-13 11:10 | XMS_ITS | Clinical Summary ---
Author Organization [facility] Address [address] [facility] [place] [address] Care Team Providers Care Stubber Name Role Phone Unavailable Primary Care Provider Unavailabl e Source Comments [facility],non-owned Affiliates and Associated Physician Practices is amultiple site organization consisting of ambulatory clinics and hospital sitesin [place], [place], [place] and [place]. This disclosure is being madepursuant to the Care Everywhere program and may not contain all information available regarding this patient. Last updated 18.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
--- OUTSIDE RECORDS SUMMARY | 2025-05-13 11:10 | XMS_ITS | Clinical Summary ---
Author Organization [facility] Address [address] [facility] [place] [address] Phone Care Team Providers Care Applications Programmer Analyst Name Role Phone Unavailable Primary Care Provider Unavailabl e Allergies No known active allergies Medications vits15/iron/folic /dss ( VIT 99-[id number]-DSS ORAL) Take by mouth daily. Active famotidine [...] Encounters Date Type Department Care Team Description 05/01/2025 External Device Data [facility]CTION Provider, Abstract 05/01/2025 External Device Data [facility] Provider, Abstract 05/01/2025 External Device Data [facility] Provider, Abstract 04/30/2025 External Device Data [facility] Provider, Abstract 04/09/2025 External Device Data [facility]CTION Provider, [...] drink = 0.6 oz pur e alcohol) Comments No Sex and Gender Information Value [...] 2023 PAP SMEAR 2023 INFLUENZA VACCINE (#1) 2025 07/23/2016 HEPATITIS B VACCINES Completed 06/27/2003, 2002, 2002 Insurance [employer] [place] Member Subscriber Plan / Payer (Ef fective 2024-Present) Name:KaiaCarline Relation to Subscriber:Self Name:Bryn Martinkarla Mccartney Payer ID:[id number] ([employer]) Type:[employer] Address: [address] OUT OF STATE [employer] PLANS (INTERNAL) [facility] Internal Plans Advance Directives For more information, please contact: [phone] * Full Code (Latest Code Status on [...]
[2025-05-13 11:26] LABS: MALB Creatinine Ratio 14.2 mg/g (0-30)
[2025-05-13 11:28] LABS: Iron 36 ug/dL (37-170)
[2025-05-13 11:38] LABS: Percent Iron Saturation 7 % (20-50)
== END 2025-05-13 10:46 | disposition home or self-care (01) ==
LOC: CHSLAB 10:46
PROVIDERS: PCP Nurse Practitioner Family; Visit Provider Nurse Practitioner Family
DX: N28.9 Disorder of kidney and ureter, unspecified (principal); R00.2 Palpitations; R06.02 Shortness of breath; R53.82 Chronic fatigue, unspecified
CPT/HCPCS: 36415; 81025; 82043; 82306; 83540; 83550

== ENCOUNTER 2025-05-17 07:54 | Outpatient (CLI) | payer BC, OTHER, SELFPAY ==
--- NOTE | ~2025-05-17 | US_ITS ---
US retroperitoneal comp 05/17/2025 08:18 Procedure: Realtime transabdominal ultrasound of the kidneys and bladder. Indication: Renal parenchymal disease. History of renal reflux Comparison: No prior studies for comparison. Findings: There is multiple areas focal cortical renal thinning in the right kidney, consistent with prior reflux. There is mild focal areas of cortical thinning in the left kidney. No hydronephrosis. N o stones. The right kidney measures 9.8 cm and left kidney measures 12.2 cm. Bladder within normal l imits. 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 Reviewed, dictated and finalized at location A. Impression: 1: Multiple areas of bilateral renal cortical thinning consistent with reflux n ephropathy.
--- NOTE | ~2025-05-17 | CT_ITS ---
Non-contrast CT scan of the Abdomen and Pelvis Clinical indication: Disorder of kidney and ureter Technique: 2.5 mm axial scans were obtained through the abdomen and pelvis without intravenous or or al contrast. Dose reduction technique was used on this scan by utilizing automated exposure control a nd iterative reconstruction technique. The dose-length product (DLP) was 217.12 mGy-cm. COMPARISON: 05/12/2023 Findings: Images through the lung bases reveal no abnormalities. Left kidney unremarkable. Right kidney is mildly atrophic and lobulated. No stone or hydronephrosis o n either side. No definite renal mass seen on noncontrast exam. The liver, spleen, pancreas, gallbladder, and adrenals appear normal. There is no aortic aneurysm. There is no evidence of bowel obstruction. Images through the pelvis were performed. There is no evidence of ascites or lymphadenopathy. Urinary bladder unremarkable. No pelvic mass seen. Impression: Mildly atrophic and lobulated right kidney as compared to the left. No stone, hydronephrosis, or santa l mass identified. Reviewed, dictated and finalized at location . Impression: Mildly atrophic and lobulated right kidney as compared to the left. No stone, h ydronephrosis, or renal mass identified.
--- OUTSIDE RECORDS SUMMARY | 2025-05-17 07:58 | XMS_ITS | Clinical Summary ---
Author Organization [facility] [place] [address] [facility] Address [address] [place] [address] Care Team Providers Care Environmental Services Director Name Role Phone Dominique Escalera Primary Care Provider +1- [phone] Allergies No known active allergies Active Problems [...] on file Legal Sex Female 7:15 PM MILK COLLECTOR Gender Identity Not on file Sexual Orientation Not on file Last Filed Vital Signs Vital Sign Reading Time Taken Comments Blood Pressure 137/88 08/24/2023 11:00 PM MILK COLLECTOR Pulse 103 08/24/2023 11:00 PM MILK COLLECTOR Temperature 36.9 C (98.4 F) 08/24/2023 11:00 PM MILK COLLECTOR Respiratory Rate 18 08/24/2023 8:13 PM MILK COLLECTOR Oxygen Saturation 99% 08/24/2023 11:00 PM MILK COLLECTOR Inhaled Oxygen Concentration - - Weight 52 kg (114 lb 10.2 oz) 08/24/2023 8:13 PM MILK COLLECTOR Height 151.1 cm (4' 11.5) 07/23/2016 9:00 [...] ANTHEM ACCESS ANTHEM ACCESS CHOICE Care Teams Environmental Services Director Relationship Specialty Start Date End Date Dominique Escalera PA [address] [place] [address] PCP - General Internal Medicine 07/31/19
--- OUTSIDE RECORDS SUMMARY | 2025-05-17 07:58 | XMS_ITS | Clinical Summary ---
Author Organization [facility] Address [address] [place] [address] Care Team Providers Care Chopper Operator Name Role Phone None, Provider MD Primary Care Provider Unavaila ble Allergies No known active allergies Social History Tobacco Use Types Packs/Day Years Used Date Smoking Tobacco: Never Assessed Comments Unknown Sex and Gender Information Value Date Recorded Sex Assigned at Not on file Legal Sex Female 7:42 PM DYNAMOTOR REPAIRER Gender Identity Not on file Sexual Orientation Not on file Last Filed Vital Signs Vital Sign Reading Time Taken Comments Blood Pressure 130/94 12/06/2022 7:48 PM DYNAMOTOR REPAIRER Pulse 106 12/06/2022 7:48 PM DYNAMOTOR REPAIRER Temperature 36.6 C (97.9 F) 12/06/2022 7:48 PM DYNAMOTOR REPAIRER Respiratory Rate 20 12/06/2022 7:48 PM DYNAMOTOR REPAIRER Oxygen Saturation 98% 12/06/2022 7:48 PM DYNAMOTOR REPAIRER Inhaled Oxygen Concentration - - Weight 45.4 kg (100 lb) 12/06/2022 7:48 PM DYNAMOTOR REPAIRER Height 154.9 cm (5' 1) 12/06/2022 7:48 PM DYNAMOTOR REPAIRER Body Mass Index 18.89 12/06/2022 7:48 PM DYNAMOTOR REPAIRER Plan of Treatment Health Maintenance Due Date [...] age to complete this topic Care Teams Chopper Operator Relationship Specialty Start Date End Date None, Provider, PCP - General UNKNOWN PHYSICIAN SPECIALTY 12/06/22
--- OUTSIDE RECORDS SUMMARY | 2025-05-17 07:58 | XMS_ITS | Clinical Summary ---
Author Organization [facility] Address [address] [place] [address] Care Team Providers Care Cardiovascular Radiologic Technologist Name Role Phone Unavailable Primary Care Provider Unavailabl e Source Comments [facility],non-owned Affiliates and Associated Physician Practices is amultiple site organization consisting of ambulatory clinics and hospital sitesin [place], [place] and [place]. This disclosure is being madepursuant to the Care Everywhere program and may not contain all information available regarding this patient. 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
--- OUTSIDE RECORDS SUMMARY | 2025-05-17 07:58 | XMS_ITS | Referral Summary ---
Author Organization [facility] [address] Address [address] [place] [address] Care Team Providers Care Past Due Accounts Clerk Name Role Phone Dominique Escalera Primary Care Provider +1- [phone] Allergies No known active allergies Active Problems [...] on file Legal Sex Female 7:15 PM PRINCIPAL DATABASE DEVELOPER Gender Identity Not on file Sexual Orientation Not on file Last Filed Vital Signs Vital Sign Reading Time Taken Comments Blood Pressure 137/88 08/24/2023 11:00 PM PRINCIPAL DATABASE DEVELOPER Pulse 103 08/24/2023 11:00 PM PRINCIPAL DATABASE DEVELOPER Temperature 36.9 C (98.4 F) 08/24/2023 11:00 PM PRINCIPAL DATABASE DEVELOPER Respiratory Rate 18 08/24/2023 8:13 PM PRINCIPAL DATABASE DEVELOPER Oxygen Saturation 99% 08/24/2023 11:00 PM PRINCIPAL DATABASE DEVELOPER Inhaled Oxygen Concentration - - Weight 52 kg (114 lb 10.2 oz) 08/24/2023 8:13 PM PRINCIPAL DATABASE DEVELOPER Height 151.1 cm (4' 11.5) 07/23/2016 9:00 AM CD T Body Mass Index - - Plan of Treatment Not on file Insurance [facility] ANTHEM ACCESS CHOICE Care Teams Past Due Accounts Clerk Relationship Specialty Start Date End Date Dominique Escalera PA [address] [place] [address] PCP - General Internal Medicine 07/31/19
--- OUTSIDE RECORDS SUMMARY | 2025-05-17 07:58 | XMS_ITS | Clinical Summary ---
Author Organization [facility] Address [address] [place] [address] Phone Care Team Providers Care Survey Compiler Name Role Phone Unavailable Primary Care Provider Unavailabl e Allergies No known active allergies Medications vits15/iron/folic /dss ( VIT 83-[id number]-DSS ORAL) Take by mouth daily. Active famotidine [...] Martinkarla Mccartney Payer ID:[id number] (NAIC) Type:PPO Address: [address] OUT OF STATE RX CABRALES PLANS (INTERNAL) [facility] Internal Plans Advance Directives For more information, please contact: [phone] * Full Code (Latest Code Status on [...]
== END 2025-05-17 07:55 | disposition home or self-care (01) ==
LOC: CHSIMG 07:55
PROVIDERS: PCP Nurse Practitioner Family; Visit Provider Nurse Practitioner Family
DX: N28.9 Disorder of kidney and ureter, unspecified (principal); I10 Essential (primary) hypertension
CPT/HCPCS: 74176; 76770

== ENCOUNTER 2025-05-31 08:34 | Outpatient (CLI) | payer BC, OTHER, SELFPAY ==
--- OUTSIDE RECORDS SUMMARY | 2025-05-31 08:43 | XMS_ITS | Clinical Summary ---
Author Organization [facility] Address [address] [place] [place] [address] Care Team Providers Care Modeling Teacher Name Role Phone Unavailable Primary Care Provider Unavailabl e Source Comments [facility],non-owned Affiliates and Associated Physician Practices is amultiple site organization consisting of ambulatory clinics and hospital sitesin [place], [place], [place] and [place]. This disclosure is being madepursuant to the Care Everywhere program and may not contain all information available regarding this patient. 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
--- OUTSIDE RECORDS SUMMARY | 2025-05-31 08:43 | XMS_ITS | Clinical Summary ---
Author Organization [facility] [address] [facility] Address [address] [place] [address] Care Team Providers Care Order Entry Administrator Name Role Phone Dominique Escalera Primary Care Provider +1- [phone] Allergies No known active allergies Active Problems [...] on file Legal Sex Female 7:15 PM COMMERCIAL ACCOUNTANT Gender Identity Not on file Sexual Orientation Not on file Last Filed Vital Signs Vital Sign Reading Time Taken Comments Blood Pressure 137/88 08/24/2023 11:00 PM COMMERCIAL ACCOUNTANT Pulse 103 08/24/2023 11:00 PM COMMERCIAL ACCOUNTANT Temperature 36.9 C (98.4 F) 08/24/2023 11:00 PM COMMERCIAL ACCOUNTANT Respiratory Rate 18 08/24/2023 8:13 PM COMMERCIAL ACCOUNTANT Oxygen Saturation 99% 08/24/2023 11:00 PM COMMERCIAL ACCOUNTANT Inhaled Oxygen Concentration - - Weight 52 kg (114 lb 10.2 oz) 08/24/2023 8:13 PM COMMERCIAL ACCOUNTANT Height 151.1 cm (4' 11.5) 07/23/2016 9:00 [...] ANTHEM ACCESS ANTHEM ACCESS CHOICE Care Teams Order Entry Administrator Relationship Specialty Start Date End Date Dominique Escalera PA [address] [place] [address] PCP - General Internal Medicine 07/31/19
--- OUTSIDE RECORDS SUMMARY | 2025-05-31 08:43 | XMS_ITS | Clinical Summary ---
Author Organization [facility] Address [address] [place] [address] Phone Care Team Providers Care Surveying Or Spatial Science Technician Name Role Phone Unavailable Primary Care Provider Unavailabl e Allergies No known active allergies Medications vits15/iron/folic /dss ( VIT 91-OFDJ-IOPYE-DSS ORAL) Take by mouth daily. Active famotidine [...] Encounters Date Type Department Care Team Description 05/21/2025 External Device Data [facility] ABSTRACTION Provider, Abstract 05/21/2025 External Device Data [facility] ABSTRACTION Provider, Abstract [...] Martinkarla Mccartney Payer ID:[id number] (NAIC) Type:PPO Address: [address] OUT OF STATE RX CABRALES PLANS (INTERNAL) [facility] Internal Plans Advance Directives For more information, please contact: [phone] * Full Code (Latest Code Status on [...]
[2025-05-31 09:00] VITALS: BP 125/91; PULSE 104; RESP 16; TEMP 36.6; O2SAT 97; BMI 22.9
--- NOTE | 2025-05-31 09:00 | PC.NURSE ---
Patient here for venofer infusion. Tolerated IV start well. Sitting up in chair resting. S/O in room with patient. Call light and belongings provided.
[2025-05-31] MEDS: IRON SUCROSE COMPLEX 300 MG in SODIUM CHLORIDE 0.9% IV 235 ML 125 MG IVPB (09:10)
--- NOTE | 2025-05-31 11:15 | PC.NURSE ---
Venofer infusion complete. Patient tolerated well. Discharge instructions provided, IV remove, tip intact, dressing applied to site. Instructed patient on side effects to be aware of and if any issues arise to call primary MD or go in to ER. Patient states understanding. Denies any questions. Left floor ambulatory.
== END 2025-05-31 11:15 | disposition home or self-care (01) ==
PROVIDERS: PCP Nurse Practitioner Family; Visit Provider Nurse Practitioner Family
DX: D50.9 Iron deficiency anemia, unspecified (principal)
CPT/HCPCS: 96365; 96366; J1756; J7050

== ENCOUNTER 2025-06-03 08:22 | Outpatient (CLI) | payer BC, OTHER, SELFPAY ==
--- OUTSIDE RECORDS SUMMARY | 2025-06-03 08:35 | XMS_ITS | Clinical Summary ---
Author Organization [facility] Address [address] [place] [address] Care Team Providers Care Mirror Maker Name Role Phone Unavailable Primary Care Provider Unavailabl e Source Comments [facility],non-owned Affiliates and Associated Physician Practices is amultiple site organization consisting of ambulatory clinics and hospital sitesin [place], [place], [place] and [place]. This disclosure is being madepursuant to the Care Everywhere program and may not contain all information available regarding this patient. 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
--- OUTSIDE RECORDS SUMMARY | 2025-06-03 08:35 | XMS_ITS | Clinical Summary ---
Author Organization [facility] [address] [facility] Address [address] [place] [address] Care Team Providers Care Jute Bag Cutting Machine Operator Name Role Phone Dominique Escalera Primary Care Provider +1- [phone] Allergies No known active allergies Active Problems [...] on file Legal Sex Female 7:15 PM JOURNEYMAN ELECTRICIAN Gender Identity Not on file Sexual Orientation Not on file Last Filed Vital Signs Vital Sign Reading Time Taken Comments Blood Pressure 137/88 08/24/2023 11:00 PM JOURNEYMAN ELECTRICIAN Pulse 103 08/24/2023 11:00 PM JOURNEYMAN ELECTRICIAN Temperature 36.9 C (98.4 F) 08/24/2023 11:00 PM JOURNEYMAN ELECTRICIAN Respiratory Rate 18 08/24/2023 8:13 PM JOURNEYMAN ELECTRICIAN Oxygen Saturation 99% 08/24/2023 11:00 PM JOURNEYMAN ELECTRICIAN Inhaled Oxygen Concentration - - Weight 52 kg (114 lb 10.2 oz) 08/24/2023 8:13 PM JOURNEYMAN ELECTRICIAN Height 151.1 cm (4' 11.5) 07/23/2016 9:00 [...] ANTHEM ACCESS ANTHEM ACCESS CHOICE Care Teams Jute Bag Cutting Machine Operator Relationship Specialty Start Date End Date Dominique Escalera PA [address] [place] [address] PCP - General Internal Medicine 07/31/19
--- OUTSIDE RECORDS SUMMARY | 2025-06-03 08:35 | XMS_ITS | Clinical Summary ---
Author Organization [facility] Address [address] [place] [address] Phone Care Team Providers Care Ground Worker Name Role Phone Unavailable Primary Care Provider Unavailabl e Allergies No known active allergies Medications vits15/iron/folic /dss ( VIT 82-EOPE-EWPKR-DSS ORAL) Take by mouth daily. Active famotidine [...] Martinkarla Mccartney Payer ID:[id number] (NAIC) Type:PPO Address: [address] OUT OF STATE RX CABRALES PLANS (INTERNAL) [facility] Internal Plans Advance Directives For more information, please contact: [phone] * Full Code (Latest Code Status on [...]
[2025-06-03 08:45] VITALS: BMI 22.9
[2025-06-03] MEDS: IRON SUCROSE COMPLEX 300 MG in SODIUM CHLORIDE 0.9% IV 235 ML 125 MG IVPB (08:45)
[2025-06-03 08:52] VITALS: BP 120/71; PULSE 80; RESP 14; TEMP 36.5; O2SAT 98
[2025-06-03 11:01] VITALS: BP 124/70; PULSE 80; RESP 14; TEMP 36.6; O2SAT 98
--- NOTE | 2025-06-03 11:01 | PC.NURSE ---
Tolerated #2 of 3 Venofer infusion well.
== END 2025-06-03 08:23 | disposition home or self-care (01) ==
PROVIDERS: PCP Nurse Practitioner Family; Visit Provider Nurse Practitioner Family
DX: D50.9 Iron deficiency anemia, unspecified (principal)
CPT/HCPCS: 96365; 96366; J1756; J7050

== ENCOUNTER 2025-06-06 13:25 | Outpatient (CLI) | payer BC, OTHER, SELFPAY ==
--- OUTSIDE RECORDS SUMMARY | 2025-06-06 13:41 | XMS_ITS | Clinical Summary ---
Author Organization [facility] Address [address] [facility] [place] [address] Phone Care Team Providers Care Production Maintenance Technician Name Role Phone Unavailable Primary Care Provider Unavailabl e Allergies No known active allergies Medications vits15/iron/folic /dss ( VIT 98-ITTJ-OHCMZ-DSS ORAL) Take by mouth daily. Active famotidine [...] Subscriber Plan / Payer (Ef fective 2024-Present) Name:Carline Marti Mccartney Relation to Subscriber:Self Name:Carline Martial Payer ID:[id number] (NAIC) Type:PPO Address: [address] OUT OF STATE RX CABRALES PLANS (INTERNAL) [facility] Internal Plans Advance Directives For more information, please contact: [phone] * Full Code (Latest Code Status on [...]
--- OUTSIDE RECORDS SUMMARY | 2025-06-06 13:41 | XMS_ITS | Clinical Summary ---
Author Organization [facility] Address [address] [place] [address] Care Team Providers Care Dividing Machine Operator Helper Name Role Phone None, Provider MD Primary Care Provider Unavaila ble Allergies No known active allergies Social History Tobacco Use Types Packs/Day Years Used Date Smoking Tobacco: Never Assessed Comments Unknown Sex and Gender Information Value Date Recorded Sex Assigned at Not on file Legal Sex Female 7:42 PM INSURANCE CLAIMS ADJUSTER Gender Identity Not on file Sexual Orientation Not on file Last Filed Vital Signs Vital Sign Reading Time Taken Comments Blood Pressure 130/94 12/06/2022 7:48 PM INSURANCE CLAIMS ADJUSTER Pulse 106 12/06/2022 7:48 PM INSURANCE CLAIMS ADJUSTER Temperature 36.6 C (97.9 F) 12/06/2022 7:48 PM INSURANCE CLAIMS ADJUSTER Respiratory Rate 20 12/06/2022 7:48 PM INSURANCE CLAIMS ADJUSTER Oxygen Saturation 98% 12/06/2022 7:48 PM INSURANCE CLAIMS ADJUSTER Inhaled Oxygen Concentration - - Weight 45.4 kg (100 lb) 12/06/2022 7:48 PM INSURANCE CLAIMS ADJUSTER Height 154.9 cm (5' 1) 12/06/2022 7:48 PM INSURANCE CLAIMS ADJUSTER Body Mass Index 18.89 12/06/2022 7:48 PM INSURANCE CLAIMS ADJUSTER Plan of Treatment Health Maintenance Due Date [...] age to complete this topic Care Teams Dividing Machine Operator Helper Relationship Specialty Start Date End Date None, Provider, PCP - General UNKNOWN PHYSICIAN SPECIALTY 12/06/22
--- OUTSIDE RECORDS SUMMARY | 2025-06-06 13:41 | XMS_ITS | Clinical Summary ---
Author Organization [facility] Address [address] [facility] [place] [address] Care Team Providers Care Wagon Drill Operator Name Role Phone Unavailable Primary Care Provider Unavailabl e Source Comments [facility],non-owned Affiliates and Associated Physician Practices is amultiple site organization consisting of ambulatory clinics and hospital sitesin [place], [place], [place] and [place]. This disclosure is being madepursuant to the Care Everywhere program and may not contain all information available regarding this patient. 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
--- OUTSIDE RECORDS SUMMARY | 2025-06-06 13:41 | XMS_ITS | Clinical Summary ---
Author Organization [facility] [address] [facility] Address [address] [place] [address] Care Team Providers Care Machine Operator General Name Role Phone Dominique Escalera Primary Care Provider +1- [phone] Allergies No known active allergies Active Problems [...] on file Legal Sex Female 7:15 PM MEDICAL SUPERINTENDENT Gender Identity Not on file Sexual Orientation Not on file Last Filed Vital Signs Vital Sign Reading Time Taken Comments Blood Pressure 137/88 08/24/2023 11:00 PM MEDICAL SUPERINTENDENT Pulse 103 08/24/2023 11:00 PM MEDICAL SUPERINTENDENT Temperature 36.9 C (98.4 F) 08/24/2023 11:00 PM MEDICAL SUPERINTENDENT Respiratory Rate 18 08/24/2023 8:13 PM MEDICAL SUPERINTENDENT Oxygen Saturation 99% 08/24/2023 11:00 PM MEDICAL SUPERINTENDENT Inhaled Oxygen Concentration - - Weight 52 kg (114 lb 10.2 oz) 08/24/2023 8:13 PM MEDICAL SUPERINTENDENT Height 151.1 cm (4' 11.5) 07/23/2016 9:00 [...] ANTHEM ACCESS ANTHEM ACCESS CHOICE Care Teams Machine Operator General Relationship Specialty Start Date End Date Dominique Escalera PA [address] [place] [address] PCP - General Internal Medicine 07/31/19
[2025-06-06 13:43] VITALS: BP 110/68; PULSE 88; RESP 14; TEMP 36.6; O2SAT 99; BMI 23.6
[2025-06-06] MEDS: IRON SUCROSE COMPLEX 200 MG, IRON SUCROSE COMPLEX 100 MG in SODIUM CHLORIDE 0.9% IV 250 ML 125 MG IVPB (13:45)
[2025-06-06 15:50] VITALS: BP 118/73; PULSE 80; RESP 14; O2SAT 99
--- NOTE | 2025-06-06 15:52 | PC.NURSE ---
Tolerated #3 of 3 IV Venofer infusions. SEE MAR/patient care notes.
== END 2025-06-06 13:26 | disposition home or self-care (01) ==
PROVIDERS: PCP Nurse Practitioner Family; Visit Provider Nurse Practitioner Family
DX: D50.9 Iron deficiency anemia, unspecified (principal)
CPT/HCPCS: 96365; 96366; J1756; J7050

== ENCOUNTER 2025-06-10 13:19 | Outpatient (CLI) | payer BC, OTHER, SELFPAY ==
--- OUTSIDE RECORDS SUMMARY | 2025-06-10 13:25 | XMS_ITS | Clinical Summary ---
Author Organization [facility] Address [address] [place] [address] Phone Care Team Providers Care Power Ballast Machine Operator Name Role Phone Unavailable Primary Care Provider Unavailabl e Allergies No known active allergies Medications vits15/iron/folic /dss ( VIT 22-LYXN-[id number]-DSS ORAL) Take by mouth daily. Active famotidine [...] / Payer (Ef fective 2024-Present) Name:Carline Marti Relation to Subscriber:Self Name:KendletonCarline Payer ID:[id number] (NAIC) Type:O Address: [address] OUT OF STATE RX CABRALES PLANS (INTERNAL) [facility] Plans Advance Directives For more information, please contact: [phone] * Full Code (Latest Code Status on [...]
--- OUTSIDE RECORDS SUMMARY | 2025-06-10 13:25 | XMS_ITS | Clinical Summary ---
Author Organization [facility] Address [address] [facility] [place] [address] Care Team Providers Care Power System Engineer Name Role Phone Unavailable Primary Care Provider Unavailabl e Source Comments [facility],non-owned Affiliates and Associated Physician Practices is amultiple site organization consisting of ambulatory clinics and hospital sitesin [place], [place], [place] and [place]. This disclosure is being madepursuant to the Care Everywhere program and may not contain all information available regarding this patient. 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
--- OUTSIDE RECORDS SUMMARY | 2025-06-10 13:25 | XMS_ITS | Clinical Summary ---
Author Organization [facility] Address [address] [place] [address] Care Team Providers Care Hand Cutter Apprentice Name Role Phone None, Provider MD Primary Care Provider Unavaila ble Allergies No known active allergies Social History Tobacco Use Types Packs/Day Years Used Date Smoking Tobacco: Never Assessed Comments Unknown Sex and Gender Information Value Date Recorded Sex Assigned at Not on file Legal Sex Female 7:42 PM ABSENCE MANAGEMENT CONSULTANT Gender Identity Not on file Sexual Orientation Not on file Last Filed Vital Signs Vital Sign Reading Time Taken Comments Blood Pressure 130/94 12/06/2022 7:48 PM ABSENCE MANAGEMENT CONSULTANT Pulse 106 12/06/2022 7:48 PM ABSENCE MANAGEMENT CONSULTANT Temperature 36.6 C (97.9 F) 12/06/2022 7:48 PM ABSENCE MANAGEMENT CONSULTANT Respiratory Rate 20 12/06/2022 7:48 PM ABSENCE MANAGEMENT CONSULTANT Oxygen Saturation 98% 12/06/2022 7:48 PM ABSENCE MANAGEMENT CONSULTANT Inhaled Oxygen Concentration - - Weight 45.4 kg (100 lb) 12/06/2022 7:48 PM ABSENCE MANAGEMENT CONSULTANT Height 154.9 cm (5' 1) 12/06/2022 7:48 PM ABSENCE MANAGEMENT CONSULTANT Body Mass Index 18.89 12/06/2022 7:48 PM ABSENCE MANAGEMENT CONSULTANT Plan of Treatment Health Maintenance Due Date [...] age to complete this topic Care Teams Hand Cutter Apprentice Relationship Specialty Start Date End Date None, Provider, PCP - General UNKNOWN PHYSICIAN SPECIALTY 12/06/22
--- OUTSIDE RECORDS SUMMARY | 2025-06-10 13:25 | XMS_ITS | Clinical Summary ---
Author Organization [facility] [address] [place] [address] Care Team Providers Care Punch Card Operator Name Role Phone Dominique Escalera Primary Care Provider +1- [phone] Allergies No known active allergies Active Problems [...] on file Legal Sex Female 7:15 PM STATION GATEMAN Gender Identity Not on file Sexual Orientation Not on file Last Filed Vital Signs Vital Sign Reading Time Taken Comments Blood Pressure 137/88 08/24/2023 11:00 PM STATION GATEMAN Pulse 103 08/24/2023 11:00 PM STATION GATEMAN Temperature 36.9 C (98.4 F) 08/24/2023 11:00 PM STATION GATEMAN Respiratory Rate 18 08/24/2023 8:13 PM STATION GATEMAN Oxygen Saturation 99% 08/24/2023 11:00 PM STATION GATEMAN Inhaled Oxygen Concentration - - Weight 52 kg (114 lb 10.2 oz) 08/24/2023 8:13 PM STATION GATEMAN Height 151.1 cm (4' 11.5) 07/23/2016 9:00 [...] ANTHEM ACCESS ANTHEM ACCESS CHOICE Care Teams Punch Card Operator Relationship Specialty Start Date End Date Dominique Escalera PA [address] [place] [address] PCP - General Internal Medicine 07/31/19
[2025-06-10 13:54] LABS: Hemoglobin A1C < 4.7 % (<5.7)
[2025-06-10 14:17] LABS: Iron 119 ug/dL (37-170)
== END 2025-06-10 13:20 | disposition home or self-care (01) ==
LOC: CHSLAB 13:21
PROVIDERS: PCP Nurse Practitioner Family; Visit Provider Nurse Practitioner Family
DX: D50.9 Iron deficiency anemia, unspecified (principal)
CPT/HCPCS: 36415; 83036; 83540

== ENCOUNTER 2025-08-27 16:13 | Outpatient (CLI) | payer BC, OTHER, SELFPAY ==
--- OUTSIDE RECORDS SUMMARY | 2025-08-27 16:16 | XMS_ITS | Clinical Summary ---
Author Organization [facility] Address [address] [place] [id number] Care Team Providers Care Bowling Alley Manager Name Role Phone None, Provider MD Primary Care Provider Unavaila ble Allergies No known active allergies Social History Tobacco Use Types Packs/Day Years Used Date Smoking Tobacco: Never Assessed Comments Unknown Sex and Gender Information Value Date Recorded Sex Assigned at Not on file Legal Sex Female 7:42 PM SILK SCREEN PAINTER Gender Identity Not on file Sexual Orientation Not on file Last Filed Vital Signs Vital Sign Reading Time Taken Comments Blood Pressure 130/94 12/06/2022 7:48 PM SILK SCREEN PAINTER Pulse 106 12/06/2022 7:48 PM SILK SCREEN PAINTER Temperature 36.6 C (97.9 F) 12/06/2022 7:48 PM SILK SCREEN PAINTER Respiratory Rate 20 12/06/2022 7:48 PM SILK SCREEN PAINTER Oxygen Saturation 98% 12/06/2022 7:48 PM SILK SCREEN PAINTER Inhaled Oxygen Concentration - - Weight 45.4 kg (100 lb) 12/06/2022 7:48 PM SILK SCREEN PAINTER Height 154.9 cm (5' 1) 12/06/2022 7:48 PM SILK SCREEN PAINTER Body Mass Index 18.89 12/06/2022 7:48 PM SILK SCREEN PAINTER Plan of Treatment Health Maintenance Due Date [...] Standard) 2018 Hepatitis C 2020 COVID-19 Vaccine ( season) 2025 Influenza Adult (#1) 2025 10/26/2005 Hepatitis B Vaccines Completed 06/27/2003, 2002, 2002 Pneumococcal Vaccine: Pediatrics (0 to 5 Years) and At-Risk Patients (6 to 49 Years) Aged Out 06/27/2003, 2002, 2002, Additional history exists No longer eligible based on patient's age to complete this topic Hepatitis A Vaccines Completed 10/26/2005, 03/24/20 05 Meningococcal Vaccine Completed 07/31/2019 RSV Immunizations Under 20 Months Aged Out No longer eligible based on patient's age to complete this topic Care Teams Bowling Alley Manager Relationship Specialty Start Date End Date None, Provider, MD PCP - General UNKNOWN PHYSICIAN SPECIALTY 12/06/22
--- OUTSIDE RECORDS SUMMARY | 2025-08-27 16:16 | XMS_ITS | Clinical Summary ---
Author Organization [facility] [address] Address [address] [place] [address] Care Team Providers Care Project Surveyor Name Role Phone Dominique Escalera Primary Care Provider [phone] Allergies No known active allergies Active Problems [...] on file Legal Sex Female 7:15 PM MAINTENANCE AND UTILITIES SUPERVISOR Gender Identity Not on file Sexual Orientation Not on file Last Filed Vital Signs Vital Sign Reading Time Taken Comments Blood Pressure 137/88 08/24/2023 11:00 PM MAINTENANCE AND UTILITIES SUPERVISOR Pulse 103 08/24/2023 11:00 PM MAINTENANCE AND UTILITIES SUPERVISOR Temperature 36.9 C (98.4 F) 08/24/2023 11:00 PM MAINTENANCE AND UTILITIES SUPERVISOR Respiratory Rate 18 08/24/2023 8:13 PM MAINTENANCE AND UTILITIES SUPERVISOR Oxygen Saturation 99% 08/24/2023 11:00 PM MAINTENANCE AND UTILITIES SUPERVISOR Inhaled Oxygen Concentration - - Weight 52 kg (114 lb 10.2 oz) 08/24/2023 8:13 PM MAINTENANCE AND UTILITIES SUPERVISOR Height 151.1 cm (4' 11.5) 07/23/2016 9:00 [...] ANTHEM ACCESS ANTHEM ACCESS CHOICE Care Teams Project Surveyor Relationship Specialty Start Date End Date Dominique Escalera PA [address] [place] [address] PCP - General Internal Medicine 07/31/19
--- OUTSIDE RECORDS SUMMARY | 2025-08-27 16:16 | XMS_ITS | Data Portability ---
Author Organization [facility] [place] Address [address] [place] [address] [place] [address] Assessment Encounter Date Assessment Date Assessment LastModified by Organization Details LastModified Time 05/18/2024 05/18/2024 Patient is ___weeks . Discussed plan. [email or web address] Not available 05/18/2024 11:14:30 Plan of Treatment Reminders Order Date Submit Date Provider Last Modified By Organization Details Last Modified Time Details Appointments None recorded. Lab test, urine 2024 025 [place], [address], [place], [address], 5 16:27:44 Referral None recorded. Procedures None recorded. Surgeries None recorded. Imaging US, obstetric, follow-up [address] [email or web address] [place], [address], [place], [address], 4 20:10:07 US, doppler, umbilical artery velocimetry 2023 024 [email or web address] [place], [address], [place], [address], 4 20:10:07 US, obstetric, transvagina l 2023 024 [email or web address] [place], [address], [place], [address], 4 20:10:07 US, obstetric, limited 2023 [email or web address] [place] [facility] [address], [place], [address], 4 19:11:08 US, obstetric, transvagina l 2023 [email or web address] [place] [facility] [address], [place], [address], 4 19:11:08 Medication Orders None recorded. Patient TargetsNo targets recorded. Patient InstructionsNo instructions recorded. Reason for Referral None Reported. Results Created Date Observation Date Name Description Value Unit Range Abnormal Flag Note LastModifiedBy Organization Detail LastModifiedTime 05/18/20 24 05/18/2024 HEMAT OCRIT (HCT) HCT 37.6 % (based on docume nted legal sex) 34.0-4 5.0 Not Available [facility] (Lab) [address], [place], [address], 05/19/2024 15:57:55 05/18/20 24 05/18/2024 HEMOG LOBIN (HGB) HGB 12.1 g/dL (based on docume nted legal sex) 11.6-1 5.4 Not Available [facility] (Lab) [address] [place], [address], 05/19/2024 15:57:56 05/18/20 24 05/18/2024 GTT - GESTA MARGIE L SCREE N, ACOG OB glucose, 1 hour screen 151 mg/dL 70-135 high Not Available [facility] (Lab) [address] [place], [address], 05/19/2024 15:57:56 05/18/20 24 05/18/2024 HIV 1/2 ANTIG EN/AN TIBOD Y, REFLE X CONFI RMATI ON HIV antigen/anti body Nonrea ctive nonrea ctive HIV-1 antig en and HIV-1 /HIV- 2 antib odies were not detec nikhil. No labor atory evide nce of HIV infec tion. Not Available [facility] (Lab) [address], [place], [address], 05/19/2024 15:57:57 05/18/20 24 05/18/2024 RPR SCREE N, REFLE X TITER /CONF IRMAT ION RPR screen Nonrea ctive nonrea ctive Not Available [facility] (Lab) [address], [place], [address], 05/19/2024 15:57:57 05/21/20 24 05/21/2024 GTT - GESTA MARGIE L, 3 HOUR, ACOG glucose, fasting acog 80 mg/dL Not Available [facility] (Lab) [address], [place], [address], 05/24/2024 08:16:43 05/21/20 24 05/21/2024 GTT - GESTA MARGIE L, 3 HOUR, ACOG glucose, 1 hour acog 171 mg/dL 70-179 Not Available [facility] (Lab) [address] [place], [address], 05/24/2024 08:16:43 05/21/20 24 05/21/2024 GTT - GESTA MARGIE L, 3 HOUR, ACOG glucose, 2 hour acog 137 mg/dL 70-154 Not Available [facility] (Lab) [address] [place], [address], 05/24/2024 08:16:43 05/21/20 24 05/21/2024 GTT - GESTA MARGIE L, 3 HOUR, ACOG glucose, 3 hour acog 112 mg/dL 70-139 Not Available [facility] (Lab) [address] [place], [address], 05/24/2024 08:16:43 06/21/20 25 06/21/2025 pregn char test, urine HCG negati ve Not Available [place] [address], [place], [address], 06/21/2025 16:27:27 03/20/20 24 03/20/2024 US, obste tric, 2nd or 3rd trime ster No observ ation record ed. [email or web address] [place] [address], [place], [address], 03/20/2024 12:55:14 03/20/20 24 03/20/2024 US, obste tric, trans vagin al No observ ation record ed. [email or web address] [place] [address], [place], [address], 03/20/2024 12:55:05 03/20/20 24 03/20/2024 US, obste tric, 2nd or 3rd trime ster No observ ation record ed. GEENA Diane [address], [place], [address], 05/11/2024 13:39:18 03/20/20 24 03/20/2024 US, obste tric, 2nd or 3rd trime ster No observ ation record ed. [email or web address] [address], [place], [address], 03/21/2024 07:32:38 04/05/20 24 04/05/2024 US, obste tric, limit ed No observ ation record ed. [email or web address] [place] [address], [place], [address], 04/05/2024 16:43:01 04/05/20 24 04/05/2024 US, obste tric, trans vagin al No observ ation record ed. [email or web address] [place] [address], [place], [address], 04/05/2024 16:42:49 04/05/20 24 04/05/2024 US, obste tric, limit ed No observ ation record ed. [email or web address] [address], [place], [address], 04/05/2024 19:38:22 04/18/20 24 04/18/2024 US, obste tric, follo w-up No observ ation record ed. [facility] [address], [place], [address], 04/18/2024 18:19:22 04/18/20 24 04/18/2024 US, doppl er, umbil ical arter y veloc imetr y No observ ation record ed. [facility] [address], [place], [address], 04/18/2024 18:19:36 04/18/20 24 04/18/2024 US, obste tric, trans vagin al No observ ation record ed. [facility] [address], [place], [address], 04/18/2024 18:19:48 04/18/20 24 04/18/2024 US, obste tric, follo w-up No observ ation record ed. [email or web address] [address], [place], [address], 04/19/2024 00:12:16 04/27/20 24 04/27/2024 US, echoc ardio gram No observ ation record ed. [facility] [address], [place], [address], 05/11/2024 13:39:17 05/01/20 24 05/01/2024 US, obste tric, follo w-up No observ ation record ed. [email or web address] [facility] [address] , [place], [address], 05/02/2024 16:22:30 05/01/20 24 05/01/2024 US, obste tric, follo w-up No observ ation record ed. [email or web address] [facility] [address] [facility] [address], [place], [address], 05/01/2024 11:31:42 05/08/20 24 05/08/2024 US, obste tric, follo w-up No observ ation record ed. [email or web address] [facility] [address], [place], [address], 05/08/2024 14:23:50 05/08/20 24 05/08/2024 non-s tress test No observ ation record ed. [email or web address] [place] [address], [place], [address], 05/18/2024 17:20:47 05/17/20 24 05/16/2024 US, obste tric, follo w-up No observ ation record ed. [email or web address] [facility] [address] [address], [place], [address], 05/18/2024 11:08:47 05/22/20 24 05/22/2024 US, obste tric, follo w-up No observ ation record ed. [email or web address] [facility] [place] [address], [place], [address], 05/28/2024 11:19:44 05/22/20 24 05/22/2024 US, obste tric, follo w-up No observ ation record ed. [email or web address] [facility] [address], [place], [address], 05/25/2024 11:05:41 05/22/20 24 05/22/2024 US, obste tric, follo w-up No observ ation record ed. [email or web address] [facility] [address], [place], [address], 05/25/2024 11:05:35 05/23/20 24 05/23/2024 imagi ng/di agnos tic resul t No observ ation record ed. [email or web address] [facility] [place] [address] [facility], [place], [address], 05/24/2024 11:51:05 05/24/20 24 05/24/2024 US, obste tric No observ ation record ed. [email or web address] [facility] [place] [address], [place], [address], 05/25/2024 10:42:15 05/28/20 24 05/28/2024 US, obste tric No observ ation record ed. [email or web address] [facility] [place] [address] [facility], [place], [address], 05/30/2024 10:40:01 Result Notes None recorded. Problems Name Problem SNOMED Code Status Onset Date Resolution Date Notes Provider Name and Address Organization Details Recorded Time Family history of Congenit al heart disease 068145586 Completed pt's father with HCM; will order maternal echo Rosio cota, [facility] 4 16:23:34 Family history of Congenit al heart disease 392295619 Active pt's father with HCM; will order maternal echo Rosio Green beata, [facility] 4 16:23:34 growth restrict ion 27026974 Completed 9.5% with elevated UADs at 24 weeks Rosio cota [facility] 4 16:23:34 growth restrict ion 53707433 Active 9.5% with elevated UADs at 24 weeks Rosio cota, [facility] 4 16:23:34 Vesicour eteric reflux 206492813 Active 2023 ppx keflex due to frequent UTIs Rosio cota, [facility] 4 16:23:34 Family history of Cardiomy javedthy 607841165 Active 2023 patient' s father with hypertro phic cardiomy javedthy NATALIIA CRUZ MD [address], [place], [address], [facility] 21:52:17 Vesicour eteric reflux 602643661 Completed 2023 ppx keflex due to frequent UTIs Rosio Larry cota, [facility] 4 16:23:34 Pregnanc y 14486181 Completed 202308/09/2024 Ricci cota, [facility] 4 14:14:15 Pregnanc y-induce d hyperten halie 02474984 Completed 2023 twice weekly antenata l testing, weekly labs, 37 week inductio n NATALIIA CRUZ MD [address], [place], [address], [facility] 14:20:41 Problem Notes None recorded. Procedures Surgical History Date Name Laterality Status Provider Name and Address Organization Details Recorded Time section completed Celina Josh [facility] 06/21/2025 14:18:41 Imaging Results None recorded. Procedure Notes None recorded. Medical Equipment None Reported. Allergies No known drug allergies Medications Name Sig Start Date Stop Date Status Note LastModified by Organization Details LastModified Time cyclobenzap rine 10 mg tablet TAKE 1 TABLET BY MOUTH THREE TIMES A DAY NEEDED FOR MUSCLE SPASM 06/21 completed Not Available Not Available Not Available clindamycin HCl 300 mg capsule 300 MG ORALLY EVERY 8 HOURS 12/07 completed Not Available Not Available Not Available cephalexin 250 mg capsule TAKE 1 CAPSULE 3 TIMES DAILY FOR 7 DAYS 06/21 completed Not Available Not Available Not Available phenazopyri dine 200 mg tablet TAKE 1 TABLET 3 TIMES DAILY FOR 2 DAYS 06/21 completed Not Available Not Available Not Available ondansetron 8 mg disintegrat ing tablet Place 1 tablet twice a day by transling ual route. 2023 active Not Available Not Available Not Avai lable amoxicillin 250 mg/5 mL oral suspension TAKE 500 MG (10 ML) ORALLY EVERY 12 HOURS FOR 10 DAYS FINISH COURSE, DISCARD REMAINING QUANTITY 06/21 completed Not Available Not Available Not Available oseltamivir 75 mg capsule TAKE 1 CAPSULE BY MOUTH TWICE A DAY active Not Available Not Available No t Available lidocaine HCl 2 % mucosal solution APPLY TO AFFECTED MUCOSAL AREA FOUR TIMES DAILY NEEDED FOR PAIN FOR 5 DAYS 12/07 completed Not Available Not Available Not Available Provera 10 mg tablet Take 1 tablet every day by oral route for 10 days. 2024 active Not Available Not Available Not Avai lable lisinopril 5 mg tablet TAKE 1 TABLET BY MOUTH EVERY DAY active Not Available Not Available No t Available amoxicillin 400 mg/5 mL oral suspension TAKE 5ML THREE TIMES A DAY FOR SEVEN DAYS 06/21 completed Not Available Not Available Not Available ondansetron 4 mg disintegrat ing tablet 4 MG ORALLY EVERY 8 HOURS NEEDED FOR NAUSEA AND VOMITING 04/05 completed Not Available Not Available Not Available medroxyprog esterone 150 mg/mL intramuscul ar suspension ADMINISTE R 1 ML INTO THE MUSCLE EVERY 3 MONTHS 06/21 completed Not Available Not Available Not Available amoxicillin 500 mg-potassiu m clavulanate 125 mg tablet TAKE 1 TABLET BY MOUTH 3 TIMES A DAY 12/07 completed Not Available Not Available Not Available Gummies active Not Available Not Available Not Available Vitals Date Recorded Body height Body mass index (BMI) Body weight Systolic And Diastolic Provider Name and Address Organization Details Last Updated DateTime 04/05/2024 155.58 cm 22.3 kg/m2 74468.492 03 g 131/84 mm[Hg] Luanne Moncada [facility] 04/05/2024 13:06:04 Date Recorded Body weight Provider Name an d Address Organization Details Last Updated DateTime 04/18/2024 94228.22067 Arthur Patino [address], [place], [address], [facility] 04/18/2024 17:46:42 Date Recorded Body height Body mass index (BMI) Systolic And Diastolic Provider Name and Address Organization Details Last Updated DateTime 04/18/2024 155.58 cm 22.7 kg/m2 134/85 mm[Hg] [facility] 04/18/2024 17:22:54 Date Recorded Body height Body mass index (BMI) Body weight Systolic And Diastolic Systolic And Diastolic Provider Name and Address Organization Details Last Updated DateTime 05/18/2024 155.58 cm 22.7 kg/m2 69091.4 g 183/107 mm[Hg] 140/90 mm[Hg] [facility] 11:32:11 Date Recorded Body height Body mass index (BMI) Body weight Systolic And Diastolic Provider Name and Address Organization Details Last Updated DateTime 06/21/2025 155.58 cm 24.5 kg/m2 11893.6 g 151/99 mm[Hg] Celina Moreno [facility] 06/21/2025 14:13:19 Social History Question Answer Notes LastModified by Organizat ion Details LastModified Time Tobacco Smoking Status Never Smoker Celina Moreno beata, [facility] 06/21/2025 14:17:30 In The 14 Days Before Symptom Onset, Have You Had Close Contact With A Laboratory-confirm ed COVID-19 While That Case Was Ill? No Information n ot available 12/07/2023 In The 14 Days Before Symptom Onset, Have You Had Close Contact With A Person Who Is Under Investigation For COVID-19 While That Person Was Ill? No Information not available 12/07/2023 Have You Been To An Area Known To Be High Risk For COVID-19? No Information not available 12/07/2023 Sex: Unknown Functional Status Question Answer Note LastModified by Organizat ion Details LastModified Time Do you or have you ever used any other forms of tobacco or nicotine? Yes [email or web address] Information not available 06/21/2025 Do you or have you ever used e-cigarettes or vape? Current user of electronic cigarettes [email or web address] Information not available 06/21/2025 Mental Status None recorded. Family History Relationship [...] N Thrombophilias N Gynecological History Statement/Question Response Flow Moderate Date of LMP 03/27/2025 Was last menstrual period normal N STIs/STDs N HPV Vaccine N Duration of Flow (days) 5 Current Control Method None Are cycles usually normal N Sexually Active? Y Menses Monthly N Date of Last Pap Smear Sexual Problems? N Desired Control Method None LMP Definite Obstetrics History GPAL:G 1 P 0 1 0 1 Type Value Premature 1 Living 1 Total 1 Past Encounters Encounter ID Performer Location Encounter Start Date Encounter Closed Date Diagnosis/Indication Diagnosis SNOMED-CT Code Diagnosis ICD10 Code Diagnosis IMO Codes Diagnosis Note [id number] Kenton Carmichael MD [place] [address] [address] 12/07/2023 15:57:07 12/07/2023 16:45:33 screening 120251109 Z36.87 Z3A.01 [id number] NATALIIA CRUZ MD [place] [address],[place] [address] 12/07/2023 16:07:50 12/13/2023 09:00:23 test positive 263659059 Z32.01 1. Exam today within normal limits.2. [...] Family his tory of Congenital heart disease 006991955 Z82.79 - patient's father with hypertroph ic cardiomyop athy- plan for maternal echo to evaluate patient Vesicoureteric reflux 19 4207368 N13.9 - pending new OB urine culture, consider ppx abx due to history of recurrent UTIs [id number] Kenton Carmichael MD [place] [address],[place] [address] 12/15/2023 15:53:13 12/15/2023 16:30:54 [id number] NATALIIA CRUZ MD [place] [address],[place] [address] 12/28/2023 14:23:44 01/04/2024 15:23:53 Recurrent urinary tract infection 371255213 N39.0 Family his tory of Cardiomyopathy 044810820 Z82.49 Vesicoureteric reflux 19 1216969 N13.9 - pending new OB urine culture, consider ppx abx due to history of recurrent UTIs Gestation period, 8 weeks 04995016 Z3A.08 [id number] Kenton Carmichael MD [place] [address],[place] [address] 01/23/2024 13:49:16 01/23/2024 14:31:16 screening 735070080 Z36.82 Gestation period, 11 weeks 21663630 Z3A.11 [id number] NATALIIA CRUZ MD [place] [address],[place] [address] 01/23/2024 13:50:40 01/23/2024 16:01:12 Vesicoureteric reflux 336216305 N13.9 Low back p ain in 3157646684 106 O26.899 Gestation period, 11 weeks 19003683 Z3A.11 Recurrent urinary tract infection 422316714 N39.0 [id number] NATALIIA CRUZ MD [place] [address],[place] [address] 02/20/2024 13:53:30 02/20/2024 15:20:10 Family history of Cardiomyopathy 534175556 Z82.49 Vesicoureteric reflux 19 5755498 N13.9 Gestation period, 15 weeks 4968664 Z3A.15 [id number] Kenton Carmichael MD [place] [address],[place] [address] 03/20/2024 10:58:01 03/20/2024 14:27:44 screening for malformation 289592874 Z36.3 Z3A.20 [id number] NATALIIA CRUZ MD [place] [address],[place] [address] 03/20/2024 10:59:32 03/20/2024 14:02:18 Family history of Cardiomyopathy 388647407 Z82.49 Family his tory of Congenital heart disease 401295953 Z82.79 - patient's father with hypertroph ic cardiomyop athy- plan for maternal echo to evaluate patient Short cerv ical length in 062466250 O26.879 Gestation period, 20 weeks 20037370 Z3A.20 [id number] Kenton Carmichael MD [place] [address],[place] [address] 04/05/2024 12:29:19 04/05/2024 13:34:49 Routine care 856701733 Z34.02 MD Kennedy Melendez [address],[place] [address] 04/05/2024 12:34:44 04/05/2024 13:54:34 Short cervical length in 248935339 O26.872 Z3A.22 [id number] Kenton Carmichael MD [place] [address],[place] [address] 04/18/2024 16:24:13 04/18/2024 17:12:56 Small for gestational age fetus 230264891 O36.5920 O26.879 Z3A.24 [id number] NATALIIA CRUZ MD [place] [address],[place] [address] 04/18/2024 16:32:26 04/19/2024 08:28:36 Family history of Cardiomyopathy 517899363 Z82.49 Family his tory of Congenital heart disease 197277099 Z82.79 - patient's father with hypertroph ic cardiomyop athy- plan for maternal echo to evaluate patient grow th restriction 21939229 O36.5999 Vesicoureteric reflux 19 4973861 N13.9 Gestation period, 24 weeks 906532052 Z3A.24 [id number] NATALIIA CRUZ MD [place] [address],[place] [address] 05/18/2024 10:56:25 05/22/2024 03:59:04 Family history of Cardiomyopathy 130315666 Z82.49 Family his tory of Congenital heart disease 795838230 Z82.79 - patient's father with hypertroph ic cardiomyop athy- plan for maternal echo to evaluate patient grow th restriction 56577834 O36.5999 - followed by MFM- weekly BPP/UADs, serial growth US - induced hypertension 79601933 O13.9 - twice weekly testing- weekly labs- 37 week induction of labor if stable- discussed risk of progressio n to preeclamps ia and warning signs Gestation period, 28 weeks 15441105 Z3A.28 [id number] NATALIIA CRUZ MD [place] [address],[place] [address] 06/21/2025 14:02:25 06/21/2025 16:51:15 Kidney disease 46447508 N28.9 [address]6300 - hx of vesicouret demetra reflux as child, now told she has kidney failure- following with nephrology , appointmen t later this month- discussed that kidney disease can permanentl y worsen in ; would not recommend unless kidney disease stabilizes or resolves Hypertensive disorder 38 554904 I10 83426430 - prescribed lisinopril however not taking due to side effects of lightheade dness and foul smelling urine- discussed importance of HTN control prior to - will need transition ed to labetalol or procardia prior to as lisinopril is not recommende d in Past pregn char history of pre-eclampsia 2099719842 08175 Z87.59 676717 - delivered at 30 weeks via c section- discussed risk of recurrence which can start earlier than prior pregnancie s- recommend 162mg ASA during next and close observatio n of BP Past pregn char history of section 166005857 Z98.574 4811589 - s/p PLTCS- recommend 18 month interpregn char interval to allow for healing of uterine incision- patient to follow up in 6 months to touch base on recommenda tion of conception based on control of chronic medical problems at that point Irregular periods 205897 07 N92.6 42266 Health Concerns Section Related Observation LastModified by Organization Detai ls LastModified Time None Recorded Concern Status LastModified by Organization Details LastModified Time None Recorded Advance Directives Directive None Recorded Payers Insurance Date Sequence Insurance Name Policy Number Policy Nash Covered Member ID Nash Member ID Guarantor Name 12/12/2024 1 [facility] [id number] Matt E [place] [id number] Carline [place] 06/21/2025 3 [place]line [place] [id number] Carline [place] 07/18/2024 1 *SELF PAY* Ma justus [place] 06/21/2025 2 [facility] (MEDICAID HMO) [id number] Carline [place] [id number] Carline [place] 06/18/2025 1 [facility] [id number] Matt E [place] [id number] Carline [place] Notes Date Note Type Note Provider Name and Address Organization Details Recorded Time 04/05/2024 text/html Generic HPI TemplateReported by Patient Kenton Carmichael MD [address], [place], [address], [facility] 04/05/2024 13:31:15 04/18/2024 text/html Generic HPI TemplateReported by Patient NATALIIA CRUZ MD [address], [place], [address], [facility] 04/18/2024 22:48:38 05/18/2024 text/html Generic HPI TemplateReported by Patient NATALIIA CRUZ MD [address], [place], [address], [facility] 05/21/2024 14:22:11 06/21/2025 text/html ROS as noted in the HPI Patient presents for preconception counseling. She has a history of delivery at 30 weeks for preeclampsia with severe features and delivered at 30 weeks by PLTCS. She was admitted to [facility] for almost a month prior to delivery. She now has been diagnosed with chronic hypertension. She is on lisinopril. She is also followed for kidney disease She was previously on depo but stopped in March. Has not had a period since stopping depo. Not interested in control, has bled continuously on both Nexplanon and Depo. Celina cota, [facility] 06/21/2025 16:28:11 OBGyn Episode Ob Episode Information Episode Created Date Number of Fetuses Patient Bloodtype Patient rh Status Prepregnancy Weight lbs Domestic Partner Domestic Partner Phone Father Name Brand Recorder Status 12/30/19 24 1 B Positive 113 CLOSED Fetus Data First Name Last Name Admitted to NICU Weight (g) Sex Living Outcome Pediatric Complications Fetus ID Race Codes Race Delivery Type 1039.85 966 M Prematur e [id number] Primary Problems Problem Notes MFM referral sent 04/23 [facility] [place]05/16 US, NST & Office visit05/30 US, NST & OV Problem Name Start Date End Date Resolution Snomed Code Not e growth restriction 08154 007 9.5% with elevated UADs at 24 weeks -induced hypertension 05/18/2024 36286319 twice weekly testing, weekly labs, 37 week induction Vesicoureteric reflux 12/12/202319772266059 07 ppx keflex due to frequent UTIs Family history of Congenital heart disease 442296443 pt' s father with HCM; will order [...] Date Ultra Sound Latest Days Gestation 0 [id number] 01/04/2024 08/07/20 24 0 Pre-kaden Flowsheet Flowsheet Date 12/28/2023 Elaine Score Blood Edema Fundus Height Fundus Units Glucose Ketones Leukocytes Nitrite Labor Signs Protein Cervic Dilation Cervic Effacement Cervic Station Type Weight in lbs Pre/Post Dialysis Refused BP Diastolic BP Location Tested BP Systolic BP Type Fetus Heart Rate Present Fetus Movement A No Comments Patient presents to smallpox hospital care. uncomplicated thus far. No nausea [...] Weight in lbs Pre/Post Dialysis Refused Weight 116.420881653759 BP Diastolic BP Location Tested BP Systolic [...] Weight in lbs Pre/Post Dialysis Refused Weight 117.774858597369 BP Diastolic BP Location Tested BP Systolic [...] Weight in lbs Pre/Post Dialysis Refused Weight 117.563305701227 BP Diastolic BP Location Tested BP Systolic [...] Weight in lbs Pre/Post Dialysis Refused Weight 119.320687551830 BP Diastolic BP Location Tested BP Systolic [...] Weight in lbs Pre/Post Dialysis Refused Weight 121.716902752362 BP Diastolic BP Location Tested BP Systolic BP Type 85 134 Fetus Heart Rate Present A 142 Fetus Movement A Yes Comments Doing well, no cramping or b leeding. Baby active. Growth US today demonstrates EFW 9.5%, with elevated UADs. Discussed growth restriction, will send referral to [facility] for evaluation. Cervical length wnl. Back pain [...] Weight in lbs Pre/Post Dialysis Refused Weight 121.343061096153 BP Diastolic BP Location Tested BP Systolic BP Type 107 183 90 140 Fetus Heart Rate Present A 150 Fetus Movement A Yes Comments Good movement. No cram ping or bleeding. Recently saw [facility], who confirmed FGR with elevated UADs. Patient desires transfer of [facility] care to [facility], will change referral. Also discussed new diagnosis of gestational hypertension and implications for the remaining . Would recommend twice weekly testing (ok to split between [facility] and [facility]), weekly labwork, as well as [...] Estim ated Date of Delivery false Thalassemia (Bulgarian, Greenlandic, Mediterranean, Or Background): MCV < 80 false Neural Tube Defect (Meningomyelocele, Spina Bifi da, Or Anencephaly) false Congenital Heart Defect false Down Syndrome false Jarek-Sachs (eg, Sabianist, Cajun, Pitcairn Islander-Queens) f alse Alia Disease false Sickle Cell Disease Or Trait () false Hemophilia Or Other Blood Disorders false Muscular Dystrophy false Cystic Fibrosis false Chester's Chorea false Intellectual Disability/Autism false If Yes, [...]
--- OUTSIDE RECORDS SUMMARY | 2025-08-27 16:16 | XMS_ITS | Clinical Summary ---
Author Organization [facility] Address [address] [place] [address] Care Team Providers Care Job Service Consultant Name Role Phone Unavailable Primary Care Provider Unavailabl e Source Comments [facility],non-owned Affiliates and Associated Physician Practices is amultiple site organization consisting of ambulatory clinics and hospital sitesin [place], [place], [place] and [place]. This disclosure is being madepursuant to the Care Everywhere program and may not contain all information available regarding this patient. 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
--- OUTSIDE RECORDS SUMMARY | 2025-08-27 16:16 | XMS_ITS | Clinical Summary ---
Author Organization [facility] Address [address] [place] [address] Phone Care Team Providers Care District Manager Postal Service Name Role Phone Unavailable Primary Care Provider Unavailabl e Allergies No known active allergies Medications vits15/iron/folic /dss ( VIT [id number]-[id number] ORAL) Take by mouth daily. Active famotidine [...] tablets 5 Tablet 06/05/2024 11:01 PM CDT 4 Active Active Problems Problem Noted Date Diagnosed Date Preeclampsia in period 06/04/2024 Delivery of by section 2023 Severe pre-eclampsia in third trimester 05/28/20 24 Gestational hypertension, third trimester 2023 MFMtx(Jose Francisco)/OBH: pLTCS, PreE w SF, boy (nicu ) 05/23/2024 Encounters Date Type Department Care Team Description 07/02/2025 External Device Data [facility] ABSTRACTION Provider, Abstract [...] Plan / Payer (Ef fective 2024-Present) Name:Carline Martial Relation to Subscriber:Self Name:Carline Marti Payer ID:[id number] (NAIC) Type:PPO Address: [address] [facility] PLANS (INTERNAL) [facility] Internal Plans Advance Directives For more information, please contact: [phone] * Full Code (Latest Code Status on [...]
[2025-08-27 17:14] LABS: Albumin Level 5.0 g/dL (3.5-5.1); Anion Gap 12 mmol/L (4-12); Blood Urea Nitrogen 10 mg/dL (7-17); Calcium 9.9 mg/dL (8.4-10.2); Carbon Dioxide 25 mmol/L (22-30); Chloride 106 mmol/L (98-107); Estimated Glomerular Filt Rate > 60; Glucose 86 mg/dL (65-110); Osmolality Calculated 294 mOsm/kg (285-295); Potassium 3.8 mmol/L (3.4-5.0); Sodium 143 mmol/L (137-145)
[2025-08-27 17:15] LABS: Total Protein Urine Random 10 mg/dL; Ur Ttl Prot Creatinine Ratio 0.06 mg/mg (0-0.20)
== END 2025-08-27 16:14 | disposition home or self-care (01) ==
LOC: CHSLAB 16:14
PROVIDERS: PCP Nurse Practitioner Family; Visit Provider Internal Medicine Nephrology
DX: I10 Essential (primary) hypertension (principal); R80.9 Proteinuria, unspecified
CPT/HCPCS: 36415; 80069; 82570; 84156